=== PATIENT | male | born 1965 | race American Indian/Alaskan Native ===

== ENCOUNTER 2019-03-02 23:28 | Emergency (ER) | payer OTHER, SELFPAY ==
[2019-03-02 23:37] VITALS: BP 136/84; PULSE 80; RESP 18; TEMP 36.8; O2SAT 99
[2019-03-02 23:46] LABS: Appearance Urine UA CLEAR; Bilirubin Urine UA NEGATIVE (NEGATIVE); Color Urine UA YELLOW; Glucose Urine UA NEGATIVE (Negative); Ketones Urine UA NEGATIVE (NEGATIVE); Leukocyte Esterase Urine UA TRACE (NEGATIVE); Nitrite Urine UA NEGATIVE (Negative); Occult Blood Urine UA 3+ (Negative); Protein Urine UA NEGATIVE (Negative); Urobilinogen Urine UA 0.2 E.U./dL (0.2)
[2019-03-02 23:53] LABS: RBC Urine 1-5/HPF (0-5/HPF)
[2019-03-02 23:54] LABS: Bacteria Urine Occasional (0-1)
--- NOTE | 2019-03-02 23:54 | DI.CT.S_ITS ---
PROCEDURE: CT ABDOMEN PELVIS W CON INDICATIONS: generalized abd pain TECHNIQUE: After the administration of intravenous contrast, 5 mm thick sections acquired from the diaphragm to the symphysis. 5 mm coronal and sagittal reformats were acquired. For radiation dose reduction, the following was used: automated exposure control, adjustment of mA and/or kV according to patient size. COMPARISON: [facility], CT, ABD/PELVIS W/CON (PNL), 06/22/2014, 7:54. FINDINGS: Image quality: Excellent. ABDOMEN: Lung bases: Bibasilar dependent atelectasis. Heart size is normal. Solid organs: There is hepatic steatosis. Liver is normal in size and enhancement. Gallbladder is surgically absent. Biliary system is non dilated. Pancreas enhances normally. Spleen is normal in size and enhancement. No adrenal nodules. Kidneys demonstrate normal size and enhancement, without hydronephrosis. A 5 mm nonobstructing right renal stone is present. Peritoneum and bowel: There is diffuse thickening of sigmoid colon. A 2.9 x 4.2 cm thickwalled fluid-filled structure seen right of the sigmoid colon suspicious for a abscess. A few colonic diverticula are noted proximal to the area of thickening. Bowel loops demonstrate normal caliber. No free fluid or air. Nodes and vessels: No retroperitoneal or mesenteric adenopathy by size criteria. Aorta and inferior vena cava are normal in size. Miscellaneous: No ventral hernias. PELVIS: Genitourinary: Bladder wall thickness is normal. Enlarged prostate. Miscellaneous: No inguinal hernias or adenopathy. Bones: No suspicious bony lesions. No vertebral body compression fractures. IMPRESSION: 1. Diffuse thickening of sigmoid colon suggesting segmental colitis or diverticulitis. There are a few colonic diverticula proximal to the area of colonic thickening. A 2.9 x 4.2 cm thick-walled fluid collection is present in the pelvis right of the sigmoid colon, suspicious for an abscess. 2. Hepatic steatosis. 3. A 5 mm nonobstructing right renal stone. 4. Enlarged prostate. No significant discrepancy with the hourly shift manager radiology preliminary report. Dictated by: Lilliam Fisher M.D. on 03/03/2019 at 7:24 Transcribed by: KIMBERLI on 03/03/2019 at 7:28 Approved by: Lilliam Fisher M.D. on 03/03/2019 at 10:41
--- NOTE | 2019-03-02 23:54 | ED.MALEGU ---
HPI - Male Genitourinary General Chief complaint: Urogenital-Male Stated complaint: bladder infection, unable to lay down on rx Time Seen by Provider: 03/02/19 23:42 Source: patient Mode of arrival: Ambulatory Limitations: no limitations History of Present Illness HPI Narrative: Patient is a 54-year-old male arrives the emergency department for right-sided lower back pain radiating down the back of his leg that is worse with palpation and also pain on his right flank radiating around to the front. He states that a couple days ago he had pain with defecating. He went to go see the clinic near his house. He stated that he was started on Augmentin. He stated that he was told that he potentially has a urinary tract infection but he was unsure. He states they did do a urine sample. He also states that the provider that time did a rectal exam potentially told him that he had an infection of his prostate. He has been taking these medications. He states that the pain with defecation is now going on however has the new symptoms that brought him in today. He states he has had a kidney stone in the past. He states that his right-sided flank pain feels somewhat like prior history of kidney stone. States that it was difficult for him to lay down secondary to the pain. Related Data Home Medications Medication Instructions Recorded Confirmed Cephalexin (Keflex) 500 mg PO QID #0 07/11/09 HYDROCODONE/ACET 5/500 - 1 - 2 tab PO Q4-6H PRN #0 07/11/09 (Hydrocodon-Acetaminophen 5-500) Previous Rx's Medication Instructions Recorded ciprofloxacin HCl 500 mg PO BID 14 Days #28 tab 03/03/19 cyclobenzaprine 10 mg PO TID PRN #10 tab 03/03/19 tramadol [Ultram] 50 mg PO Q6H PRN #10 tab 03/03/19 Allergies Allergy/AdvReac Type Severity Reaction Status Date / Time INGREDIENT: NO KNOWN - NO Allergy Unknown Uncoded 06/30/17 12:32 KNOWN DRUG ALLERGY Review of Systems Constitutional Constitutional: Denies fever(s) Cardiovascular Cardiovascular: Denies chest pain and Denies dyspnea Respiratory Respiratory: Denies dyspnea Gastrointestinal Comments: Right-sided flank pain Genitourinary Genitourinary: Denies dysuria Comments: No pain with bowel movements Musculoskeletal Musculoskeletal: Reports back pain and Reports radiating pain into limb (Right leg) Integumentary/Breasts Skin/Breast: Denies rash Neurologic Neurologic: Denies burning sensations Hematologic/Lymphatic Hematologic/Lymphatic: Denies easy bleeding and Denies easy bruising Allergic/Immunologic Allergic/Immunologic: Denies urticaria Patient History Medical History Kidney stones (Acute) Social History Smoking Status: Current every day smoker Smoking Status: Current every day smoker alcohol intake frequency: 0-2 drinks per day Substance Use Type: marijuana Exam Initial Vital Signs Initial Vital Signs: Vital Signs Temperature 98.2 F 03/02/19 23:37 Pulse Rate 80 03/02/19 23:37 Respiratory Rate 18 03/02/19 23:37 Blood Pressure 136/84 03/02/19 23:37 Pulse Oximetry 99 03/02/19 23:37 Const General: cooperative and well developed Orientation: alert, awake and oriented x3 HENMT Head: normal to inspection and normocephalic Resp Effort & Inspection: normal respiratory effort Auscultation: clear to auscultation bilaterally Cardio Rate: regular rate Rhythm: regular rhythm GI Inspection: non-distended Palpation: soft, No firm and No tender Back/Spine/Pelvis Back: CVA tenderness right Other: Right-sided paraspinal lumbar tenderness to palpation Skin Lesions: no lesions Rashes: no rashes Neuro General: alert and awake Cognition: normal cognition Speech: speech normal Extrem General: normal to inspection and capillary refill normal Psych Appearance: grossly normal Course Orders Ordered: ED Orders 03/02/19 23:42 Urinalysis and Microscopic Stat Urine Culture Stat 03/02/19 23:48 Complete Blood Count AUTO DIFF Stat Comprehensive Metabolic Panel Stat Lipase Stat 03/02/19 23:54 CT abdomen pelvis w con Stat Discontinued Medications Cyclobenzaprine HCl (Flexeril 10 Mg Prepack) 1 bottle MISC SEEINSTR ONE Stop: 03/03/19 01:25 Last Admin: 03/03/19 01:38 Dose: 1 bottle Documented by: LEVI Sodium Chloride (Normal Saline 0.9%) 1,000 mls @ 1,000 mls/hr IV BOLUS ONE Stop: 03/03/19 00:52 Last Infusion: 03/03/19 01:38 Dose: 0 mls/hr Documented by: Admin: 03/02/19 23:58 Dose: 1,000 mls/hr Documented by: LYNNE Ketorolac Tromethamine (Toradol) 30 mg IV NOW ONE Stop: 03/02/19 23:54 Last Admin: 03/02/19 23:58 Dose: 30 mg Documented by: LYNNE Tramadol HCl (Ultram 50mg Prepack) 1 bottle MISC SEEINSTR ONE Stop: 03/03/19 01:25 Last Admin: 03/03/19 01:38 Dose: 1 bottle Documented by: LEVI Vital Signs Vital signs: Vital Signs - 8 hr 03/02/19 23:37 03/03/19 01:39 Temperature 98.2 F Pulse Rate 80 78 Respiratory Rate 18 20 Blood Pressure 136/84 129/79 Pulse Oximetry 99 99 MDM - Male Genitourinary Lab Data Result diagrams: 03/02/19 23:48 03/02/19 23:48 Labs: Lab Results 03/02/19 03/02/19 03/02/19 Range/Units 23:42 23:48 23:48 WBC 15.4 H (4.5-11.0) X10^3/uL RBC 5.49 (4.5-5.9) X10^6/uL Hgb 15.2 (13.5-17.5) g/dL Hct 44.3 (41-53) % MCV 80.8 (80-100) fL MCH 27.7 (26-34) PG MCHC 34.3 (30-36) % RDW 14.1 (11.6-14.8) % Plt Count 376 (150-400) X10^3/uL Neut % (Auto) 78.7 H (50-75) % Lymph % (Auto) 13.0 L (25-40) % [place]bour % (Auto) 6.3 (3-14) % Eos % (Auto) 1.6 L (2-4) % Baso % (Auto) 0.4 (0-2) % Neut # (Auto) 34925 H (3743-3158) /uL Lymph # (Auto) 2000 (0884-2684) /uL Barbour # (Auto) 1000 H (0-900) /uL Eos # (Auto) 200 (0-450) /uL Baso # (Auto) 100 (0-100) /uL Sodium 136 L (137-145) mmol/L Potassium 4.4 (3.4-5.1) mmol/L Chloride 103 (98-107) mmol/L Carbon Dioxide 23 (22-32) mmol/L BUN 17 (9-20) mg/dL Creatinine 0.90 (0.66-1.25) mg/dL Estimated GFR > 60.0 (>60) mL/min BUN/Creatinine Ratio 18.9 (6-22) Glucose 137 H (70-100) mg/dL Calcium 10.2 (8.4-10.2) mg/dL Total Bilirubin 0.8 (0.2-1.3) mg/dL AST 17 (17-59) IU/L ALT 13 (<50) IU/L Alkaline Phosphatase 99 (38-126) U/L Total Protein 8.8 H (6.3-8.2) g/dL Albumin 4.8 (3.5-5.0) g/dL Globulin 4.0 (1.7-4.1) g/dL Albumin/Globulin Ratio 1.2 (1.0-2.8) Lipase 104 (23-300) U/L Urine Color Yellow Urine Appearance Clear Urine pH 6.0 (4.5-8.0) Ur Specific Sutton 1.020 (1.000-1.035) Urine Protein Negative (Negative) Urine Glucose (UA) Negative (Negative) g/dL Urine Ketones Negative (NEGATIVE) Urine Occult Blood 3+ H (Negative) Urine Nitrate Negative (Negative) Urine Bilirubin Negative (NEGATIVE) Urine Urobilinogen 0.2 (0.2) E.U./dL Ur Leukocyte Esterase Trace H (NEGATIVE) Urine RBC 1-5/hpf (0-5/HPF) Urine WBC 1-5/hpf (0-5/HPF) Urine Bacteria Occasional (0-1) (None) Hyaline Casts 0-1/lpf (None) Urine Mucus 1+ H (Negative) Ur Culture Indicated? Specimen cultured Imaging Data CT scan - abdomen: Radiologist's impression: Suspected chronic walled-off abscess adjacent to an abnormally thickened sigmoid colon. Recommend further clinical investigation. Nonobstructing right renal stone MDM Narrative Medical decision making narrative: Patient is nontoxic appearing. He is afebrile. Does have a leukocytosis. Is currently on Augmentin. Patient does have hematuria but no other signs of urinary tract infection. His CT scan shows renal stone but no ureteral stone. His right sided lower back pain is most consistent with musculoskeletal etiology. He stated that the radiation down to his right leg he resolved with Toradol. No CT scan findings that definitively explain the right-sided flank pain. Potentially the right-sided renal stone or potentially he has passed a stone prior to the CT scan. I do have low suspicion for pyelonephritis. He states that the rectal pain that he had a couple days ago is not there. He did have a rectal exam at his last visit according to his report and was told that he potentially has prostatitis. The very small 2.5 x 1 x 1 suspicion of a abscess in the left side of the abdomen exit the sigmoid colon does not correspond to any of his presenting symptoms today. I did discuss this with Dr. Joy with general surgery who stated that that size of an abscess would not be amenable to IR drainage and he stated that it would not be a surgical issue. Plan will be is to change the patient's antibiotics to ciprofloxacin. This would treat prostatitis, urinary tract infection and would potentially cover if this finding on the CT scan his not necessarily chronic but more acute. Given the fact that he is nontoxic appearing and afebrile on could tolerate oral intakes feel that we could treat this as an outpatient. Patient is going to contact his primary provider for follow-up. He was given return precautions and follow-up instructions. He expressed understanding and agreement with plan. Discharge Plan Departure Patient Disposition: Home Clinical Impression: Acute flank pain Acute lumbar back pain Qualifiers: Back pain laterality: right Sciatica presence: with sciatica Discharge Date/Time: 03/03/19 01:40 Instructions: DI for Low Back Pain Activity Restrictions/Additional Instructions: Recommend that you stop taking the antibiotic that you were prescribed the other day. Start taking the prescriptions to were given this evening. Recommend that tomorrow or the beginning of next week you contact your primary provider for a follow-up. Return to the emergency department for any new or worsening symptoms Prescriptions: New tramadol [Ultram] 50 mg tablet 50 mg PO Q6H PRN (Reason: pain) Qty: 10 RF: 0 cyclobenzaprine 10 mg tablet 10 mg PO TID PRN (Reason: muscle spasm) Qty: 10 RF: 0 ciprofloxacin HCl 500 mg tablet 500 mg PO BID 14 Days Qty: 28 RF: 0 No Action Cephalexin (Keflex) 500 mg PO QID Qty: 0 RF: 0 HYDROCODONE/ACET 5/500 - (Hydrocodon-Acetaminophen 5-500) 1 - 2 tab PO Q4-6H PRN Qty: 0 RF: 0
[2019-03-02 23:55] LABS: WBC Urine 1-5/HPF (0-5/HPF)
[2019-03-02 23:56] LABS: Hyaline Casts Urine 0-1/LPF; Mucus Urine 1+ (Negative)
[2019-03-02 23:57] LABS: Culture Indicated Urine Specimen Cultured
[2019-03-02] MEDS: SODIUM CHLORIDE 0.9% 1,000 ML 1000 ML IV (23:58)
[2019-03-02] MEDS: KETOROLAC 60 MG/2 ML VIAL 30 MG IV (23:58)
[2019-03-03 00:03] LABS: Add Manual Diff / Slide Review NO; Basophils Absolute Auto 100 /uL (0-100); Basophils Percent Auto 0.4 % (0-2); Eosinophils Absolute Auto 200 /uL (0-450); Eosinophils Percent Auto 1.6 % (2-4); Hematocrit 44.3 % (41-53); Hemoglobin 15.2 g/dL (13.5-17.5); Lymphocytes Absolute Auto 2000 /uL (1100-4500); Mean Corpuscular HGB Conc 34.3 % (30-36); Mean Corpuscular Hemoglobin 27.7 PG (26-34); Mean Corpuscular Volume 80.8 fL (80-100); Monocytes Absolute Auto 1000 /uL (0-900); Monocytes Percent Auto 6.3 % (3-14); Neutrophils Absolute Auto 12100 /uL (1500-7000); Neutrophils Percent Auto 78.7 % (50-75); Platelet Count 376 X10^3/uL (150-400); Red Blood Cell Count 5.49 X10^6/uL (4.5-5.9); Red Cell Distribution Width 14.1 % (11.6-14.8); White Blood Cell Count 15.4 X10^3/uL (4.5-11.0)
[2019-03-03 00:05] LABS: Alanine Aminotransferase 13 IU/L (<50); Albumin 4.8 g/dL (3.5-5.0); Albumin Globulin Ratio 1.2 (1.0-2.8); Alkaline Phosphatase 99 U/L (38-126); Aspartate Aminotransferase 17 IU/L (17-59); BUN Creatinine Ratio 18.9 (6-22); Bilirubin Total 0.8 mg/dL (0.2-1.3); Blood Urea Nitrogen 17 mg/dL (9-20); Calcium 10.2 mg/dL (8.4-10.2); Carbon Dioxide 23 mmol/L (22-32); Chloride 103 mmol/L (98-107); Estimated Glomerular Filt Rate > 60.0 mL/min (>60); Glucose 137 mg/dL (70-100); HEMOLYSIS < 15 (0-50); Lipase 104 U/L (23-300); Potassium 4.4 mmol/L (3.4-5.1); Sodium 136 mmol/L (137-145); Total Protein 8.8 g/dL (6.3-8.2)
[2019-03-03] MEDS: TRAMADOL 50 MG PREPACK 1 BOTTLE MISC (01:38)
[2019-03-03] MEDS: CYCLOBENZAPRINE 10 MG PREPACK 1 BOTTLE MISC (01:38)
[2019-03-03 01:39] VITALS: BP 129/79; PULSE 78; RESP 20; O2SAT 99
== END 2019-03-03 01:40 | disposition home or self-care (01) ==
PROVIDERS: Emergency Provider Emergency Medicine
DX: R10.9 Unspecified abdominal pain (principal); M54.41 Lumbago with sciatica, right side
CPT/HCPCS: 74177; 80053; 81001; 83690; 85025; 87086; 96374; 99283; 99284; J1885; Q9967

== ENCOUNTER 2022-06-03 02:02 | Inpatient (IN) | payer OTHER, SELFPAY ==
[2022-06-03] VITALS (20 sets, daily range): BP systolic 100–121; BP diastolic 58–79; PULSE 62–87; RESP 16–20; TEMP 36.2–36.7; O2SAT 96–99; BMI 28.8; BMI 28.1
[2022-06-03] MEDS: ONDANSETRON 4 MG/2 ML INJ IV (02:49)
[2022-06-03] MEDS: SODIUM CHLORIDE 0.9% 1,000 ML 1000 ML IV ×2 (02:50→04:52)
[2022-06-03 04:04] LABS: Alanine Aminotransferase 27 IU/L (<50); Albumin Globulin Ratio 1.1 (1.0-2.8); Alkaline Phosphatase 106 U/L (38-126); Aspartate Aminotransferase 29 IU/L (17-59); BUN Creatinine Ratio 9.9 (6-22); Blood Urea Nitrogen 62 mg/dL (9-20); Calcium 9.8 mg/dL (8.4-10.2); Carbon Dioxide 14 mmol/L (22-32); Chloride 99 mmol/L (98-107); Estimated Glomerular Filt Rate 10 mL/min (>60); Globulin 4.6 g/dL (1.7-4.1); Glucose 163 mg/dL (70-100); HEMOLYSIS 43 (0-50); Lipase 307 U/L (23-300); Potassium 5.2 mmol/L (3.4-5.1); Sodium 133 mmol/L (137-145); Total Protein 9.6 g/dL (6.3-8.2)
[2022-06-03 04:07] LABS: Add Manual Diff / Slide Review NO; Basophils Absolute Auto 0 /uL (0-100); Basophils Percent Auto 0.2 % (0-2); Eosinophils Absolute Auto 100 /uL (0-450); Eosinophils Percent Auto 0.4 % (2-4); Hematocrit 52.9 % (41-53); Hemoglobin 17.7 g/dL (13.5-17.5); Lymphocytes Absolute Auto 1700 /uL (1100-4500); Lymphocytes Percent Auto 11.3 % (25-40); Mean Corpuscular HGB Conc 33.4 % (30-36); Mean Corpuscular Hemoglobin 27.2 PG (26-34); Mean Corpuscular Volume 81.4 fL (80-100); Monocytes Absolute Auto 1000 /uL (0-900); Monocytes Percent Auto 6.9 % (3-14); Neutrophils Absolute Auto 12200 /uL (1500-7000); Neutrophils Percent Auto 81.2 % (50-75); Platelet Count 288 X10^3/uL (150-400); Red Blood Cell Count 6.49 X10^6/uL (4.5-5.9); Red Cell Distribution Width 14.7 % (11.6-14.8)
--- NOTE | 2022-06-03 05:42 | ED_ITS ---
HPI - Nausea/Vomiting/Diarrhea <Isela Schneider DO - Last Filed: 06/04/22 00:53> General Chief complaint: Nausea/Vomiting/Diarrhea Stated complaint: throwing up and pooping green Time Seen by Provider: 06/03/22 03:36 Source: patient and family Mode of arrival: Ambulatory History of Present Illness HPI Narrative: Patient is a 57-year-old history of hypertension hyperlipidemia presenting today with few days of vomiting and diarrhea. reports that he has not Peed in a day half. He is an unable to keep anything down. He denies any recent travel he thinks that he ate something bad but no one else is sick at home. He is not had any bloody stool or or hematemesis. Is having some mild abdominal cramping. Reports feeling dizzy and lightheaded but has not passed out Related Data Home Medications Medication Instructions Recorded Confirmed gemfibrozil 600 mg tablet 600 mg PO DAILY 06/03/22 06/03/22 lisinopril 10 mg tablet 10 mg PO DAILY 06/03/22 06/03/22 Allergies Allergy/AdvReac Type Severity Reaction Status Date / Time INGREDIENT: NO KNOWN - NO Allergy Unknown Uncoded 06/30/17 12:32 KNOWN DRUG ALLERGY Review of Systems <Isela Schneider DO - Last Filed: 06/04/22 00:53> Review of Systems ROS Unobtainable: All systems reviewed & are unremarkable except as noted in HPI and below Patient History <Isela Schneider DO - Last Filed: 06/04/22 00:53> Medical History (Updated 06/03/22 @ 09:31 by Wendy Batres DO) Kidney stones Social History household members: family Smoking Status: Current every day smoker alcohol intake: current Smoking Status: Current every day smoker alcohol intake frequency: 0-2 drinks per day Substance Use Type: marijuana Exam <Isela Schneider DO - Last Filed: 06/04/22 00:53> Initial Vital Signs Initial Vital Signs: Vital Signs Temperature 98.1 F 06/03/22 02:09 Pulse Rate 87 06/03/22 02:09 Respiratory Rate 20 06/03/22 02:09 Blood Pressure 112/79 06/03/22 02:09 Pulse Oximetry 99 06/03/22 02:09 Oxygen Delivery Method Room Air 06/03/22 02:09 GENERAL: Alert male appears to not feel well HEENT: Head atraumatic,EOMI, pupils reactive, face symmetric, dry mucous membranes CARDIOVASCULAR: Regular rate and rhythm without murmurs, rubs or gallops. RESPIRATORY: Breath sounds equal bilaterally, no wheezes rales or rhonchi. ABDOMEN: Soft, nontender. Normoactive bowel sounds all 4 quadrants. No guarding or rebound. EXTREMITIES: Normal range of motion, no clubbing or edema. Neurovascularly intact NEUROLOGICAL: Alert and oriented x4. SKIN: Warm, dry, no laceration, no petechiae, no rashes or lesions. <Wendy Batres, DO - Last Filed: 06/03/22 10:07> Initial Vital Signs Initial Vital Signs: Vital Signs Temperature 98.1 F 06/03/22 02:09 Pulse Rate 87 06/03/22 02:09 Respiratory Rate 20 06/03/22 02:09 Blood Pressure 112/79 06/03/22 02:09 Pulse Oximetry 99 06/03/22 02:09 Oxygen Delivery Method Room Air 06/03/22 02:09 Course <Isela Schneider, DO - Last Filed: 06/04/22 00:53> Orders Ordered: Lactated Ringer's (Lactated Ringers) 1,000 mls @ 150 mls/hr IV CONT TRENT Last Admin: 06/03/22 19:22 Dose: 150 mls/hr Documented By: Infusion: 06/03/22 19:22 Dose: 150 mls/hr Documented By: Admin: 06/03/22 13:05 Dose: 150 mls/hr Documented By: Infusion: 06/03/22 13:05 Dose: 0 mls/hr Documented By: Infusion: 06/03/22 12:23 Dose: 0 mls/hr Documented By: Admin: 06/03/22 05:43 Dose: 150 mls/hr Documented By: SAHRA Ondansetron HCl (Ondansetron 4 Mg/2 Ml Inj) 4 mg IV Q4HR PRN PRN Reason: Nausea And Vomiting Ondansetron HCl (Ondansetron 4 Mg Odt) 4 mg SL Q4HR PRN PRN Reason: Nausea Discontinued Medications Sodium Chloride (Normal Saline 0.9%) 1,000 mls @ 1,000 mls/hr IV BOLUS ONE Stop: 06/03/22 03:48 Last Infusion: 06/03/22 04:43 Dose: 0 mls/hr Documented By: Admin: 06/03/22 02:50 Dose: 1,000 mls/hr Documented By: JACQUELYN Sodium Chloride (Normal Saline 0.9%) 1,000 mls @ 1,000 mls/hr IV BOLUS ONE Stop: 06/03/22 04:35 Last Admin: 06/03/22 04:44 Dose: Not Given Documented By: JACQUELYN Sodium Chloride (Normal Saline 0.9%) 1,000 mls @ 1,000 mls/hr IV BOLUS ONE Stop: 06/03/22 05:46 Last Infusion: 06/03/22 05:45 Dose: 0 mls/hr Documented By: Admin: 06/03/22 04:52 Dose: 1,000 mls/hr Documented By: JACQUELYN Piperacillin Sod/Tazobactam (Sod 4.5 gm/ Sodium Chloride) 100 mls @ 200 mls/hr IV NOW ONE Stop: 06/03/22 08:44 Last Infusion: 06/03/22 09:45 Dose: 0 mls/hr Documented By: Admin: 06/03/22 09:13 Dose: 200 mls/hr Documented By: LONA Lidocaine HCl (Lidocaine 2% (Glydo) 6 Ml Gel) 6 ml TOP NOW ONE Stop: 06/03/22 06:35 Last Admin: 06/03/22 06:48 Dose: 6 ml Documented By: JACQUELYN Ondansetron HCl (Ondansetron 4 Mg Odt) 4 mg SL NOW PRN PRN Reason: Nausea And Vomiting Ondansetron HCl (Ondansetron 4 Mg/2 Ml Inj) 4 mg IV NOW PRN PRN Reason: Nausea And Vomiting Last Admin: 06/03/22 02:49 Dose: 4 mg Documented By: JACQUELYN Pantoprazole Sodium (Pantoprazole 40 Mg Vial) 40 mg IV NOW ONE Stop: 06/03/22 06:27 Last Admin: 06/03/22 06:47 Dose: 40 mg Documented By: JACQUELYN Vital Signs Vital signs: Vital Signs - 8 hr 06/03/22 02:09 06/03/22 05:26 06/03/22 05:26 Temperature 98.1 F Pulse Rate 87 81 Respiratory Rate 20 16 Blood Pressure 112/79 112/68 112/68 Pulse Oximetry 99 97 Oxygen Delivery Method Room Air 06/03/22 05:30 06/03/22 05:30 06/03/22 06:00 Temperature Pulse Rate 74 Respiratory Rate Blood Pressure 103/61 119/72 Pulse Oximetry 96 Oxygen Delivery Method 06/03/22 06:00 06/03/22 06:30 06/03/22 06:30 Temperature Pulse Rate 82 79 Respiratory Rate Blood Pressure 112/76 Pulse Oximetry 96 96 Oxygen Delivery Method 06/03/22 06:54 06/03/22 06:54 06/03/22 07:00 Temperature Pulse Rate 81 Respiratory Rate Blood Pressure 118/77 116/76 Pulse Oximetry 98 Oxygen Delivery Method 06/03/22 07:00 06/03/22 07:30 06/03/22 07:30 Temperature Pulse Rate 79 86 Respiratory Rate Blood Pressure 113/72 Pulse Oximetry 97 98 Oxygen Delivery Method 06/03/22 08:00 06/03/22 08:00 Temperature Pulse Rate 81 Respiratory Rate Blood Pressure 100/64 Pulse Oximetry 98 Oxygen Delivery Method <Wendy Batres, DO - Last Filed: 06/03/22 10:07> Orders Ordered: Lactated Ringer's (Lactated Ringers) 1,000 mls @ 150 mls/hr IV CONT TRENT Last Admin: 06/03/22 19:22 Dose: 150 mls/hr Documented By: Infusion: 06/03/22 19:22 Dose: 150 mls/hr Documented By: Admin: 06/03/22 13:05 Dose: 150 mls/hr Documented By: Infusion: 06/03/22 13:05 Dose: 0 mls/hr Documented By: Infusion: 06/03/22 12:23 Dose: 0 mls/hr Documented By: Admin: 06/03/22 05:43 Dose: 150 mls/hr Documented By: SAHRA Ondansetron HCl (Ondansetron 4 Mg/2 Ml Inj) 4 mg IV Q4HR PRN PRN Reason: Nausea And Vomiting Ondansetron HCl (Ondansetron 4 Mg Odt) 4 mg SL Q4HR PRN PRN Reason: Nausea Discontinued Medications Sodium Chloride (Normal Saline 0.9%) 1,000 mls @ 1,000 mls/hr IV BOLUS ONE Stop: 06/03/22 03:48 Last Infusion: 06/03/22 04:43 Dose: 0 mls/hr Documented By: Admin: 06/03/22 02:50 Dose: 1,000 mls/hr Documented By: JACQUELYN Sodium Chloride (Normal Saline 0.9%) 1,000 mls @ 1,000 mls/hr IV BOLUS ONE Stop: 06/03/22 04:35 Last Admin: 06/03/22 04:44 Dose: Not Given Documented By: JACQUELYN Sodium Chloride (Normal Saline 0.9%) 1,000 mls @ 1,000 mls/hr IV BOLUS ONE Stop: 06/03/22 05:46 Last Infusion: 06/03/22 05:45 Dose: 0 mls/hr Documented By: Admin: 06/03/22 04:52 Dose: 1,000 mls/hr Documented By: JACQUELYN Piperacillin Sod/Tazobactam (Sod 4.5 gm/ Sodium Chloride) 100 mls @ 200 mls/hr IV NOW ONE Stop: 06/03/22 08:44 Last Infusion: 06/03/22 09:45 Dose: 0 mls/hr Documented By: Admin: 06/03/22 09:13 Dose: 200 mls/hr Documented By: LONA Lidocaine HCl (Lidocaine 2% (Glydo) 6 Ml Gel) 6 ml TOP NOW ONE Stop: 06/03/22 06:35 Last Admin: 06/03/22 06:48 Dose: 6 ml Documented By: JACQUELYN Ondansetron HCl (Ondansetron 4 Mg Odt) 4 mg SL NOW PRN PRN Reason: Nausea And Vomiting Ondansetron HCl (Ondansetron 4 Mg/2 Ml Inj) 4 mg IV NOW PRN PRN Reason: Nausea And Vomiting Last Admin: 06/03/22 02:49 Dose: 4 mg Documented By: JACQUELYN Pantoprazole Sodium (Pantoprazole 40 Mg Vial) 40 mg IV NOW ONE Stop: 06/03/22 06:27 Last Admin: 06/03/22 06:47 Dose: 40 mg Documented By: JACQUELYN Vital Signs Vital signs: Vital Signs - 8 hr 06/03/22 02:09 06/03/22 05:26 06/03/22 05:26 Temperature 98.1 F Pulse Rate 87 81 Respiratory Rate 20 16 Blood Pressure 112/79 112/68 112/68 Pulse Oximetry 99 97 Oxygen Delivery Method Room Air 06/03/22 05:30 06/03/22 05:30 06/03/22 06:00 Temperature Pulse Rate 74 Respiratory Rate Blood Pressure 103/61 119/72 Pulse Oximetry 96 Oxygen Delivery Method 06/03/22 06:00 06/03/22 06:30 06/03/22 06:30 Temperature Pulse Rate 82 79 Respiratory Rate Blood Pressure 112/76 Pulse Oximetry 96 96 Oxygen Delivery Method 06/03/22 06:54 06/03/22 06:54 06/03/22 07:00 Temperature Pulse Rate 81 Respiratory Rate Blood Pressure 118/77 116/76 Pulse Oximetry 98 Oxygen Delivery Method 06/03/22 07:00 06/03/22 07:30 06/03/22 07:30 Temperature Pulse Rate 79 86 Respiratory Rate Blood Pressure 113/72 Pulse Oximetry 97 98 Oxygen Delivery Method 06/03/22 08:00 06/03/22 08:00 Temperature Pulse Rate 81 Respiratory Rate Blood Pressure 100/64 Pulse Oximetry 98 Oxygen Delivery Method MDM - Nausea/Vomiting/Diarrhea <Isela Schneider, DO - Last Filed: 06/04/22 00:53> Lab Data 06/03/22 02:40 06/03/22 05:56 Labs: Lab Results 06/03/22 06/03/22 06/03/22 Range/Units 02:40 02:40 02:40 WBC 15.0 H (4.5-11.0) X10^3/uL RBC 6.49 H (4.5-5.9) X10^6/uL Hgb 17.7 H (13.5-17.5) g/dL Hct 52.9 (41-53) % MCV 81.4 (80-100) fL MCH 27.2 (26-34) PG MCHC 33.4 (30-36) % RDW 14.7 (11.6-14.8) % Plt Count 288 (150-400) X10^3/uL Neut % (Auto) 81.2 H (50-75) % Lymph % (Auto) 11.3 L (25-40) % [place] % (Auto) 6.9 (3-14) % Eos % (Auto) 0.4 L (2-4) % Baso % (Auto) 0.2 (0-2) % Neut # (Auto) 73039 H (0752-0641) /uL Lymph # (Auto) 1700 (6136-6803) /uL [place] # (Auto) 1000 H (0-900) /uL Eos # (Auto) 100 (0-450) /uL Baso # (Auto) 0 (0-100) /uL Sodium 133 L (137-145) mmol/L Potassium 5.2 H (3.4-5.1) mmol/L Chloride 99 (98-107) mmol/L Carbon Dioxide 14 L (22-32) mmol/L BUN 62 H (9-20) mg/dL Creatinine 6.28 H (0.66-1.25) mg/dL Estimated GFR 10 L (>60) mL/min BUN/Creatinine Ratio 9.9 (6-22) Glucose 163 H (70-100) mg/dL Lactate 1.0 (0.7-2.1) mmol/L Calcium 9.8 (8.4-10.2) mg/dL Total Bilirubin 1.0 (0.2-1.3) mg/dL AST 29 (17-59) IU/L ALT 27 (<50) IU/L Alkaline Phosphatase 106 (38-126) U/L Total Protein 9.6 H (6.3-8.2) g/dL Albumin 5.0 (3.5-5.0) g/dL Globulin 4.6 H (1.7-4.1) g/dL Albumin/Globulin Ratio 1.1 (1.0-2.8) Lipase 307 H (23-300) U/L Urine Color Urine Appearance Urine pH (4.5-8.0) Ur Specific [place] (1.000-1.035) Urine Protein (Negative) Urine Glucose (UA) (Negative) g/dL Urine Ketones (NEGATIVE) Urine Occult Blood (Negative) Urine Nitrate (Negative) Urine Bilirubin (NEGATIVE) Urine Urobilinogen (0.2) E.U./dL Ur Leukocyte Esterase (NEGATIVE) Urine RBC (0-5/HPF) Urine WBC (0-5/HPF) Ur Squamous Epith Cells (0-5/HPF) Urine Bacteria (None) Hyaline Casts (None) Ur Culture Indicated? Ur Random Sodium (30-90) mmol/L Urine Creatinine mg/dL Stl C. cayetanensis PCR (Not Detect) Stool Rotavirus (PCR) (Not Detect) Stool Adenovirus (PCR) (Not Detect) Stool Astrovirus (PCR) (Not Detect) Stool Cryptosporidium PCR (Not Detect) Stl E.coli Shiga Tox PCR (Not Detect) St Sh/Enteroin Ecoli PCR (Not Detect) Stool E coli O157 PCR Stl Enterotoxigenic E PCR (Not Detect) Stool EPEC (PCR) (Not Detect) Stl E. histolytica PCR (Not Detect) Stool Giardia Lamblia PCR (Not Detect) Stool Sapovirus (PCR) (Not Detect) Stl P. shigelloides PCR (Not Detect) St Y.enterocolitica PCR (Not Detect) Stool Vibrio (PCR) (Not Detect) Stl Vibrio cholerae PCR (Not Detect) Stl Enteroaggr Ecoli PCR (Not Detect) Stl Norovirus GI/GII PCR (Not Detect) Campylobacter (PCR) (Not Detect) C. difficile Tox (PCR) (Not Detect) Salmonella (PCR) (Not Detect) 06/03/22 06/03/22 06/03/22 Range/Units 05:56 06:05 06:05 WBC (4.5-11.0) X10^3/uL RBC (4.5-5.9) X10^6/uL Hgb (13.5-17.5) g/dL Hct (41-53) % MCV (80-100) fL MCH (26-34) PG MCHC (30-36) % RDW (11.6-14.8) % Plt Count (150-400) X10^3/uL Neut % (Auto) (50-75) % Lymph % (Auto) (25-40) % [place] % (Auto) (3-14) % Eos % (Auto) (2-4) % Baso % (Auto) (0-2) % Neut # (Auto) (7820-4141) /uL Lymph # (Auto) (2372-5681) /uL [place] # (Auto) (0-900) /uL Eos # (Auto) (0-450) /uL Baso # (Auto) (0-100) /uL Sodium 136 L (137-145) mmol/L Potassium 5.0 (3.4-5.1) mmol/L Chloride 105 (98-107) mmol/L Carbon Dioxide 16 L (22-32) mmol/L BUN 60 H (9-20) mg/dL Creatinine 5.02 H (0.66-1.25) mg/dL Estimated GFR 13 L (>60) mL/min BUN/Creatinine Ratio 12.0 (6-22) Glucose 132 H (70-100) mg/dL Lactate (0.7-2.1) mmol/L Calcium 8.0 L (8.4-10.2) mg/dL Total Bilirubin (0.2-1.3) mg/dL AST (17-59) IU/L ALT (<50) IU/L Alkaline Phosphatase (38-126) U/L Total Protein (6.3-8.2) g/dL Albumin (3.5-5.0) g/dL Globulin (1.7-4.1) g/dL Albumin/Globulin Ratio (1.0-2.8) Lipase (23-300) U/L Urine Color Yellow Urine Appearance Clear Urine pH 5.0 (4.5-8.0) Ur Specific [place] 1.020 (1.000-1.035) Urine Protein 2+ H (Negative) Urine Glucose (UA) Negative (Negative) g/dL Urine Ketones Negative (NEGATIVE) Urine Occult Blood 2+ H (Negative) Urine Nitrate Negative (Negative) Urine Bilirubin Negative (NEGATIVE) Urine Urobilinogen 0.2 (0.2) E.U./dL Ur Leukocyte Esterase Negative (NEGATIVE) Urine RBC 5-10/hpf H (0-5/HPF) Urine WBC None seen (0-5/HPF) Ur Squamous Epith Cells 1-5 /hpf (0-5/HPF) Urine Bacteria None seen (None) Hyaline Casts 5-10/lpf (None) Ur Culture Indicated? Cult not indicated Ur Random Sodium 63 (30-90) mmol/L Urine Creatinine 150.4 mg/dL Stl C. cayetanensis PCR (Not Detect) Stool Rotavirus (PCR) (Not Detect) Stool Adenovirus (PCR) (Not Detect) Stool Astrovirus (PCR) (Not Detect) Stool Cryptosporidium PCR (Not Detect) Stl E.coli Shiga Tox PCR (Not Detect) St Sh/Enteroin Ecoli PCR (Not Detect) Stool E coli O157 PCR Stl Enterotoxigenic E PCR (Not Detect) Stool EPEC (PCR) (Not Detect) Stl E. histolytica PCR (Not Detect) Stool Giardia Lamblia PCR (Not Detect) Stool Sapovirus (PCR) (Not Detect) Stl P. shigelloides PCR (Not Detect) St Y.enterocolitica PCR (Not Detect) Stool Vibrio (PCR) (Not Detect) Stl Vibrio cholerae PCR (Not Detect) Stl Enteroaggr Ecoli PCR (Not Detect) Stl Norovirus GI/GII PCR (Not Detect) Campylobacter (PCR) (Not Detect) C. difficile Tox (PCR) (Not Detect) Salmonella (PCR) (Not Detect) 06/03/22 Range/Units 06:22 WBC (4.5-11.0) X10^3/uL RBC (4.5-5.9) X10^6/uL Hgb (13.5-17.5) g/dL Hct (41-53) % MCV (80-100) fL MCH (26-34) PG MCHC (30-36) % RDW (11.6-14.8) % Plt Count (150-400) X10^3/uL Neut % (Auto) (50-75) % Lymph % (Auto) (25-40) % [place] % (Auto) (3-14) % Eos % (Auto) (2-4) % Baso % (Auto) (0-2) % Neut # (Auto) (6116-8083) /uL Lymph # (Auto) (6227-8149) /uL [place] # (Auto) (0-900) /uL Eos # (Auto) (0-450) /uL Baso # (Auto) (0-100) /uL Sodium (137-145) mmol/L Potassium (3.4-5.1) mmol/L Chloride (98-107) mmol/L Carbon Dioxide (22-32) mmol/L BUN (9-20) mg/dL Creatinine (0.66-1.25) mg/dL Estimated GFR (>60) mL/min BUN/Creatinine Ratio (6-22) Glucose (70-100) mg/dL Lactate (0.7-2.1) mmol/L Calcium (8.4-10.2) mg/dL Total Bilirubin (0.2-1.3) mg/dL AST (17-59) IU/L ALT (<50) IU/L Alkaline Phosphatase (38-126) U/L Total Protein (6.3-8.2) g/dL Albumin (3.5-5.0) g/dL Globulin (1.7-4.1) g/dL Albumin/Globulin Ratio (1.0-2.8) Lipase (23-300) U/L Urine Color Urine Appearance Urine pH (4.5-8.0) Ur Specific [place] (1.000-1.035) Urine Protein (Negative) Urine Glucose (UA) (Negative) g/dL Urine Ketones (NEGATIVE) Urine Occult Blood (Negative) Urine Nitrate (Negative) Urine Bilirubin (NEGATIVE) Urine Urobilinogen (0.2) E.U./dL Ur Leukocyte Esterase (NEGATIVE) Urine RBC (0-5/HPF) Urine WBC (0-5/HPF) Ur Squamous Epith Cells (0-5/HPF) Urine Bacteria (None) Hyaline Casts (None) Ur Culture Indicated? Ur Random Sodium (30-90) mmol/L Urine Creatinine mg/dL Stl C. cayetanensis PCR Not detected (Not Detect) Stool Rotavirus (PCR) Not detected (Not Detect) Stool Adenovirus (PCR) Not detected (Not Detect) Stool Astrovirus (PCR) Not detected (Not Detect) Stool Cryptosporidium PCR Not detected (Not Detect) Stl E.coli Shiga Tox PCR Not detected (Not Detect) St Sh/Enteroin Ecoli PCR Not detected (Not Detect) Stool E coli O157 PCR Not Reportable Stl Enterotoxigenic E PCR Not detected (Not Detect) Stool EPEC (PCR) Not detected (Not Detect) Stl E. histolytica PCR Not detected (Not Detect) Stool Giardia Lamblia PCR Not detected (Not Detect) Stool Sapovirus (PCR) Not detected (Not Detect) Stl P. shigelloides PCR Not detected (Not Detect) St Y.enterocolitica PCR Not detected (Not Detect) Stool Vibrio (PCR) Not detected (Not Detect) Stl Vibrio cholerae PCR Not detected (Not Detect) Stl Enteroaggr Ecoli PCR Not detected (Not Detect) Stl Norovirus GI/GII PCR Detected H (Not Detect) Campylobacter (PCR) Not detected (Not Detect) C. difficile Tox (PCR) Not detected (Not Detect) Salmonella (PCR) Not detected (Not Detect) Urine Dip Bedside Urine Glucose Negative Bedside Urine Bilirubin - Negative Bedside Urine Ketone - Negative Urine Specific [place] 1.025 Bedside Urine Occult Blood ++ Bedside Urine pH 6.0 Bedside Urine Protein + 30 Bedside Urine Urobilinogen - Negative Bedside Urine Nitrite - Negative Bedside Urine Leukocytes - Negative Esterase Imaging Data Renal US: Radiologist's Impression: PROCEDURE:? US RENAL COMPLETE ? INDICATIONS:? renal failure ? TECHNIQUE:? Real-time scanning was performed of the kidneys and bladder, with image documentation.? ? COMPARISON:? None. ? FINDINGS:? ? Kidneys:? Kidneys are normal in size.? Right kidney measures 10.7 cm long; left kidney measures 11.4 cm long.? Right renal cortical thickness is 2.0 cm; left renal cortical thickness is 2.0 cm.? Renal cortical echotexture is normal.? No hydronephrosis or nephrolithiasis.? No suspicious solid mass lesions.? ? Bladder:? Decompressed around a Cerrato catheter. ? Miscellaneous:? No free pelvic fluid.? Increased liver echogenicity, likely steatosis. ? IMPRESSION:? Urinary bladder is decompressed around a Cerrato catheter.? No hydronephrosis. ? ? Dictated by: Jayesh Riley M.D. on 06/03/2022 at 8:10 ?? CT scan - abdomen/pelvis: Radiologist's Impression: PROCEDURE:? CT KIDNEY URETER BLADDER (KUB) ? INDICATIONS:? vomiting/diarrhea, [place] ? TECHNIQUE:? Axial sections were acquired from the lung bases to the pubic symphysis.? Coronal and sagittal reformats were performed.? For radiation dose reduction, the following was used: ?automated exposure control, adjustment of mA and/or kV according to patient size.? ? COMPARISON:? [facility], CT, CT ABDOMEN PELVIS W CON, 03/03/2019, 0:01. ? FINDINGS:? Image quality:? Excellent.? ? Lung bases:? Unremarkable.? ? Heart:? No significant findings. ? URINARY: Right Kidney:? 4 mm nonobstructing lower pole stone.? No hydronephrosis.? Right Ureter:? No hydroureter.? ? Left Kidney: ? No stones or hydronephrosis. Left Ureter:? No hydroureter.? ? Bladder:? Normal wall thickness. No stones. ? ? ? ABDOMEN: Liver:? Mild diffuse hepatic steatosis.? No obvious masses.? ? Gallbladder:? Surgically absent. Biliary ducts:? Unremarkable.? ? Pancreas:? Unremarkable.? ? Spleen:? Unremarkable.? ? Adrenal Glands:? Unremarkable.? ? ? Stomach and Bowel:? The sigmoid colon is diffusely thickened.? It it is not well evaluated without oral and intravenous contrast.? There is a low-density structure subjacent to the sigmoid in the same location of what was previously likely an abscess in 2019. It is smaller, and measures approximately 3.6 x 1.9 cm.? It may potentially represent a chronic sterile abscess.? Peritoneum:? No abnormal intraperitoneal fluid.? No free air.? ? Ventral Wall: ? No hernia.? Abdominal Nodes:? No enlarged retroperitoneal or mesenteric lymph nodes.? Vessels:? Aorta and inferior vena cava are normal in size.? ? PELVIS: Pelvic Organs:? Unremarkable.? ? Pelvic Nodes: Unremarkable. Miscellaneous: No inguinal hernias are seen. ? ? ? Bones:? Decompressed by a Cerrato catheter. ? IMPRESSION:? ? 1. 4 mm nonobstructing renal stone on the right.? No hydronephrosis or hydroureter. ? 2. Chronic abnormal sigmoid colonic thickening.? ? 3. Question chronic abscess subjacent to the sigmoid. ? 4. Mild diffuse hepatic steatosis. ? Comment:? Consider repeat study with oral and IV contrast.? Additionally, recommend direct visualization of the sigmoid utilizing colonoscopy after acute symptomatology resolves, if this has not been performed in the recent past.? Dictated by: Esequiel Odom M.D. on 06/03/2022 at 9:05 ? ? MDM Narrative Medical decision making narrative: Patient is a 57-year-old male who presents with vomiting diarrhea ongoing for last 2 days. Unable to keep anything. He is found to be in acute kidney injury with a creatinine of 6.2 potassium 5.2 bicarb 14 BUN 60 which did improve with IV fluids his creatinine went 25.0 and bicarb 16. This is likely secondary to severe dehydration. CT does not show abnormality. [id number]-Dr. Stokes on-call nephrology updated on patient's symptoms and test results. He reports that there is no need to transfer patient just continue hydrating monitoring labs. If things change he is happy to have the patient be transferred. Patient signed out to Dr. Gisel Batres: 06/03/22: This is a 57-year-old male with history of hypertension and dyslipidemia who is had vomiting and diarrhea since Wednesday, patient states last episode of vomiting was here in the emergency department. He has tested positive for norovirus, he has not acute kidney injury with elevated BUN, patient's does have mild leukocytosis. He does not have significant electrolyte abnormalities. Urine does not show infection. Renal ultrasound was negative. Case was discussed with Nephrology patient had received 2 L of fluids creatinine had improved from 6-5. They recommend continuing fluids, no bicarb drip patient has had Zofran and Protonix as well. Dr. Schneider spoke with Dr. Peguero who asked for CT KUB and blood cultures to be sent as well as a dose of Zosyn call back w ith results and will likely admit here for fluids and monitoring of renal function. Patient was seen independently evaluated by myself. He is feeling somewhat improved currently. CT KUB shows a nonobstructing right renal stone, there is some thickening at the sigmoid that is smaller than it was in 2019 so could be a sterile abscess, I did discuss with patient should probably follow up and have this biopsied or evaluated by GI or General surgery with colonoscopy in the future to rule out malignancy. Patient accepted by Dr. Peguero for acute kidney injury with norovirus thickening of the sigmoid is less likely to be active abscess causing his symptoms today patient does not have abdominal pain and was seen on CT in 2019 and this smaller than prior. Dr. Peguero accepts for inpatient admission. <Wendy Batres, DO - Last Filed: 06/03/22 10:07> Lab Data Labs: Lab Results 06/03/22 06/03/22 06/03/22 Range/Units 02:40 02:40 02:40 WBC 15.0 H (4.5-11.0) X10^3/uL RBC 6.49 H (4.5-5.9) X10^6/uL Hgb 17.7 H (13.5-17.5) g/dL Hct 52.9 (41-53) % MCV 81.4 (80-100) fL MCH 27.2 (26-34) PG MCHC 33.4 (30-36) % RDW 14.7 (11.6-14.8) % Plt Count 288 (150-400) X10^3/uL Neut % (Auto) 81.2 H (50-75) % Lymph % (Auto) 11.3 L (25-40) % [place] % (Auto) 6.9 (3-14) % Eos % (Auto) 0.4 L (2-4) % Baso % (Auto) 0.2 (0-2) % Neut # (Auto) 39024 H (8441-7852) /uL Lymph # (Auto) 1700 (5399-3381) /uL [place] # (Auto) 1000 H (0-900) /uL Eos # (Auto) 100 (0-450) /uL Baso # (Auto) 0 (0-100) /uL Sodium 133 L (137-145) mmol/L Potassium 5.2 H (3.4-5.1) mmol/L Chloride 99 (98-107) mmol/L Carbon Dioxide 14 L (22-32) mmol/L BUN 62 H (9-20) mg/dL Creatinine 6.28 H (0.66-1.25) mg/dL Estimated GFR 10 L (>60) mL/min BUN/Creatinine Ratio 9.9 (6-22) Glucose 163 H (70-100) mg/dL Lactate 1.0 (0.7-2.1) mmol/L Calcium 9.8 (8.4-10.2) mg/dL Total Bilirubin 1.0 (0.2-1.3) mg/dL AST 29 (17-59) IU/L ALT 27 (<50) IU/L Alkaline Phosphatase 106 (38-126) U/L Total Protein 9.6 H (6.3-8.2) g/dL Albumin 5.0 (3.5-5.0) g/dL Globulin 4.6 H (1.7-4.1) g/dL Albumin/Globulin Ratio 1.1 (1.0-2.8) Lipase 307 H (23-300) U/L Urine Color Urine Appearance Urine pH (4.5-8.0) Ur Specific [place] (1.000-1.035) Urine Protein (Negative) Urine Glucose (UA) (Negative) g/dL Urine Ketones (NEGATIVE) Urine Occult Blood (Negative) Urine Nitrate (Negative) Urine Bilirubin (NEGATIVE) Urine Urobilinogen (0.2) E.U./dL Ur Leukocyte Esterase (NEGATIVE) Urine RBC (0-5/HPF) Urine WBC (0-5/HPF) Ur Squamous Epith Cells (0-5/HPF) Urine Bacteria (None) Hyaline Casts (None) Ur Culture Indicated? Ur Random Sodium (30-90) mmol/L Urine Creatinine mg/dL Stl C. cayetanensis PCR (Not Detect) Stool Rotavirus (PCR) (Not Detect) Stool Adenovirus (PCR) (Not Detect) Stool Astrovirus (PCR) (Not Detect) Stool Cryptosporidium PCR (Not Detect) Stl E.coli Shiga Tox PCR (Not Detect) St Sh/Enteroin Ecoli PCR (Not Detect) Stool E coli O157 PCR Stl Enterotoxigenic E PCR (Not Detect) Stool EPEC (PCR) (Not Detect) Stl E. histolytica PCR (Not Detect) Stool Giardia Lamblia PCR (Not Detect) Stool Sapovirus (PCR) (Not Detect) Stl P. shigelloides PCR (Not Detect) St Y.enterocolitica PCR (Not Detect) Stool Vibrio (PCR) (Not Detect) Stl Vibrio cholerae PCR (Not Detect) Stl Enteroaggr Ecoli PCR (Not Detect) Stl Norovirus GI/GII PCR (Not Detect) Campylobacter (PCR) (Not Detect) C. difficile Tox (PCR) (Not Detect) Salmonella (PCR) (Not Detect) 06/03/22 06/03/22 06/03/22 Range/Units 05:56 06:05 06:05 WBC (4.5-11.0) X10^3/uL RBC (4.5-5.9) X10^6/uL Hgb (13.5-17.5) g/dL Hct (41-53) % MCV (80-100) fL MCH (26-34) PG MCHC (30-36) % RDW (11.6-14.8) % Plt Count (150-400) X10^3/uL Neut % (Auto) (50-75) % Lymph % (Auto) (25-40) % [place] % (Auto) (3-14) % Eos % (Auto) (2-4) % Baso % (Auto) (0-2) % Neut # (Auto) (6597-1847) /uL Lymph # (Auto) (0587-5478) /uL [place] # (Auto) (0-900) /uL Eos # (Auto) (0-450) /uL Baso # (Auto) (0-100) /uL Sodium 136 L (137-145) mmol/L Potassium 5.0 (3.4-5.1) mmol/L Chloride 105 (98-107) mmol/L Carbon Dioxide 16 L (22-32) mmol/L BUN 60 H (9-20) mg/dL Creatinine 5.02 H (0.66-1.25) mg/dL Estimated GFR 13 L (>60) mL/min BUN/Creatinine Ratio 12.0 (6-22) Glucose 132 H (70-100) mg/dL Lactate (0.7-2.1) mmol/L Calcium 8.0 L (8.4-10.2) mg/dL Total Bilirubin (0.2-1.3) mg/dL AST (17-59) IU/L ALT (<50) IU/L Alkaline Phosphatase (38-126) U/L Total Protein (6.3-8.2) g/dL Albumin (3.5-5.0) g/dL Globulin (1.7-4.1) g/dL Albumin/Globulin Ratio (1.0-2.8) Lipase (23-300) U/L Urine Color Yellow Urine Appearance Clear Urine pH 5.0 (4.5-8.0) Ur Specific [place] 1.020 (1.000-1.035) Urine Protein 2+ H (Negative) Urine Glucose (UA) Negative (Negative) g/dL Urine Ketones Negative (NEGATIVE) Urine Occult Blood 2+ H (Negative) Urine Nitrate Negative (Negative) Urine Bilirubin Negative (NEGATIVE) Urine Urobilinogen 0.2 (0.2) E.U./dL Ur Leukocyte Esterase Negative (NEGATIVE) Urine RBC 5-10/hpf H (0-5/HPF) Urine WBC None seen (0-5/HPF) Ur Squamous Epith Cells 1-5 /hpf (0-5/HPF) Urine Bacteria None seen (None) Hyaline Casts 5-10/lpf (None) Ur Culture Indicated? Cult not indicated Ur Random Sodium 63 (30-90) mmol/L Urine Creatinine 150.4 mg/dL Stl C. cayetanensis PCR (Not Detect) Stool Rotavirus (PCR) (Not Detect) Stool Adenovirus (PCR) (Not Detect) Stool Astrovirus (PCR) (Not Detect) Stool Cryptosporidium PCR (Not Detect) Stl E.coli Shiga Tox PCR (Not Detect) St Sh/Enteroin Ecoli PCR (Not Detect) Stool E coli O157 PCR Stl Enterotoxigenic E PCR (Not Detect) Stool EPEC (PCR) (Not Detect) Stl E. histolytica PCR (Not Detect) Stool Giardia Lamblia PCR (Not Detect) Stool Sapovirus (PCR) (Not Detect) Stl P. shigelloides PCR (Not Detect) St Y.enterocolitica PCR (Not Detect) Stool Vibrio (PCR) (Not Detect) Stl Vibrio cholerae PCR (Not Detect) Stl Enteroaggr Ecoli PCR (Not Detect) Stl Norovirus GI/GII PCR (Not Detect) Campylobacter (PCR) (Not Detect) C. difficile Tox (PCR) (Not Detect) Salmonella (PCR) (Not Detect) 06/03/22 Range/Units 06:22 WBC (4.5-11.0) X10^3/uL RBC (4.5-5.9) X10^6/uL Hgb (13.5-17.5) g/dL Hct (41-53) % MCV (80-100) fL MCH (26-34) PG MCHC (30-36) % RDW (11.6-14.8) % Plt Count (150-400) X10^3/uL Neut % (Auto) (50-75) % Lymph % (Auto) (25-40) % [place] % (Auto) (3-14) % Eos % (Auto) (2-4) % Baso % (Auto) (0-2) % Neut # (Auto) (1443-5576) /uL Lymph # (Auto) (7941-4367) /uL [place] # (Auto) (0-900) /uL Eos # (Auto) (0-450) /uL Baso # (Auto) (0-100) /uL Sodium (137-145) mmol/L Potassium (3.4-5.1) mmol/L Chloride (98-107) mmol/L Carbon Dioxide (22-32) mmol/L BUN (9-20) mg/dL Creatinine (0.66-1.25) mg/dL Estimated GFR (>60) mL/min BUN/Creatinine Ratio (6-22) Glucose (70-100) mg/dL Lactate (0.7-2.1) mmol/L Calcium (8.4-10.2) mg/dL Total Bilirubin (0.2-1.3) mg/dL AST (17-59) IU/L ALT (<50) IU/L Alkaline Phosphatase (38-126) U/L Total Protein (6.3-8.2) g/dL Albumin (3.5-5.0) g/dL Globulin (1.7-4.1) g/dL Albumin/Globulin Ratio (1.0-2.8) Lipase (23-300) U/L Urine Color Urine Appearance Urine pH (4.5-8.0) Ur Specific [place] (1.000-1.035) Urine Protein (Negative) Urine Glucose (UA) (Negative) g/dL Urine Ketones (NEGATIVE) Urine Occult Blood (Negative) Urine Nitrate (Negative) Urine Bilirubin (NEGATIVE) Urine Urobilinogen (0.2) E.U./dL Ur Leukocyte Esterase (NEGATIVE) Urine RBC (0-5/HPF) Urine WBC (0-5/HPF) Ur Squamous Epith Cells (0-5/HPF) Urine Bacteria (None) Hyaline Casts (None) Ur Culture Indicated? Ur Random Sodium (30-90) mmol/L Urine Creatinine mg/dL Stl C. cayetanensis PCR Not detected (Not Detect) Stool Rotavirus (PCR) Not detected (Not Detect) Stool Adenovirus (PCR) Not detected (Not Detect) Stool Astrovirus (PCR) Not detected (Not Detect) Stool Cryptosporidium PCR Not detected (Not Detect) Stl E.coli Shiga Tox PCR Not detected (Not Detect) St Sh/Enteroin Ecoli PCR Not detected (Not Detect) Stool E coli O157 PCR Not Reportable Stl Enterotoxigenic E PCR Not detected (Not Detect) Stool EPEC (PCR) Not detected (Not Detect) Stl E. histolytica PCR Not detected (Not Detect) Stool Giardia Lamblia PCR Not detected (Not Detect) Stool Sapovirus (PCR) Not detected (Not Detect) Stl P. shigelloides PCR Not detected (Not Detect) St Y.enterocolitica PCR Not detected (Not Detect) Stool Vibrio (PCR) Not detected (Not Detect) Stl Vibrio cholerae PCR Not detected (Not Detect) Stl Enteroaggr Ecoli PCR Not detected (Not Detect) Stl Norovirus GI/GII PCR Detected H (Not Detect) Campylobacter (PCR) Not detected (Not Detect) C. difficile Tox (PCR) Not detected (Not Detect) Salmonella (PCR) Not detected (Not Detect) Urine Dip Bedside Urine Glucose Negative Bedside Urine Bilirubin - Negative Bedside Urine Ketone - Negative Urine Specific [place] 1.025 Bedside Urine Occult Blood ++ Bedside Urine pH 6.0 Bedside Urine Protein + 30 Bedside Urine Urobilinogen - Negative Bedside Urine Nitrite - Negative Bedside Urine Leukocytes - Negative Esterase MDM Narrative Medical decision making narrative: Mank: 06/03/22: This is a 57-year-old male with history of hypertension and dyslipidemia who is had vomiting and diarrhea since Wednesday, patient states last episode of vomiting was here in the emergency department. He has tested positive for norovirus, he has not acute kidney injury with elevated BUN, patient's does have mild leukocytosis. He does not have significant electrolyte abnormalities. Urine does not show infection. Renal ultrasound was negative. Case was discussed with Nephrology patient had received 2 L of fluids creatinine had improved from 6-5. They recommend continuing fluids, no bicarb drip patient has had Zofran and Protonix as well. Dr. Schneider spoke with Dr. Peguero who asked for CT KUB and blood cultures to be sent as well as a dose of Zosyn call back with results and will likely admit here for fluids and monitoring of renal function. Patient was seen independently evaluated by myself. He is feeling somewhat improved currently. CT KUB shows a nonobstructing right renal stone, there is some thickening at the sigmoid that is smaller than it was in 2019 so could be a sterile abscess, I did discuss with patient should probably follow up and have this biopsied or evaluated by GI or General surgery with colonoscopy in the future to rule out malignancy. Patient accepted by Dr. Pegueor for acute kidney injury with norovirus thickening of the sigmoid is less likely to be active abscess causing his symptoms today patient does not have abdominal pain and was seen on CT in 2019 and this smaller than prior. Dr. Peguero accepts for inpatient admission. Discharge Plan Departure Patient Disposition: Admitted As Inpatient Clinical Impression: Acute renal failure, Dehydration, Infection due to Norovirus species, Sigmoid thickening Admit Date/Time: 06/03/22 09:34 Admit Provider: Jorge Luis Peguero
[2022-06-03] MEDS: LACTATED RINGERS 1,000 ML 150 ML IV ×3 (05:43→19:22)
--- NOTE | 2022-06-03 05:47 | DI.US.S_ITS ---
PROCEDURE: US RENAL COMPLETE INDICATIONS: renal failure TECHNIQUE: Real-time scanning was performed of the kidneys and bladder, with image documentation. COMPARISON: None. FINDINGS: Kidneys: Kidneys are normal in size. Right kidney measures 10.7 cm long; left kidney measures 11.4 cm long. Right renal cortical thickness is 2.0 cm; left renal cortical thickness is 2.0 cm. Renal cortical echotexture is normal. No hydronephrosis or nephrolithiasis. No suspicious solid mass lesions. Bladder: Decompressed around a Cerrato catheter. Miscellaneous: No free pelvic fluid. Increased liver echogenicity, likely steatosis. IMPRESSION: Urinary bladder is decompressed around a Cerrato catheter. No hydronephrosis. Dictated by: Jayesh Riley M.D. on 06/03/2022 at 8:10 Approved by: Jayesh Riley M.D. on 06/03/2022 at 8:15
[2022-06-03] MEDS: PANTOPRAZOLE 40 MG VIAL IV (06:47)
[2022-06-03] MEDS: LIDOCAINE 2% (GLYDO) 6 ML GEL TOP (06:48)
[2022-06-03 06:53] LABS: Blood Urea Nitrogen 60 mg/dL (9-20); Carbon Dioxide 16 mmol/L (22-32); Chloride 105 mmol/L (98-107); Estimated Glomerular Filt Rate 13 mL/min (>60); Glucose 132 mg/dL (70-100); HEMOLYSIS < 15 (0-50); Sodium 136 mmol/L (137-145)
[2022-06-03 06:55] LABS: Creatinine Urine Random 150.4 mg/dL; Sodium Urine Random 63 mmol/L (30-90)
[2022-06-03 08:46] LABS: Adenovirus F 40/41 Not Detected (Not Detect); Astrovirus Not Detected (Not Detect); Campylobacter Not Detected (Not Detect); Clostridium difficile toxin AB Not Detected (Not Detect); Cryptosporidium Not Detected (Not Detect); Cyclospora cayetanensis Not Detected (Not Detect); Entamoeba histolytica Not Detected (Not Detect); Enteroaggregative E.coli Not Detected (Not Detect); Enteropathogenic E.coli Not Detected (Not Detect); Enterotoxigenic E.coli It/st Not Detected (Not Detect); Giardia lamblia Not Detected (Not Detect); Norovirus GI/GII Detected (Not Detect); Plesiomonsa shigelloides Not Detected (Not Detect); Rotavirus A Not Detected (Not Detect); Salmonella Not Detected (Not Detect); Sapovirus Not Detected (Not Detect); Shiga-like toxin-prod E.coli Not Detected (Not Detect); Shigella/Enteroinvasive E.coli Not Detected (Not Detect); Vibrio Not Detected (Not Detect); Vibrio cholerae Not Detected (Not Detect); Yersinia enterocolitica Not Detected (Not Detect)
--- NOTE | 2022-06-03 08:46 | DI.CT.S_ITS ---
PROCEDURE: CT KIDNEY URETER BLADDER (KUB) INDICATIONS: vomiting/diarrhea, [place] TECHNIQUE: Axial sections were acquired from the lung bases to the pubic symphysis. Coronal and sagittal reformats were performed. For radiation dose reduction, the following was used: automated exposure control, adjustment of mA and/or kV according to patient size. COMPARISON: [facility], CT, CT ABDOMEN PELVIS W CON, 03/03/2019, 0:01. FINDINGS: Image quality: Excellent. Lung bases: Unremarkable. Heart: No significant findings. URINARY: Right Kidney: 4 mm nonobstructing lower pole stone. No hydronephrosis. Right Ureter: No hydroureter. Left Kidney: No stones or hydronephrosis. Left Ureter: No hydroureter. Bladder: Normal wall thickness. No stones. ABDOMEN: Liver: Mild diffuse hepatic steatosis. No obvious masses. Gallbladder: Surgically absent. Biliary ducts: Unremarkable. Pancreas: Unremarkable. Spleen: Unremarkable. Adrenal Glands: Unremarkable. Stomach and Bowel: The sigmoid colon is diffusely thickened. It it is not well evaluated without oral and intravenous contrast. There is a low-density structure subjacent to the sigmoid in the same location of what was previously likely an abscess in 2019. It is smaller, and measures approximately 3.6 x 1.9 cm. It may potentially represent a chronic sterile abscess. Peritoneum: No abnormal intraperitoneal fluid. No free air. Ventral Wall: No hernia. Abdominal Nodes: No enlarged retroperitoneal or mesenteric lymph nodes. Vessels: Aorta and inferior vena cava are normal in size. PELVIS: Pelvic Organs: Unremarkable. Pelvic Nodes: Unremarkable. Miscellaneous: No inguinal hernias are seen. Bones: Decompressed by a Cerrato catheter. IMPRESSION: 1. 4 mm nonobstructing renal stone on the right. No hydronephrosis or hydroureter. 2. Chronic abnormal sigmoid colonic thickening. 3. Question chronic abscess subjacent to the sigmoid. 4. Mild diffuse hepatic steatosis. Comment: Consider repeat study with oral and IV contrast. Additionally, recommend direct visualization of the sigmoid utilizing colonoscopy after acute symptomatology resolves, if this has not been performed in the recent past. Dictated by: Esequiel Odom M.D. on 06/03/2022 at 9:05 Approved by: Esequiel Odom M.D. on 06/03/2022 at 9:12
[2022-06-03] MEDS: PIPERACILLIN/TAZO 4.5 GM in SODIUM CHLORIDE 0.9% 100 ML IV (09:13)
[2022-06-03 09:59] LABS: Appearance Urine UA CLEAR; Bilirubin Urine UA NEGATIVE (NEGATIVE); Color Urine UA YELLOW; Glucose Urine UA NEGATIVE (Negative); Ketones Urine UA NEGATIVE (NEGATIVE); Leukocyte Esterase Urine UA NEGATIVE (NEGATIVE); Nitrite Urine UA NEGATIVE (Negative); Occult Blood Urine UA 2+ (Negative); Protein Urine UA 2+ (Negative); Urobilinogen Urine UA 0.2 E.U./dL (0.2)
[2022-06-03 10:06] LABS: Bacteria Urine None Seen; Culture Indicated Urine Cult Not Indicated; Hyaline Casts Urine 5-10/LPF; RBC Urine 5-10/HPF (0-5/HPF); Squamous Epithelial Cell Urine 1-5 /HPF (0-5/HPF); WBC Urine None Seen (0-5/HPF)
--- NOTE | 2022-06-03 13:43 | PM.HP.1 ---
History of Present Illness History of Present Illness Date Patient Seen: 06/03/22 Time Patient Seen: 13:15 Chief complaint: throwing up and pooping green Narrative: 57-year-old male with hypertension, hyperlipidemia, history of kidney stones presented to ED with complaints of frequent vomiting and diarrhea. Symptoms started 2 days ago. He has not had recent travel. He denies hematemesis, melena or red blood per rectum. He was having significant lower abdominal cramping as well. He was noted to be in acute renal failure with a creatinine of 6.28. His stool PCR came back positive for norovirus. Renal ultrasound was unremarkable. Abdominal CT showed an old likely sterile sigmoid abscess likely related to diverticular disease. There was no evidence of acute diverticulitis. Also showed a nonobstructing 4 mm right kidney stone. He denies fevers or chills. Patient History Medical History (Updated 06/03/22 @ 09:31 by Wendy Batres DO) Kidney stones Family & Social History Social History: household members family Prior Living Arrangements House Safety & Behavioral: Feels Safe in Current Yes Environment Been Physically Hurt or No Threatened By a Person Tobacco & Substance use: Tobacco type cigarettes Smoking Status Current every day smoker alcohol intake current alcohol intake frequency 0-2 drinks per day Substance Use Type marijuana Meds Home Medications and Allergies Home Medications Medication Instructions Recorded Confirmed Type gemfibrozil 600 mg tablet 600 mg PO DAILY 06/03/22 06/03/22 History lisinopril 10 mg tablet 10 mg PO DAILY 06/03/22 06/03/22 History Allergies Allergy/AdvReac Type Severity Reaction Status Date / Time INGREDIENT: NO KNOWN - NO Allergy Unknown Uncoded 06/30/17 12:32 KNOWN DRUG ALLERGY Review of Systems Review of Systems Narrative: Complete 10 point ROS otherwise negative. Exam Vital Signs (past 8 hours): - 06/03/22 06:00 06/03/22 06:00 06/03/22 06:30 Pulse Rate 82 Blood Pressure 119/72 112/76 Pulse Oximetry 96 06/03/22 06:30 06/03/22 06:54 06/03/22 06:54 Pulse Rate 79 81 Blood Pressure 118/77 Pulse Oximetry 96 98 06/03/22 07:00 06/03/22 07:00 06/03/22 07:30 Pulse Rate 79 Blood Pressure 116/76 113/72 Pulse Oximetry 97 03/15/23 07:30 06/03/22 08:00 06/03/22 08:00 Pulse Rate 86 81 Blood Pressure 100/64 Pulse Oximetry 98 98 06/03/22 08:30 06/03/22 08:30 06/03/22 08:55 Pulse Rate 74 74 Blood Pressure 104/60 Pulse Oximetry 99 97 06/03/22 08:55 06/03/22 09:00 06/03/22 09:00 Pulse Rate 73 Blood Pressure 111/74 112/77 Pulse Oximetry 97 06/03/22 09:30 06/03/22 09:30 06/03/22 10:00 Pulse Rate 69 Blood Pressure 104/65 119/69 Pulse Oximetry 98 06/03/22 10:00 06/03/22 10:30 06/03/22 10:30 Pulse Rate 69 76 Blood Pressure 120/69 Pulse Oximetry 98 99 06/03/22 11:00 06/03/22 11:00 06/03/22 11:30 Pulse Rate 67 Blood Pressure 114/69 119/58 L Pulse Oximetry 98 06/03/22 11:30 06/03/22 12:00 06/03/22 12:00 Pulse Rate 79 70 Blood Pressure 113/73 Pulse Oximetry 99 98 Oxygen Delivery Method Room Air Narrative Exam Narrative: General: Alert, well-developed and well-nourished male in no acute distress HEENT: Anicteric, PERRLA, oropharynx dry Neck: No lymphadenopathy Lungs: Clear to auscultation Heart: Normal S1 and S2, regular rate and rhythm, no murmur Abdomen: Flat, nontender, no HSM Extremities: No edema Neurological: Affect normal, speech normal, nonfocal Objective Labs 06/03/22 02:40 06/03/22 05:56 Labs: Laboratory Results - last 24 hr 06/03/22 06/03/22 06/03/22 02:40 02:40 02:40 WBC 15.0 H RBC 6.49 H Hgb 17.7 H Hct 52.9 MCV 81.4 MCH 27.2 MCHC 33.4 RDW 14.7 Plt Count 288 Neut % (Auto) 81.2 H Lymph % (Auto) 11.3 L [place] % (Auto) 6.9 Eos % (Auto) 0.4 L Baso % (Auto) 0.2 Neut # (Auto) 96150 H Lymph # (Auto) 1700 [place] # (Auto) 1000 H Eos # (Auto) 100 Baso # (Auto) 0 Sodium 133 L Potassium 5.2 H Chloride 99 Carbon Dioxide 14 L BUN 62 H Creatinine 6.28 H Estimated GFR 10 L BUN/Creatinine Ratio 9.9 Glucose 163 H Lactate 1.0 Calcium 9.8 Total Bilirubin 1.0 AST 29 ALT 27 Alkaline Phosphatase 106 Total Protein 9.6 H Albumin 5.0 Globulin 4.6 H Albumin/Globulin Ratio 1.1 Lipase 307 H Urine Color Urine Appearance Urine pH Ur Specific [place] Urine Protein Urine Glucose (UA) Urine Ketones Urine Occult Blood Urine Nitrate Urine Bilirubin Urine Urobilinogen Ur Leukocyte Esterase Urine RBC Urine WBC Ur Squamous Epith Cells Urine Bacteria Hyaline Casts Ur Culture Indicated? Ur Random Sodium Urine Creatinine Stl C. cayetanensis PCR Stool Rotavirus (PCR) Stool Adenovirus (PCR) Stool Astrovirus (PCR) Stool Cryptosporidium PCR Stl E.coli Shiga Tox PCR St Sh/Enteroin Ecoli PCR Stool E coli O157 PCR Stl Enterotoxigenic E PCR Stool EPEC (PCR) Stl E. histolytica PCR Stool Giardia Lamblia PCR Stool Sapovirus (PCR) Stl P. shigelloides PCR St Y.enterocolitica PCR Stool Vibrio (PCR) Stl Vibrio cholerae PCR Stl Enteroaggr Ecoli PCR Stl Norovirus GI/GII PCR Campylobacter (PCR) C. difficile Tox (PCR) Salmonella (PCR) 06/03/22 06/03/22 06/03/22 05:56 06:05 06:05 WBC RBC Hgb Hct MCV MCH MCHC RDW Plt Count Neut % (Auto) Lymph % (Auto) [place] % (Auto) Eos % (Auto) Baso % (Auto) Neut # (Auto) Lymph # (Auto) [place] # (Auto) Eos # (Auto) Baso # (Auto) Sodium 136 L Potassium 5.0 Chloride 105 Carbon Dioxide 16 L BUN 60 H Creatinine 5.02 H Estimated GFR 13 L BUN/Creatinine Ratio 12.0 Glucose 132 H Lactate Calcium 8.0 L Total Bilirubin AST ALT Alkaline Phosphatase Total Protein Albumin Globulin Albumin/Globulin Ratio Lipase Urine Color Yellow Urine Appearance Clear Urine pH 5.0 Ur Specific [place] 1.020 Urine Protein 2+ H Urine Glucose (UA) Negative Urine Ketones Negative Urine Occult Blood 2+ H Urine Nitrate Negative Urine Bilirubin Negative Urine Urobilinogen 0.2 Ur Leukocyte Esterase Negative Urine RBC 5-10/hpf H Urine WBC None seen Ur Squamous Epith Cells 1-5 /hpf Urine Bacteria None seen Hyaline Casts 5-10/lpf Ur Culture Indicated? Cult not indicated Ur Random Sodium 63 Urine Creatinine 150.4 Stl C. cayetanensis PCR Stool Rotavirus (PCR) Stool Adenovirus (PCR) Stool Astrovirus (PCR) Stool Cryptosporidium PCR Stl E.coli Shiga Tox PCR St Sh/Enteroin Ecoli PCR Stool E coli O157 PCR Stl Enterotoxigenic E PCR Stool EPEC (PCR) Stl E. histolytica PCR Stool Giardia Lamblia PCR Stool Sapovirus (PCR) Stl P. shigelloides PCR St Y.enterocolitica PCR Stool Vibrio (PCR) Stl Vibrio cholerae PCR Stl Enteroaggr Ecoli PCR Stl Norovirus GI/GII PCR Campylobacter (PCR) C. difficile Tox (PCR) Salmonella (PCR) 06/03/22 06:22 WBC RBC Hgb Hct MCV MCH MCHC RDW Plt Count Neut % (Auto) Lymph % (Auto) [place] % (Auto) Eos % (Auto) Baso % (Auto) Neut # (Auto) Lymph # (Auto) [place] # (Auto) Eos # (Auto) Baso # (Auto) Sodium Potassium Chloride Carbon Dioxide BUN Creatinine Estimated GFR BUN/Creatinine Ratio Glucose Lactate Calcium Total Bilirubin AST ALT Alkaline Phosphatase Total Protein Albumin Globulin Albumin/Globulin Ratio Lipase Urine Color Urine Appearance Urine pH Ur Specific [place] Urine Protein Urine Glucose (UA) Urine Ketones Urine Occult Blood Urine Nitrate Urine Bilirubin Urine Urobilinogen Ur Leukocyte Esterase Urine RBC Urine WBC Ur Squamous Epith Cells Urine Bacteria Hyaline Casts Ur Culture Indicated? Ur Random Sodium Urine Creatinine Stl C. cayetanensis PCR Not detected Stool Rotavirus (PCR) Not detected Stool Adenovirus (PCR) Not detected Stool Astrovirus (PCR) Not detected Stool Cryptosporidium PCR Not detected Stl E.coli Shiga Tox PCR Not detected St Sh/Enteroin Ecoli PCR Not detected Stool E coli O157 PCR Not Reportable Stl Enterotoxigenic E PCR Not detected Stool EPEC (PCR) Not detected Stl E. histolytica PCR Not detected Stool Giardia [place]lia PCR Not detected Stool Sapovirus (PCR) Not detected Stl P. shigelloides PCR Not detected St Y.enterocolitica PCR Not detected Stool Vibrio (PCR) Not detected Stl Vibrio cholerae PCR Not detected Stl Enteroaggr Ecoli PCR Not detected Stl Norovirus GI/GII PCR Detected H Campylobacter (PCR) Not detected C. difficile Tox (PCR) Not detected Salmonella (PCR) Not detected Assessment & Plan Assessment & Plan narrative: 1. Acute kidney injury secondary to norovirus gastroenteritis -likely prerenal inpatient without prior renal disease, patient is making urine with IV fluids -received 3 L LR in ED -maintain LR 150 cc/hour -repeat renal function labs in a.m. -likely home tomorrow if renal function improving and able to maintain adequate oral fluid intake 2. Acute norovirus gastroenteritis -patient with improving vomiting and diarrhea overnight -continue IV hydration -IV/sublingual ondansetron as needed 3. Hypertension, hyperlipidemia -hold lisinopril and gemfibrozil 4. Sterile sigmoid abscess secondary to diverticular disease -this was incidentally noted on CT and smaller in size relative to CT in 2019 Code status: Full code DVT prophylaxis: SCDs Time Spent With Patient Critical Care time: I spent a total of [] minutes of critical care time on this patient's care today; this time is exclusive of procedural time. Quality VTE Deep Vein Thrombosis/Pulmonary Embolism Present on Admission: No
[2022-06-03 14:01] LABS: COVID19 -Nasal RAPID Negative (Negative)
[2022-06-04] MEDS: LACTATED RINGERS 1,000 ML 150 ML IV (01:58)
[2022-06-04 05:57] VITALS: BP 106/56; PULSE 57; RESP 18; TEMP 36.9; O2SAT 96
[2022-06-04 06:00] LABS: Add Manual Diff / Slide Review NO; Basophils Absolute Auto 0 /uL (0-100); Basophils Percent Auto 0.4 % (0-2); Eosinophils Absolute Auto 200 /uL (0-450); Hematocrit 41.4 % (41-53); Hemoglobin 13.9 g/dL (13.5-17.5); Lymphocytes Absolute Auto 2400 /uL (1100-4500); Lymphocytes Percent Auto 30.3 % (25-40); Mean Corpuscular HGB Conc 33.5 % (30-36); Mean Corpuscular Hemoglobin 27.4 PG (26-34); Mean Corpuscular Volume 81.8 fL (80-100); Monocytes Absolute Auto 900 /uL (0-900); Monocytes Percent Auto 10.7 % (3-14); Neutrophils Absolute Auto 4400 /uL (1500-7000); Neutrophils Percent Auto 55.6 % (50-75); Platelet Count 197 X10^3/uL (150-400); Red Blood Cell Count 5.05 X10^6/uL (4.5-5.9); Red Cell Distribution Width 14.5 % (11.6-14.8)
[2022-06-04 06:09] LABS: BUN Creatinine Ratio 26.3 (6-22); Blood Urea Nitrogen 46 mg/dL (9-20); Calcium 8.4 mg/dL (8.4-10.2); Carbon Dioxide 20 mmol/L (22-32); Chloride 108 mmol/L (98-107); Estimated Glomerular Filt Rate 44 mL/min (>60); Glucose 101 mg/dL (70-100); HEMOLYSIS < 15 (0-50); Potassium 4.6 mmol/L (3.4-5.1); Sodium 136 mmol/L (137-145)
--- NOTE | 2022-06-04 07:15 | PM.PN.1 ---
Subjective Subjective Interval history: Feeling better, improved diarrhea Exam Vital Signs (past 8 hours): - 06/04/22 05:57 Temperature 98.5 F Pulse Rate 57 L Respiratory Rate 18 Blood Pressure 106/56 L Pulse Oximetry 96 Oxygen Flow Rate 0 Oxygen Delivery Method Room Air Oxygen Flow Rate 0 Narrative Exam Narrative: General: Alert, well-developed and well-nourished male in no acute distress HEENT: Anicteric, PERRLA, oropharynx dry Neck: No lymphadenopathy Lungs: Clear to auscultation Heart: Normal S1 and S2, regular rate and rhythm, no murmur Abdomen: Flat, nontender, no HSM Extremities: No edema Neurological: Affect normal, speech normal, nonfocal Objective Labs 06/04/22 05:46 06/04/22 05:46 Labs: Laboratory Results - last 24 hr 06/03/22 06/03/22 06/03/22 06:05 06:22 13:26 WBC RBC Hgb Hct MCV MCH MCHC RDW Plt Count Neut % (Auto) Lymph % (Auto) [place] % (Auto) Eos % (Auto) Baso % (Auto) Neut # (Auto) Lymph # (Auto) [place] # (Auto) Eos # (Auto) Baso # (Auto) Sodium Potassium Chloride Carbon Dioxide BUN Creatinine Estimated GFR BUN/Creatinine Ratio Glucose Calcium Urine Color Yellow Urine Appearance Clear Urine pH 5.0 Ur Specific [place] 1.020 Urine Protein 2+ H Urine Glucose (UA) Negative Urine Ketones Negative Urine Occult Blood 2+ H Urine Nitrate Negative Urine Bilirubin Negative Urine Urobilinogen 0.2 Ur Leukocyte Esterase Negative Urine RBC 5-10/hpf H Urine WBC None seen Ur Squamous Epith Cells 1-5 /hpf Urine Bacteria None seen Hyaline Casts 5-10/lpf Ur Culture Indicated? Cult not indicated Stl C. cayetanensis PCR Not detected Stool Rotavirus (PCR) Not detected Stool Adenovirus (PCR) Not detected Stool Astrovirus (PCR) Not detected Stool Cryptosporidium PCR Not detected Stl E.coli Shiga Tox PCR Not detected St Sh/Enteroin Ecoli PCR Not detected Stool E coli O157 PCR Not Reportable Stl Enterotoxigenic E PCR Not detected Stool EPEC (PCR) Not detected Stl E. histolytica PCR Not detected Stool Giardia Lamblia PCR Not detected Stool Sapovirus (PCR) Not detected Stl P. shigelloides PCR Not detected St Y.enterocolitica PCR Not detected Stool Vibrio (PCR) Not detected Stl Vibrio cholerae PCR Not detected Stl Enteroaggr Ecoli PCR Not detected Stl Norovirus GI/GII PCR Detected H Campylobacter (PCR) Not detected C. difficile Tox (PCR) Not detected SARS-CoV-2 (PCR) Negative Salmonella (PCR) Not detected 06/04/22 06/04/22 05:46 05:46 WBC 8.0 RBC 5.05 Hgb 13.9 Hct 41.4 MCV 81.8 MCH 27.4 MCHC 33.5 RDW 14.5 Plt Count 197 Neut % (Auto) 55.6 D Lymph % (Auto) 30.3 [place] % (Auto) 10.7 Eos % (Auto) 3.0 Baso % (Auto) 0.4 Neut # (Auto) 4400 Lymph # (Auto) 2400 [place] # (Auto) 900 Eos # (Auto) 200 Baso # (Auto) 0 Sodium 136 L Potassium 4.6 Chloride 108 H Carbon Dioxide 20 L BUN 46 H Creatinine 1.75 H Estimated GFR 44 L BUN/Creatinine Ratio 26.3 H Glucose 101 H Calcium 8.4 Urine Color Urine Appearance Urine pH Ur Specific [place] Urine Protein Urine Glucose (UA) Urine Ketones Urine Occult Blood Urine Nitrate Urine Bilirubin Urine Urobilinogen Ur Leukocyte Esterase Urine RBC Urine WBC Ur Squamous Epith Cells Urine Bacteria Hyaline Casts Ur Culture Indicated? Stl C. cayetanensis PCR Stool Rotavirus (PCR) Stool Adenovirus (PCR) Stool Astrovirus (PCR) Stool Cryptosporidium PCR Stl E.coli Shiga Tox PCR St Sh/Enteroin Ecoli PCR Stool E coli O157 PCR Stl Enterotoxigenic E PCR Stool EPEC (PCR) Stl E. histolytica PCR Stool Giardia Lamblia PCR Stool Sapovirus (PCR) Stl P. shigelloides PCR St Y.enterocolitica PCR Stool Vibrio (PCR) Stl Vibrio cholerae PCR Stl Enteroaggr Ecoli PCR Stl Norovirus GI/GII PCR Campylobacter (PCR) C. difficile Tox (PCR) SARS-CoV-2 (PCR) Salmonella (PCR) [facility] Medical History Kidney stones Social History household members: family Smoking Status: Current every day smoker alcohol intake: current Assessment & Plan Assessment & Plan narrative: 1. Acute kidney injury secondary to norovirus gastroenteritis -likely prerenal inpatient without prior renal disease, patient is making urine with IV fluids -received 3 L LR in ED -maintain LR 150 cc/hour -repeat renal function labs in a.m. -likely home tomorrow if renal function improving and able to maintain adequate oral fluid intake 2. Acute norovirus gastroenteritis -patient with improving vomiting and diarrhea overnight -continue IV hydration -IV/sublingual ondansetron as needed 3. Hypertension, hyperlipidemia -hold lisinopril and gemfibrozil 4. Sterile sigmoid abscess secondary to diverticular disease -this was incidentally noted on CT and smaller in size relative to CT in 2019 Code status: Full code DVT prophylaxis: SCDs Quality VTE Deep Vein Thrombosis/Pulmonary Embolism Present on Admission: No
[2022-06-04 08:15] VITALS: BP 127/79; PULSE 59; RESP 18; TEMP 36.4; O2SAT 98
--- NOTE | 2022-06-04 08:42 | P.DS_ITS ---
History of Present Illness History of Present Illness Date Patient Seen: 06/03/22 Time Patient Seen: 13:15 Chief complaint: throwing up and pooping green Narrative: 57-year-old male with hypertension, hyperlipidemia, history of kidney stones presented to ED with complaints of frequent vomiting and diarrhea. Symptoms started 2 days ago. He has not had recent travel. He denies hematemesis, melena or red blood per rectum. He was having significant lower abdominal cramping as well. He was noted to be in acute renal failure with a creatinine of 6.28. His stool PCR came back positive for norovirus. Renal ultrasound was unremarkable. Abdominal CT showed an old likely sterile sigmoid abscess likely related to diverticular disease. There was no evidence of acute diverticulitis. Also showed a nonobstructing 4 mm right kidney stone. He denies fevers or chills. Discharge Providers Provider Date of admission: 06/03/22 09:34 Discharge Date: 06/04/22 Primary care physician: PCP within 1 week Discharge provider: Demar Amaral MD Summary Hospital Course Discharge Diagnosis: Norovirus diarrhea Volume depletion Hospital Course: Patient was admitted with diarrhea and volume depletion. He was treated symptomatically with antiemetics, and IV fluids. He symptomatically improved and was able to tolerate a diet on the day of discharge. He was in agreement with discharge home. Status at Discharge Cognitive/behavioral status at discharge: oriented Functional status at discharge: independent ambulation Overall status at discharge: patient is back to baseline Time Spent with Patient Time spent: Greater than 30 minutes Exam Vital Signs (past 8 hours): - 06/04/22 05:57 06/04/22 08:15 Temperature 98.5 F 97.5 F L Pulse Rate 57 L 59 L Respiratory Rate 18 18 Blood Pressure 106/56 L 127/79 Pulse Oximetry 96 98 Oxygen Flow Rate 0 0 Oxygen Delivery Method Room Air Oxygen Flow Rate 0 Narrative Exam Narrative: General: Alert, well-developed and well-nourished male in no acute distress HEENT: Anicteric, PERRLA, oropharynx dry Neck: No lymphadenopathy Lungs: Clear to auscultation Heart: Normal S1 and S2, regular rate and rhythm, no murmur Abdomen: Flat, nontender, no HSM Extremities: No edema Neurological: Affect normal, speech normal, nonfocal Objective Labs 06/04/22 05:46 06/04/22 05:46 Labs: Laboratory Results - last 24 hr 06/03/22 06/03/22 06/03/22 06:05 06:22 13:26 WBC RBC Hgb Hct MCV MCH MCHC RDW Plt Count Neut % (Auto) Lymph % (Auto) [place] % (Auto) Eos % (Auto) Baso % (Auto) Neut # (Auto) Lymph # (Auto) [place] # (Auto) Eos # (Auto) Baso # (Auto) Sodium Potassium Chloride Carbon Dioxide BUN Creatinine Estimated GFR BUN/Creatinine Ratio Glucose Calcium Urine Color Yellow Urine Appearance Clear Urine pH 5.0 Ur Specific [place] 1.020 Urine Protein 2+ H Urine Glucose (UA) Negative Urine Ketones Negative Urine Occult Blood 2+ H Urine Nitrate Negative Urine Bilirubin Negative Urine Urobilinogen 0.2 Ur Leukocyte Esterase Negative Urine RBC 5-10/hpf H Urine WBC None seen Ur Squamous Epith Cells 1-5 /hpf Urine Bacteria None seen Hyaline Casts 5-10/lpf Ur Culture Indicated? Cult not indicated Stl C. cayetanensis PCR Not detected Stool Rotavirus (PCR) Not detected Stool Adenovirus (PCR) Not detected Stool Astrovirus (PCR) Not detected Stool Cryptosporidium PCR Not detected Stl E.coli Shiga Tox PCR Not detected St Sh/Enteroin Ecoli PCR Not detected Stool E coli O157 PCR Not Reportable Stl Enterotoxigenic E PCR Not detected Stool EPEC (PCR) Not detected Stl E. histolytica PCR Not detected Stool Giardia Lamblia PCR Not detected Stool Sapovirus (PCR) Not detected Stl P. shigelloides PCR Not detected St Y.enterocolitica PCR Not detected Stool Vibrio (PCR) Not detected Stl Vibrio cholerae PCR Not detected Stl Enteroaggr Ecoli PCR Not detected Stl Norovirus GI/GII PCR Detected H Campylobacter (PCR) Not detected C. difficile Tox (PCR) Not detected SARS-CoV-2 (PCR) Negative Salmonella (PCR) Not detected 06/04/22 06/04/22 05:46 05:46 WBC 8.0 RBC 5.05 Hgb 13.9 Hct 41.4 MCV 81.8 MCH 27.4 MCHC 33.5 RDW 14.5 Plt Count 197 Neut % (Auto) 55.6 D Lymph % (Auto) 30.3 [place] % (Auto) 10.7 Eos % (Auto) 3.0 Baso % (Auto) 0.4 Neut # (Auto) 4400 Lymph # (Auto) 2400 [place] # (Auto) 900 Eos # (Auto) 200 Baso # (Auto) 0 Sodium 136 L Potassium 4.6 Chloride 108 H Carbon Dioxide 20 L BUN 46 H Creatinine 1.75 H Estimated GFR 44 L BUN/Creatinine Ratio 26.3 H Glucose 101 H Calcium 8.4 Urine Color Urine Appearance Urine pH Ur Specific [place] Urine Protein Urine Glucose (UA) Urine Ketones Urine Occult Blood Urine Nitrate Urine Bilirubin Urine Urobilinogen Ur Leukocyte Esterase Urine RBC Urine WBC Ur Squamous Epith Cells Urine Bacteria Hyaline Casts Ur Culture Indicated? Stl C. cayetanensis PCR Stool Rotavirus (PCR) Stool Adenovirus (PCR) Stool Astrovirus (PCR) Stool Cryptosporidium PCR Stl E.coli Shiga Tox PCR St Sh/Enteroin Ecoli PCR Stool E coli O157 PCR Stl Enterotoxigenic E PCR Stool EPEC (PCR) Stl E. histolytica PCR Stool Giardia Lamblia PCR Stool Sapovirus (PCR) Stl P. shigelloides PCR St Y.enterocolitica PCR Stool Vibrio (PCR) Stl Vibrio cholerae PCR Stl Enteroaggr Ecoli PCR Stl Norovirus GI/GII PCR Campylobacter (PCR) C. difficile Tox (PCR) SARS-CoV-2 (PCR) Salmonella (PCR) [facility] Medical History Kidney stones Social History household members: family Smoking Status: Current every day smoker alcohol intake: current Discharge Assessment & Plan Assessment and Plan Assessment: 1. Acute kidney injury secondary to norovirus gastroenteritis, improved. -likely prerenal inpatient without prior renal disease, patient is making urine with IV fluids -received 3 L LR in ED -maintain LR 150 cc/hour -repeat renal function labs in a.m. 2. Acute norovirus gastroenteritis, improved. -patient with improving vomiting and diarrhea overnight -continue IV hydration -IV/sublingual ondansetron as needed 3.? Hypertension, hyperlipidemia. Stable. -hold lisinopril and gemfibrozil 4. Sterile sigmoid abscess secondary to diverticular disease, stable. -this was incidentally noted on CT and smaller in size relative to CT in 2019 Plan of Treatment: Discharge home. Discharge Plan Discharge Plan Patient Disposition: Home Provider Discharge Comment: Take plenty of fluids. Discharge orders & Medications Prescriptions: Continued gemfibrozil 600 mg tablet 600 mg PO DAILY lisinopril 10 mg tablet 10 mg PO DAILY Medication counseling provided by Pharmacist: No Follow up/Referrals: Doctor Mata MD [Primary Care Provider] - 1 Week (scchedule a follow up with your physician surgeon for in 1 week from discharge ) Discharge Health Status Multidrug resistant organism: No MDRO Diet/Activity/Treatments Diet: Diet as Tolerated Activity: As tolerated. Skin/Wound/Dressing Care Report to your healthcare provider any signs of infection, such as:: chills, fever, night sweats and increased pain Visit Report/Discharge Packet Stand Alone Forms: Patient Portal/API Discharge Data Primary Care Provider: Doctor Adolfo Quality VTE Deep Vein Thrombosis/Pulmonary Embolism Present on Admission: No
--- NOTE | 2022-06-04 09:18 | PM.DS.1 ---
History of Present Illness History of Present Illness Date Patient Seen: 06/03/22 Time Patient Seen: 13:15 Chief complaint: throwing up and pooping green Narrative: 57-year-old male with hypertension, hyperlipidemia, history of kidney stones presented to ED with complaints of frequent vomiting and diarrhea. Symptoms started 2 days ago. He has not had recent travel. He denies hematemesis, melena or red blood per rectum. He was having significant lower abdominal cramping as well. He was noted to be in acute renal failure with a creatinine of 6.28. His stool PCR came back positive for norovirus. Renal ultrasound was unremarkable. Abdominal CT showed an old likely sterile sigmoid abscess likely related to diverticular disease. There was no evidence of acute diverticulitis. Also showed a nonobstructing 4 mm right kidney stone. He denies fevers or chills. Discharge Providers Provider Date of admission: 06/03/22 09:34 Discharge Date: 06/05/22 Primary care physician: Doctor Adolfo MD Consults: None Discharge provider: Demar Amaral MD Summary Hospital Course Discharge Diagnosis: 1. Infectious diarrhea, present on admission and resolved. 2. Hypovolemia, present on admission and improved. 3. Acute kidney injury, present on admission and improved. Hospital Course: Patient was admitted with diarrhea and volume depletion. He was treated symptomatically with antiemetics, and IV fluids. He symptomatically improved and was able to tolerate a diet on the day of discharge. He was in agreement with discharge home. Status at Discharge Cognitive/behavioral status at discharge: oriented Functional status at discharge: independent ambulation Overall status at discharge: patient is back to baseline Time Spent with Patient Time spent: Greater than 30 minutes Exam Vital Signs (past 8 hours): - 06/04/22 05:57 06/04/22 08:15 Temperature 98.5 F 97.5 F L Pulse Rate 57 L 59 L Respiratory Rate 18 18 Blood Pressure 106/56 L 127/79 Pulse Oximetry 96 98 Oxygen Flow Rate 0 0 Oxygen Delivery Method Room Air Oxygen Flow Rate 0 Narrative Exam Narrative: General: Alert, well-developed and well-nourished male in no acute distress HEENT: Anicteric, PERRLA, oropharynx dry Neck: No lymphadenopathy Lungs: Clear to auscultation Heart: Normal S1 and S2, regular rate and rhythm, no murmur Abdomen: Flat, nontender, no HSM Extremities: No edema Neurological: Affect normal, speech normal, nonfocal Objective Labs 06/04/22 05:46 06/04/22 05:46 Labs: Laboratory Results - last 24 hr 06/03/22 06/03/22 06/04/22 06:05 13:26 05:46 WBC 8.0 RBC 5.05 Hgb 13.9 Hct 41.4 MCV 81.8 MCH 27.4 MCHC 33.5 RDW 14.5 Plt Count 197 Neut % (Auto) 55.6 D Lymph % (Auto) 30.3 [place] % (Auto) 10.7 Eos % (Auto) 3.0 Baso % (Auto) 0.4 Neut # (Auto) 4400 Lymph # (Auto) 2400 [place] # (Auto) 900 Eos # (Auto) 200 Baso # (Auto) 0 Sodium Potassium Chloride Carbon Dioxide BUN Creatinine Estimated GFR BUN/Creatinine Ratio Glucose Calcium Urine Color Yellow Urine Appearance Clear Urine pH 5.0 Ur Specific [place] 1.020 Urine Protein 2+ H Urine Glucose (UA) Negative Urine Ketones Negative Urine Occult Blood 2+ H Urine Nitrate Negative Urine Bilirubin Negative Urine Urobilinogen 0.2 Ur Leukocyte Esterase Negative Urine RBC 5-10/hpf H Urine WBC None seen Ur Squamous Epith Cells 1-5 /hpf Urine Bacteria None seen Hyaline Casts 5-10/lpf Ur Culture Indicated? Cult not indicated SARS-CoV-2 (PCR) Negative 06/04/22 05:46 WBC RBC Hgb Hct MCV MCH MCHC RDW Plt Count Neut % (Auto) Lymph % (Auto) [place] % (Auto) Eos % (Auto) Baso % (Auto) Neut # (Auto) Lymph # (Auto) [place] # (Auto) Eos # (Auto) Baso # (Auto) Sodium 136 L Potassium 4.6 Chloride 108 H Carbon Dioxide 20 L BUN 46 H Creatinine 1.75 H Estimated GFR 44 L BUN/Creatinine Ratio 26.3 H Glucose 101 H Calcium 8.4 Urine Color Urine Appearance Urine pH Ur Specific [place] Urine Protein Urine Glucose (UA) Urine Ketones Urine Occult Blood Urine Nitrate Urine Bilirubin Urine Urobilinogen Ur Leukocyte Esterase Urine RBC Urine WBC Ur Squamous Epith Cells Urine Bacteria Hyaline Casts Ur Culture Indicated? SARS-CoV-2 (PCR) PFSH Medical History Kidney stones Social History household members: family Smoking Status: Current every day smoker alcohol intake: current Discharge Assessment & Plan Assessment and Plan Assessment: 1. Acute kidney injury secondary to norovirus gastroenteritis, improved. -likely prerenal inpatient without prior renal disease, patient is making urine with IV fluids -received 3 L LR in ED -improved after fluids. 2. Acute norovirus gastroenteritis, improved. -patient with improving vomiting and diarrhea overnight -continue IV hydration -improved after fluids. 3.? Hypertension, hyperlipidemia. Stable. -hold lisinopril and gemfibrozil until discharge. 4. Sterile sigmoid abscess secondary to diverticular disease, stable. -this was incidentally noted on CT and smaller in size relative to CT in 2019 Plan of Treatment: Discharge home. Discharge Plan Discharge Plan Patient Disposition: Home Provider Discharge Comment: Take plenty of fluids. Discharge orders & Medications Prescriptions: Continued gemfibrozil 600 mg tablet 600 mg PO DAILY lisinopril 10 mg tablet 10 mg PO DAILY Medication counseling provided by Pharmacist: No Follow up/Referrals: Doctor Mata MD [Primary Care Provider] - 1 Week (scchedule a follow up with your rate and cost analyst for in 1 week from discharge ) Discharge Health Status Multidrug resistant organism: No MDRO Diet/Activity/Treatments Diet: Diet as Tolerated Activity: As tolerated. Skin/Wound/Dressing Care Report to your healthcare provider any signs of infection, such as:: chills, fever, night sweats and increased pain Visit Report/Discharge Packet Stand Alone Forms: Patient Portal/API Discharge Data Primary Care Provider: Doctor Adolfo Quality VTE Deep Vein Thrombosis/Pulmonary Embolism Present on Admission: No
--- NOTE | 2022-06-04 10:48 | PC.NURSE ---
Pt is A&OX3, VSS, afebrile on RA. He denies SOB, dizziness, pain or weakness. He is able to ambulate around the room independently and reports diarrhea has stopped. MD at bedside this a.m. clearing patient for discharge home without any new prescriptions. Patient verbalizes understanding of following up with his PCP in 1 week and drinking plenty of water. He is escorted to hospital entrance for ride with spouse with all of his belongings at approximately 1000a.m. this morning.
== END 2022-06-04 10:00 | disposition home or self-care (01) | DRG 392 ==
LOC: ED 08:21 → AC 09:35
PROVIDERS: Internal Medicine; Admitting Provider Student in an Organized Health Care Education/Training Program; Emergency Provider Emergency Medicine; Referring Provider Emergency Medicine; Visit Provider Student in an Organized Health Care Education/Training Program
DX: A08.11 Acute gastroenteropathy due to Norwalk agent (principal); N17.9 Acute kidney failure, unspecified; K57.20 Diverticulitis of large intestine with perforation and abscess without bleeding; I10 Essential (primary) hypertension; E78.5 Hyperlipidemia, unspecified; E86.9 Volume depletion, unspecified; F17.210 Nicotine dependence, cigarettes, uncomplicated; Z20.822 Contact with and (suspected) exposure to COVID-19
CPT/HCPCS: 36415; 74176; 76770; 80048; 80053; 81001; 81003; 82570; 83605; 83690; 84300; 85025; 87040; 87507; 87635; 93005; 93010; 96365; 96375; 99284; C9803; C9113; J2405; J2543

== ENCOUNTER → 2022-12-23 10:01 | Outpatient (CLI) | payer OTHER, SELFPAY ==
[2022-06-03 12:30] VITALS: BMI 28.1
--- NOTE | 2022-12-23 | DI.RAD.S_ITS ---
PROCEDURE: XR CLAVICLE RT INDICATIONS: SHOULDER SEPARATION TECHNIQUE: 2 views of the clavicle were acquired. COMPARISON: [facility], CR, XR HUMERUS RT 2V, 12/23/2022, 10:09. [facility], CR, XR SHOULDER RT MIN 2V, 12/23/2022, 10:09. FINDINGS: Bones: No fractures or dislocations. Moderate acromioclavicular joint degeneration. No suspicious bony lesions. Soft tissues: No suspicious soft tissue calcifications. IMPRESSION: No acute osseous abnormality. No AC separation. If clinically indicated, weight bearing views of the clavicles can be helpful Dictated by: Lilliam Fisher M.D. on 12/23/2022 at 11:53 Approved by: Lilliam Fisher M.D. on 12/23/2022 at 11:57
--- NOTE | 2022-12-23 | DI.RAD.S_ITS ---
PROCEDURE: XR SHOULDER RT MIN 2V INDICATIONS: SHOULDER SEPARATION TECHNIQUE: 3 views of the shoulder were acquired. COMPARISON: [facility], CR, XR CLAVICLE RT, 12/23/2022, 10:09. [facility], CR, XR HUMERUS RT 2V, 12/23/2022, 10:09. FINDINGS: Bones: No fractures or dislocations. No suspicious bony lesions. Moderate acromioclavicular and glenohumeral joint degeneration. There is a prominent undersurface osteophyte in the distal clavicle. There is a small ossicle in the superior aspect of the AC joint. Visualized ribs appear intact. Soft tissues: No suspicious soft tissue calcifications. IMPRESSION: 1. Moderate osteoarthritis. 2. Prominent undersurface osteophyte in the distal clavicle. Dictated by: Lilliam Fisher M.D. on 12/23/2022 at 11:48 Approved by: Lilliam Fisher M.D. on 12/23/2022 at 11:52
--- NOTE | 2022-12-23 | DI.RAD.S_ITS ---
PROCEDURE: XR HUMERUS RT 2V INDICATIONS: SHOULDER SEPARATION TECHNIQUE: 2 views of the humerus were acquired. COMPARISON: [facility], CR, XR CLAVICLE RT, 12/23/2022, 10:09. [facility], CR, XR SHOULDER RT MIN 2V, 12/23/2022, 10:09. FINDINGS: Bones: No fractures or dislocations. No suspicious bony lesions. Soft tissues: No suspicious soft tissue calcifications. IMPRESSION: No acute osseous abnormality. Dictated by: Lilliam Fisher M.D. on 12/23/2022 at 11:52 Approved by: Lilliam Fihser M.D. on 12/23/2022 at 11:53
== END ==
PROVIDERS: Referring Provider Family Medicine; Visit Provider Family Medicine
DX: S43.004A Unspecified dislocation of right shoulder joint, initial encounter (principal); M19.011 Primary osteoarthritis, right shoulder; M25.711 Osteophyte, right shoulder
CPT/HCPCS: 73000; 73030; 73060

== ENCOUNTER → 2023-05-17 08:54 | Outpatient (CLI) | payer OTHER, SELFPAY ==
[2022-06-03 12:30] VITALS: BMI 28.1
--- NOTE | 2023-05-17 09:02 | DI.CT.S_ITS ---
PROCEDURE: CT LUNG LOW DOSE SCREENING INDICATIONS: Nicotine dependence, unspecified, uncomplicated TECHNIQUE: Noncontrast 2.0-2.5 mm thick sections acquired from the pulmonary apices to the posterior costophrenic angles. 7 mm thick axial MIP, and 5 mm coronal and sagittal reformats were then acquired. For radiation dose reduction, the following was used: automated exposure control, adjustment of mA and/or kV according to patient size. COMPARISON: [facility], CT, CT ABDOMEN PELVIS W CON, 03/03/2019, 0:01. FINDINGS: Image quality: Diagnostic. Lower Neck: No enlarged lymph nodes. Thyroid: No thyroid nodules which require sonographic follow up, per consensus guidelines. Axillae: No enlarged lymph nodes. Chest Wall: Unremarkable. Bones: Unremarkable. Lungs and Pleura: Emphysematous lung changes. No pneumothorax or pleural effusions. No consolidation or suspicious nodules. Heart: Heart size is normal. No pericardial effusion. Scattered coronary calcifications Thoracic Vessels: The aorta and pulmonary arteries demonstrate normal size. Mediastinum and Radha: No enlarged lymph nodes. Esophagus: No wall thickening. No hiatal hernia. Upper Abdomen: 3 cm soft tissue density nodule , incompletely visualized, of left kidney, dromedary hump as seen on prior CT dated 03/03/2012. 5 mm nonobstructive stone of the collecting system of the right kidney. IMPRESSION: LUNG-RADS 1; continued annual screening, if eligible. Clinically Significant Non-pulmonary Findings: None. Dictated by: Lei Arita M.D. on 05/17/2023 at 11:08 Approved by: Lei Arita M.D. on 05/17/2023 at 11:16
== END ==
PROVIDERS: Referring Provider Family Medicine; Visit Provider Family Medicine
DX: F17.200 Nicotine dependence, unspecified, uncomplicated (principal); Z12.2 Encounter for screening for malignant neoplasm of respiratory organs; I25.10 Atherosclerotic heart disease of native coronary artery without angina pectoris
CPT/HCPCS: 71271

== ENCOUNTER → 2023-05-20 09:46 | Outpatient (CLI) | payer OTHER, SELFPAY ==
[2022-06-03 12:30] VITALS: BMI 28.1
[2023-05-20 10:46] LABS: BUN Creatinine Ratio 20.5 (6-22); Blood Urea Nitrogen 17 mg/dL (9-20); Calcium 9.6 mg/dL (8.4-10.2); Carbon Dioxide 25 mmol/L (22-32); Chloride 107 mmol/L (98-107); Estimated Glomerular Filt Rate > 60 mL/min (>60); Glucose 100 mg/dL (80-110); Potassium 4.5 mmol/L (3.4-5.1); Sodium 137 mmol/L (137-145)
[2023-05-20 10:48] LABS: HEMOLYSIS 65 (0-50)
[2023-05-20 15:03] LABS: Prostate Specific Antigen Scrn 0.642 ng/mL (0.1-4.0)
== END ==
PROVIDERS: Referring Provider Urology; Visit Provider Urology
DX: R31.21 Asymptomatic microscopic hematuria (principal); Z12.5 Encounter for screening for malignant neoplasm of prostate
CPT/HCPCS: 36415; 80048; G0103

== ENCOUNTER → 2023-05-28 14:04 | Outpatient (CLI) | payer OTHER, SELFPAY ==
[2022-06-03 12:30] VITALS: BMI 28.1
--- NOTE | 2023-05-28 14:06 | DI.CT.S_ITS ---
PROCEDURE: CT ABDOMEN PELVIS WO/W CON INDICATIONS: Asymptomatic microscopic hematuria rule out malignancy TECHNIQUE: Optional 5 mm thick noncontrast images acquired from the diaphragm to the symphysis pubis. After the administration of intravenous contrast, 5 mm thick images acquired from the diaphragm to the symphysis pubis after a 10-minute delay. 2 mm thick coronal and sagittal reformats were then performed of the kidneys and ureters. For radiation dose reduction, the following was used: automated exposure control, adjustment of mA and/or kV according to patient size. COMPARISON: None. FINDINGS: Image quality: Diagnostic. Kidneys and Ureters: Both kidneys are normal in size, without hydronephrosis. 4 mm nonobstructing stone in the superior calyx of the right kidney. No perinephric fat stranding. There is normal bilateral renal enhancement. Renal calyces appear normal in morphology when filled with contrast. Opacified portions of both ureters demonstrate normal caliber Bladder: Bladder wall thickness is normal. No calcified bladder stones. OTHER: Lower chest: Unremarkable. Liver: No solid mass. Hepatic steatosis. Gallbladder: Absent. Biliary ducts: No biliary dilation. Pancreas: No ductal dilation. Spleen: Size is within normal limits. Adrenal Glands: No adrenal nodules. Stomach and Bowel: Wall thickening of the rectosigmoid junction. There is a fistula between the upper rectum and the sigmoid colon, with tethering of the adjacent small bowel (series 7, image 42). Colonic diverticulosis without evidence of diverticulitis. Peritoneum: No abnormal intraperitoneal fluid. No free air. Ventral Wall: No hernia. Abdominal Nodes: No retroperitoneal or mesenteric adenopathy by size criteria. Vessels: Aorta and inferior vena cava are normal in size. PELVIS: Pelvic Organs: Unremarkable. Pelvic Nodes: No enlarged lymph nodes. Miscellaneous: No inguinal hernias are seen. Bones: No aggressive osseous abnormality. Ankylosis of the sacroiliac joints. IMPRESSION: 4 mm nonobstructing right-sided nephrolithiasis. No filling defects within the opacified renal collecting system or ureters otherwise. Colorectal fistula , with associated sigmoid colonic wall thickening. This could be due to a sequela of inflammatory bowel disease, sequela of diverticulitis or due to underlying malignancy. Recommend GI referral for endoscopic evaluation. Dictated by: Jayesh Riley M.D. on 05/28/2023 at 15:16 Approved by: Jayesh Riley M.D. on 05/28/2023 at 15:27
== END ==
PROVIDERS: Referring Provider Urology; Visit Provider Urology
DX: K63.2 Fistula of intestine (principal); K60.4 Rectal fistula; R31.21 Asymptomatic microscopic hematuria; K76.0 Fatty (change of) liver, not elsewhere classified; K57.90 Diverticulosis of intestine, part unspecified, without perforation or abscess without bleeding; N20.0 Calculus of kidney
CPT/HCPCS: 74178; Q9967

== ENCOUNTER 2023-07-07 11:38 | Inpatient (IN) | payer OTHER, SELFPAY ==
[2022-06-03 12:30] VITALS: BMI 28.1
[2023-06-29 12:29] VITALS: BMI 29.0
--- NOTE | 2023-07-06 08:08 | PM.PREOP ---
Pre-operative Note Interval Note History & Physical reviewed/Exam performed by Physician: Yes Changes to H&P: No
[2023-07-07] VITALS (14 sets, daily range): BP systolic 119–144; BP diastolic 79–95; PULSE 76–98; RESP 12–20; TEMP 36.1–36.9; O2SAT 95–100; BMI 26.6
--- NOTE | 2023-07-07 | PATH_ITS ---
[facility] Accession Number: [id number] No. of containers..01 Tissue . 01 Material submitted: . colon - SIGMOID COLON . 01 Diagnosis: SIGMOID COLON, SIGMOID COLECTOMY: Segment of colon with diverticulosis and serosal adhesions, consistent with operative impression of vesicointestinal fistula. Four benign pericolonic lymph nodes. Negative for dysplasia or malignancy. [facility] 07/14/2023 1747 Local . 01 Electronically signed: . Jorge Luis Woods MD, PhD, Pathologist NPI- [id number] . 01 Gross description: . Received in formalin with two patient identifiers and sigmoid colon, is a 7.5 cm in length by 3.4 cm in diameter segment of large bowel, which is not oriented. The stapled resection margins are differentially inked blue and black. There is a 3.5 x 2.5 x 0.2 cm discrete area of marked fibrous adhesions on the external surface of the bowel, this area is inked orange. The area of adhesions is further located 0.5 cm from the blue-inked staple line resection margin. The remaining serosal surface is maravilla-pink, smooth, glistening, and otherwise unremarkable. The bowel wall is diffusely thickened and fibrotic, ranging from 0.2 cm up to 0.8 cm in thickness. The mucosa has multiple diverticula located throughout the specimen, these range from 0.3 x 0.2 x 0.2 cm to up 1.1 x 1.0 x 0.6 cm, some of which are filled with fecal material. In addition, there is a 1.1 x 0.3 x 0.3 cm distinct diverticulum that is located directly subjacent to the aforementioned orange-inked fibrous adhesed area. The remaining pericolonic adipose tissue has multiple red-maravilla, well-encapsulated lymph nodes ranging from 0.2 cm up to 0.4 cm in greatest dimension. Set Up Inspector sections are submitted in cassettes: . A1: Blue-inked margin closest to orange-inked area fibrous adhesions. A2: Opposing green-inked margin. A3: Diverticulum directly subjacent to orange-inked fibrous area. A4: Set Up Inspector diverticulum. A5: Four possible lymph nodes. A6: Two possible lymph nodes. ([id number]) /MRV 07/09/2023 [facility]4 Local . 01 Pathologist provided ICD-10: N32.1, K57.20 . 01 CPT . 076661 Specimen Comment: A courtesy copy of this report has been sent to [phone] Performed at: 01 [facility] [address] [place] [address], [place], [place] [id number] MD Matthew Spence MD Phone: [phone]
--- NOTE | 2023-07-07 11:57 | PC.NURSE ---
Day shift: Pt is not in room 202 at this time (1200).
[2023-07-07] MEDS: LACTATED RINGERS 1,000 ML 21 ML IV ×2 (12:31→15:45)
[2023-07-07] MEDS: PIPERACILLIN/TAZO 3.375 GM in SODIUM CHLORIDE 0.9% 100 ML IV ×2 (14:27→15:44)
--- NOTE | 2023-07-07 14:46 | SUR.OPER ---
Lithotomy on padded OR bed. [place] Pad Positioner under torso. Head on pillow, arms padded and tucked at sides. Legs secured in padded yellow fins stirrups.
[2023-07-07] MEDS: BUPIVACAINE 0.25% (PF) VIAL 30 ML INJ (15:09)
[2023-07-07] MEDS: ACETAMINOPHEN IV 1,000 MG/100 ML VIAL 400 MG IV (15:44)
--- NOTE | 2023-07-07 19:45 | P.OP_ITS ---
Operative Date/Time/Diagnoses Date of procedure: 07/07/23 Time of procedure: 19:45 Pre-op diagnosis: Colovesicular fistula Post-op diagnosis: same Procedure & Clinicians Procedure: Laparoscopic converted to open sigmoid colectomy Same procedure as scheduled: Yes Indications: Jacob is a 58-year-old man with a history of complicated diverticulitis with perforation and abscess who developed a colovesicular fistula. Following discussion of the risks benefits and alternatives he agreed to proceed with a sigmoid colectomy Surgeon: Renzo Coon Electrical Logging Engineer: Cliff Goldman Anesthesia Type: General Operative Notes Findings: Sigmoid colon densely adherent to the sacrum and lateral pelvic wall consistent with prior complicated diverticulitis Specimen(s): other (Sigmoid colon) Estimated Blood Loss (mL): 200 Procedure in detail: Patient was brought to the operating room placed supine on the table. Bilateral lower extremity compression devices were applied. General anesthesia was induced he was intubated with an endotracheal tube. Cerrato catheter was sterilely placed and he was placed into lithotomy position. He was appropriately padded. He was then prepped and draped in sterile fashion and a time-out was performed. A infraumbilical incision was made and the abdomen was entered atraumatically. Pneumoperitoneum was established. Additional ports in the suprapubic left upper quadrant and right lower quadrant were made. General examination of the abdomen was made and there was a large amount of intra- abdominal adipose tissue. We began with mobilization of the sigmoid colon along the white line of Toldt. We could proceed only a short distance largely a result of the intra-abdominal adipose tissue. Despite maximum tilt of the table and the placement of additional ports for retraction it was very difficult to visualize the left pericolic gutter. We then turned our attention to the pelvis were we encountered very dense adhesions between the sigmoid colon and the left pelvic wall. At this point we converted to an open operation unable to make safe forward progress. A midline laparotomy was made. Self-retaining retractor placed. We completed the mobilization of the left colon to the splenic flexure. Attention was then turned to the pelvis. We identified the left and right ureters by there for manipulation and these were kept posterior out of harm's way. Using blunt dissection with finger fracture the sigmoid colon was mobilized off the lateral pelvic wall and the sacral promontory. Where the sigmoid colon was in connection with the bladder there was a loop of small bowel present at this juncture and all of the structures were from 1 another. No rut hole within the bladder was identified. We divided the descending colon at its juncture with the sigmoid colon. A window within the mesentery was made and the colon was divided using the contour stapler. The mesentery to the sigmoid colon was then divided using the LigaSure staying close to the wall of the colon with the ureter kept posterior out of harm's way. The dissection was continued down to the rectosigmoid junction. Ultimately the rectosigmoid junction was divided using the contour stapler again. The rectum was sized and appropriately fit a 33 mm Sizer and so at 31 mm EEA stapler was selected. The staple line was resected from the proximal colon and a pursestring was created with PDS suture and the anvil placed within it. The stapler was advanced forward within the rectum and its point deployed through the end of the rectal stump. The anvil and stapler were mated and the anastomosis formed. Inspection of the anastomotic donuts demonstrated a disrupted proximal donut the distal donut was complete. The anastomosis was tested and there was evidence of a leak and in fact we could see a rather generous hole within the side wall of rectum which I did not think would be amenable to suture repair. We therefore resected another couple of cm at the rectosigmoid junction and then another anvil was placed into the proximal end in the same fashion. The stapler was placed into the rectum and its point was deployed through the anterior wall of the rectum. This time when the anastomosis was formed the proximal and distal donuts were both intact and a leak test performed by inflating the colon with the colonoscope while holding the anastomosis under saline demonstrated no evidence of leak. The anastomosis was inspected it was without tension and well perfused. The abdomen was copiously lavaged with saline which returned clear and hemostasis was checked. The abdomen was then closed with PDS suture in a running fashion. The subcutaneous tissue was reapproximated with Vicryl and the skin closed with geoff. The sponge and instrument count was correct x2. Tap blocks were performed by the anesthesia team prior to extubation. He was then extubated and transferred to recovery in stable condition. Complications: none Post-operative Condition: stable Disposition: Acute Care
[2023-07-07] MEDS: OXYCODONE IR 10 MG TABLET PO (20:12)
[2023-07-07] MEDS: DEXTROSE 5%-0.45% NS 1,000 ML 100 ML IV (20:54)
[2023-07-07] MEDS: HYDROMORPHONE 0.5 MG INJ IV (22:33)
--- NOTE | 2023-07-07 23:40 | PC.NURSE ---
Patient admitted to AC from PACU at 19:45. Alert and oriented x 4, drowsy. Has abdominal binder on and midline dressing is CDI. Oriented to room and call light. Bed alarm on and call light within reach. Spouse present at bedside upon admit.
[2023-07-08] VITALS (11 sets, daily range): BP systolic 90–128; BP diastolic 48–86; PULSE 74–104; RESP 16–19; TEMP 36.2–37; O2SAT 93–100
[2023-07-08] MEDS: OXYCODONE IR 10 MG TABLET PO ×5 (01:28→16:32)
[2023-07-08] MEDS: ACETAMINOPHEN 325 MG TABLET 650 MG PO (01:29)
[2023-07-08 06:43] LABS: Add Manual Diff / Slide Review NO; Basophils Absolute Auto 0 /uL (0-100); Basophils Percent Auto 0.2 % (0-2); Eosinophils Absolute Auto 0 /uL (0-450); Eosinophils Percent Auto 0.1 % (2-4); Hematocrit 45.9 % (41-53); Hemoglobin 15.6 g/dL (13.5-17.5); Lymphocytes Absolute Auto 2000 /uL (1100-4500); Lymphocytes Percent Auto 17.8 % (25-40); Mean Corpuscular HGB Conc 34.1 % (30-36); Mean Corpuscular Hemoglobin 27.6 PG (26-34); Monocytes Absolute Auto 1200 /uL (0-900); Monocytes Percent Auto 10.4 % (3-14); Neutrophils Absolute Auto 8000 /uL (1500-7000); Neutrophils Percent Auto 71.5 % (50-75); Platelet Count 209 X10^3/uL (150-400); Red Blood Cell Count 5.67 X10^6/uL (4.5-5.9); Red Cell Distribution Width 15.6 % (11.6-14.8); White Blood Cell Count 11.2 X10^3/uL (4.5-11.0)
[2023-07-08] MEDS: OXYCODONE IR 5 MG TABLET PO ×2 (06:52→20:24)
[2023-07-08] MEDS: DEXTROSE 5%-0.45% NS 1,000 ML 100 ML IV (06:53)
[2023-07-08 07:26] LABS: Potassium 4.3 mmol/L (3.4-5.1)
[2023-07-08 07:27] LABS: Blood Urea Nitrogen 23 mg/dL (9-20); Calcium 7.9 mg/dL (8.4-10.2); Carbon Dioxide 19 mmol/L (22-32); Chloride 110 mmol/L (98-107); Estimated Glomerular Filt Rate > 60 mL/min (>60); Glucose 150 mg/dL (80-110); HEMOLYSIS 17 (0-50); Sodium 137 mmol/L (137-145)
[2023-07-08] MEDS: ENOXAPARIN 40 MG/0.4 ML SYRINGE SUBCUT (08:43)
[2023-07-08] MEDS: lisinopriL 20 MG TABLET PO (08:43)
[2023-07-08] MEDS: hydroCHLOROthiazide 25 MG TABLET 12.5 MG PO (08:43)
--- NOTE | 2023-07-08 11:30 | OT.IP.EVAL ---
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) Surgery Performed Operation Date: 07/07/23 12:15 Actual Procedures p Laparoscopically Assisted Sigmoid Colectomy(Not Applicable) - Renzo Coon MD Past Medical History Asymptomatic microscopic hematuria Bladder outlet obstruction History of calculus of gallbladder History of renal failure HLD (hyperlipidemia) HTN (hypertension) Hx of gout Hx of herpes genitalis Hx of nephrolithotomy with removal of calculi Hx of primary hypertension Kidney stones Lower urinary tract symptoms Norovirus (06/11/22) Right kidney stone Tobacco use Surgical History (Last Updated 06/29/23 @ 13:10 by Jessica Tanner RN) H/O wrist surgery History of ankle surgery History of cholecystectomy Occupational Therapy Inpatient Evaluation/Re-Eval M1 PT/OT-IP Prior Functional Status Start: 07/08/23 11:33 Freq: NEEDED Status: Active Protocol: Document 07/08/23 11:00 [facility] (Rec: 07/08/23 11:52 [facility] [id number]) Medical Review Prior Functional Status Medical History Reviewed Yes Communication Independent Mobility and Gait Independent and works at a [employer]. Activities of Daily Living and IADL's Completely independent with ADl and IADL needs. Social History Household Members significant other Living Arrangements RV Number of Stairs To Enter/Railing? 3 steps with left rail Home Environment Standard Height Toilet,Tub/ Shower Home Equipment Hand Held Shower Additional Social History Comment Pt has a significant other to be able to assist. M2 OT-IP Current Condition Start: 07/08/23 11:33 Freq: Status: Active Protocol: Document 07/08/23 11:00 [facility] (Rec: 07/08/23 11:52 [facility] [id number]) Occupational Therapy Current Condition Current Condition Evaluation Date 07/08/23 Treatment Diagnosis S/P colon resection Diagnosis Onset Date 07/07/23 Post Operative Precautions Abdominal Surgery Precautions Log Roll,Lifting Restrictions, Gait Belt above Incisional Area M3 OT- IP Subjective and Pain Start: 07/08/23 11:33 Freq: Status: Active Protocol: Document 07/08/23 11:00 [facility] (Rec: 07/08/23 11:52 [facility] [id number]) OT- Subjective Occupational Therapy Visit Type Type Initial Evaluation Visit Start Time 11:00 Visit Stop Time 11:30 Occupational Therapy Visit Comments Patient Comments Pt agreed to get up and brush his teeth. Patient/Caregiver Goals To go home. OT Pain Assessment Pain When Pain Assessed At Rest Pain Present Pain Present Pain Reported Location abd Intensity 5 Scale Used Numeric (0 - 10) M4 OT- IP ADL's Start: 07/08/23 11:33 Freq: Status: Active Protocol: Document 07/08/23 11:00 [facility] (Rec: 07/08/23 11:52 [facility] [id number]) OT [id number] Comments OT Self-Feeding Comments Pt on clear liquids at this time. OT ADL-Grooming General Evaluation Grooming Ability Independent Areas Needing Assistance Retrieving/Set-up of Grooming Items Comments OT Grooming Comments Able to do while standing with FWW. OT ADL-Oral Care General Eval Oral Care Ability Independent OT ADL-Dressing General Eval Lower Body Dressing Ability Maximum Assistance Comments OT Dressing Comments Able to show pt LB dressing equipment but too tired to try at this time. OT ADL-Toileting General Evaluation Toileting Ability Total Assistance Comments OT Toileting Comments Cerrato in place. Educated pt best to stand to wipe and use of wet ones to best follow his abdominal precautions. OT ADL-Bathing Comments OT Bathing Comments Pt may benefit from a shower chair , long handled brush and assist for showering pending progress. Otherwise to sponge off until clear to shower. M5 OT- IP IADL's Start: 07/08/23 11:33 Freq: Status: Active Protocol: Document 07/08/23 11:00 [facility] (Rec: 07/08/23 11:52 [facility] [id number]) OT-Instrumental Activities of Daily Living Deficits IADL Deficits Identified Deficits Home Safety Awareness Awareness of Need for Assistance at Home Good Awareness Ability to Problem Solve Emergency Able to Problem Solve Situations Medication Management Medication Management Comments Pt a bit groggy at this time and will benefit from assist. Meal Preparation Meal Preparation Caregiver Provides Assist Siebel Solution Architect Siebel Solution Architect Caregiver Provides Assist M6 OT- IP Functional Cognition Start: 07/08/23 11:33 Freq: Status: Active Protocol: Document 07/08/23 11:00 [facility] (Rec: 07/08/23 11:52 [facility] [id number]) Cognitive Factors Limiting Selfcare Function Cognitive Ability Level of Alertness Alert,Drowsy Patient Orientation Name,Age,Birthday,Month,Date, Year,Day of Week,Place, Situation Attention Span Ability Capable of Focused Attention, Capable of Sustained Attention Ability to Follow Commands Able to Follow Multi-Step Commands Cognitive Comments Cognitive Assessment Comments Intact and able to follow abdominal precautions after initial education. OT- Vision and Hearing OT- Hearing Assessment OT- Hearing Assessment WFL M7 OT- IP Mobility and Balance Start: 07/08/23 11:33 Freq: Status: Active Protocol: Document 07/08/23 11:00 [facility] (Rec: 07/08/23 11:52 [facility] [id number]) OT- Bed Mobility Assessment Supine to Sit Supine to Sit Assist Minimal Assistance Scooting Scooting to Edge of Bed Standby Assistance OT-Transfer Assessment Sit to and From Stand Sit to and from Stand Contact Guard Assistance Transfers Transfer Ability Standby Assistance,Contact Guard Assistance Technique Transfer Destination Bed,Chair Transfer Technique Stand Step Pivot Devices Transfer Assistive Devices Gait Belt,Front Wheeled Walker Comments Mobility Comments JAE for bed mobility to help get his trunk upright. CGA to stand with initially cues to push up from the bed and armrests of the recliner to stand to FWW. CGA to close SBA with FWW. OT- Balance Assessment Sitting Balance and Reactions Static Sitting Balance Ability Good Dynamic Sitting Balance Ability Good Standing Balance and Reactions Static Standing Balance Ability Good Dynamic Standing Balance Ability Good M8 OT- IP Objective Assessments Start: 07/08/23 11:33 Freq: Status: Active Protocol: Document 07/08/23 11:00 [facility] (Rec: 07/08/23 11:52 [facility] [id number]) OT Gross Range of Motion Upper Extremity Range of Motion Assessment Within Functional Limits OT Strength Upper Extremity Strength Assessment Within Functional Limits M9 OT- IP Assessment and Plan Start: 07/08/23 11:33 Freq: Status: Active Protocol: Document 07/08/23 11:00 [facility] (Rec: 07/08/23 11:52 [facility] [id number]) OT Summary Assessment and Plan Potential Rehabilitation Potential Excellent Analytic Complexity at Evaluation Low Summary OT Impairments Pain,Balance,Functional Mobility,Dressing,Toileting, Bathing,Toilet Transfers, Shower Transfers,Activity Tolerance Progress Towards Goals Progressing Toward Goals,Slow Progress due to Pain,Slow Progress due to Activity Tolerance Assessment Summary Pt low complexity and main barriers are pain and decreased activity tolerance. Pt will benefit from LB dressing and showering equipment and OT to continue to follow pt for most appropriate equipment needed pending progress. Pt to go home with assist when medically stable. Goals Dressing Goal Independent,Long Handled Shoe Horn,Manager Intensive Care,Sock Aid Toileting Goal Independent Bathing Goal Standby Assistance Toilet Transfer Goal Independent Shower Transfer Goal Standby Assistance Patient/Caregiver Education Goal Demonstrate Post-Op Precautions Days to Meet Goals 5 Frequency of Treatment Frequency Of Treatment Once a Day Treatment Plan OT Treatment Plan ADL Training,Functional Mobility,Patient/Family Education,Discharge Planning Other Treatment Recommendations and Next practice LB dressing equipment Treatment Focus Discharge Recommendations OT Discharge Recommendations Home with Assistance Home Equipment Needs LB dressing, shower chair, long handled brush Transportation Needs at Discharge Private Vehicle
--- NOTE | 2023-07-08 11:41 | PT.IIE ---
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) Surgery Performed Operation Date: 07/07/23 12:15 Actual Procedures p Laparoscopically Assisted Sigmoid Colectomy(Not Applicable) - Renzo Coon MD Surgical History (Last Updated 06/29/23 @ 13:10 by Jessica Tanner RN) H/O wrist surgery History of ankle surgery History of cholecystectomy Medical History Asymptomatic microscopic hematuria Bladder outlet obstruction History of calculus of gallbladder History of renal failure HLD (hyperlipidemia) HTN (hypertension) Hx of gout Hx of herpes genitalis Hx of nephrolithotomy with removal of calculi Hx of primary hypertension Kidney stones Lower urinary tract symptoms Norovirus (06/11/22) Right kidney stone Tobacco use Physical Therapy Inpatient Evaluation/Re-Eval M1 PT/OT-IP Prior Functional Status Start: 07/08/23 08:23 Freq: NEEDED Status: Active Protocol: Document 07/08/23 10:57 MB (Rec: 07/08/23 11:40 MB [id number]) Medical Review Prior Functional Status Medical History Reviewed Yes Diet/Fluid Consistency Regular Communication WNLs Mobility and Gait I, worked fixing yachts Activities of Daily Living and IADL's I, worked Social History Household Members significant other Living Arrangements RV Number of Floors (Floors) One Floor Number of Stairs To Enter/Railing? 3 steps left rail to enter Home Environment Standard Height Toilet,Tub/ Shower Home Equipment Hand Held Shower Additional Social History Comment Unsure how many hours pt worked M2 PT-IP Current Condition Start: 07/08/23 08:23 Freq: NEEDED Status: Active Protocol: Document 07/08/23 10:57 MB (Rec: 07/08/23 11:40 MB [id number]) Physical Therapy Current Condition Current Condition Evaluation Date 07/08/23 Treatment Diagnosis Open sigmoid colectomy M3 PT-IP Subjective Start: 07/08/23 08:23 Freq: NEEDED Status: Active Protocol: Document 07/08/23 10:57 MB (Rec: 07/08/23 11:40 MB [id number]) Subjective Physical Therapy Visit Type Type Initial Evaluation Visit Start Time 10:57 Visit Stop Time 11:15 Number of REALTIME REPORTER Visits 0 Physical Therapy Visit Comments Patient Comments Pt is agreeable to PT and he has had some adominal pain Therapy Pain Assessment Pain When Pain Assessed At Rest Pain Present Pain Present Pain Reported Location abd Intensity 4 Scale Used Numeric (0 - 10) Pain Management Techniques Distraction,Modification of Treatment,Re-positioning, Timing of Activity with Medications M4 PT-IP Mobility and Gait Start: 07/08/23 08:23 Freq: NEEDED Status: Active Protocol: Document 07/08/23 10:57 MB (Rec: 07/08/23 11:40 MB [id number]) PT-Bed Mobility Assessment Rolling Type of Rolling Log Rolling,Roll to Left Level of Assist Contact Guard Assistance,1 Person Assistance Supine to Sit Supine to Sit Contact Guard Assistance,1 Person Assistance,Bedrails Scooting Scooting to Edge of Bed Contact Guard Assistance PT-Transfer Assessment Sit to and From Stand Sit to and from Stand Minimal Assistance Equipment Transfer Assistive Device Gait Belt,Front Wheeled Walker Orthotic/Prosthetic Devices or Brace: No Transfers Transfer Destination Chair Transfer Technique Stepping Transfer Ability Level of Assist Minimal Assistance Comments Mobility Comments Pt reports increased pain from 4/10 to 5/10 with mobility. BP and HR in LUE are: supine 119/78, 92; standing 105/79 ( no HR reading on machine) and standing 1' 108/87, 116. Pt moves slowly and makes good effort with PT. Initiated log roll and abdominal precautions training. Gait Assessment Gait Gait Assistance Required: Minimum Assistance,1 Person Assist Distance (Feet) 5 Able to Maintain Weight Bearing Status Yes During Gait Assistive Devices Assistive Device Gait Belt,Front Wheeled Walker Orthotic/Prosthetic Devices or Brace: No Gait Deviations General Gait Pattern Antalgic,Decreased Stride Length,Decreased Feet Clearance,Flexed Trunk Factors Limiting Gait Function Factors Limiting Gait Function Decreased Activity Tolerance, Pain,Poor Safety Awareness Comments Gait Comments Pt gait trains a few feet from the bed to the chair PT-Balance Assessment Sitting Balance and Reactions Static Sitting Balance Ability Good Dynamic Sitting Balance Ability Good Standing Balance and Reactions Static Standing Balance Ability Good Dynamic Standing Balance Ability Good Device Used RW M5 PT-IP Objective Assessments Start: 07/08/23 08:23 Freq: NEEDED Status: Active Protocol: Document 07/08/23 10:57 MB (Rec: 07/08/23 11:40 MB [id number]) Orientation Orientation/Cognition Level of Alertness Alert Orientation Name,Age,Birthday,Month,Date, Year,Day of Week,Place, Situation Language Function Ability No Deficits Noted Safety Awareness Decreased Safety Awareness Memory Description No Deficits Noted Gross Range of Motion Upper Extremity ROM Impairments Defer to OT Lower Extremity ROM Assessment Within Functional Limits Strength Lower Extremity Strength Assessment Bilaterally Impaired M6 PT-IP Treatment Start: 07/08/23 08:23 Freq: NEEDED Status: Active Protocol: Document 07/08/23 10:57 MB (Rec: 07/08/23 11:40 MB [id number]) Physical Therapy Treatment Education Education Provided Precautions,Safety M7 PT-IP Assessment and Plan Start: 07/08/23 08:23 Freq: NEEDED Status: Active Protocol: Document 07/08/23 10:57 MB (Rec: 07/08/23 11:40 MB [id number]) PT Summary Assessment and Plan Potential Rehabilitation Potential Good Status of Condition at Evaluation Evolving Summary Impairments Pain,ROM,Strength,Balance, Coordination,Bed Mobility, Transfers,Gait,Activity Tolerance Progress Towards Goals Slow Progress due to Pain Assessment Summary Pt is a 58 y/o male presenting with pain and decreased activity tolerance POD1 sigmoid colectomy. His systolic BP drops 14 mmHg supine to standing and he is mildly woozy with standing and stepping. His is tachycardic with HR 116 BPM. He is able to take a few steps with walker today. Recommend up with nsg. Pt reports that his significant other was a GERIATRIC ASSISTANT and will be able to assist him at d/c. Goals Bed Mobility Goal Independent Transfer Goal Independent,Front Wheeled Walker Gait Goal Independent,Front Wheel Walker Gait Distance 100 Other Goals Ascend and descend 3 steps with left rail. Consider gait training 100' with cane or without AD: chart had listed that pt lives in a RV and he might not have room for RW Days to Meet Goals 3 Frequency of Treatment Frequency Of Treatment Once a Day Treatment Plan Physical Therapy Treatment Plan Bed Mobility Training,Transfer Training,Gait Training, Therapeutic Exercise,Balance Retraining,Post Op Education, Discharge Planning,Hot or Cold Pack,Neuromuscular Re-ed, Coordination Retraining,Manual Therapy Precautions Abdominal Surgery Precautions Log Roll,Lifting Restrictions, Gait Belt above Incisional Area Weight Bearing Status Weight Bearing Status Weight Bear as Tolerated Recommendations To Nursing Amount of Assist Needed 1 Person Assist Discharge Recommendations PT Discharge Recommendations Home with Assistance Other Discharge Recommendations May or may not need RW for issue at d/c given progress and space available if he is living in RV Transportation Needs at Discharge Private Vehicle
[2023-07-08] MEDS: HYDROMORPHONE 0.5 MG INJ IV ×4 (11:44→22:23)
--- NOTE | 2023-07-08 12:44 | P.PN_ITS ---
Subjective Subjective Date Patient Seen: 07/08/23 Time Patient Seen: 12:44 Interval history: Postoperative day1 status post sigmoid colectomy for colovesicular fistula No acute overnight events. No flatus or bowel movement Tolerating full liquid diet Exam Vital Signs (past 8 hours): - 07/08/23 06:00 07/08/23 06:00 07/08/23 08:00 Temperature 97.6 F 97.5 F L Pulse Rate 94 H 92 H Respiratory Rate 17 18 Blood Pressure 128/74 124/86 Pulse Oximetry 96 96 95 Oxygen Delivery Method Room Air Oxygen Flow Rate 0 0 07/08/23 09:58 07/08/23 12:00 Temperature 98.1 F Pulse Rate 104 H Respiratory Rate 16 Blood Pressure 115/82 Pulse Oximetry 96 94 Oxygen Delivery Method Room Air Oxygen Flow Rate 2 Oxygen Delivery Method Room Air Oxygen Flow Rate 2 Narrative Exam Narrative: General adult man alert oriented no acute distress Chest nonlabored respiration Abdomen soft appropriately tender to palpation. Objective Labs 07/08/23 06:00 07/08/23 06:00 Labs: Laboratory Results - last 24 hr 07/08/23 06:00 WBC 11.2 H RBC 5.67 Hgb 15.6 Hct 45.9 MCV 81.0 MCH 27.6 MCHC 34.1 RDW 15.6 H Plt Count 209 Neut % (Auto) 71.5 Lymph % (Auto) 17.8 L [place] % (Auto) 10.4 Eos % (Auto) 0.1 L Baso % (Auto) 0.2 Neut # (Auto) 8000 H Lymph # (Auto) 2000 [place] # (Auto) 1200 H Eos # (Auto) 0 Baso # (Auto) 0 Sodium 137 Potassium 4.3 Chloride 110 H Carbon Dioxide 19 L BUN 23 H Creatinine 1.00 Estimated GFR > 60 BUN/Creatinine Ratio 23.0 H Glucose 150 H Calcium 7.9 L PFSH Medical History (Updated 06/29/23 @ 13:11 by Jessica Tanner RN) HTN (hypertension) HLD (hyperlipidemia) Norovirus (06/11/22) Right kidney stone History of renal failure Bladder outlet obstruction Tobacco use Lower urinary tract symptoms Asymptomatic microscopic hematuria Hx of herpes genitalis Hx of nephrolithotomy with removal of calculi History of calculus of gallbladder Hx of primary hypertension Hx of gout Kidney stones Surgical History (Updated 06/29/23 @ 13:10 by Jessica Tanner RN) History of cholecystectomy H/O wrist surgery History of ankle surgery Family History Father Cancer Mother Lung cancer Social History marital status: unmarried,single household members: significant other lives independently: Yes occupational status: employed Smoking Status: Current every day smoker alcohol intake: current substance use type: does not use caffeine: Yes Assessment & Plan Post-op Postoperative Procedures: Procedures Operation Date: 07/07/23 12:15 Actual Procedure Side Surgeon p Laparoscopically Assisted Sigmoid Colectomy Not Applicable Renzo Coon MD Postoperative status narrative: 58-year-old man postoperative day 1 status post sigmoid colectomy for colovesicular fistula. Progressing appropriately postoperative -Cerrato catheter to remain in place for at least 10 days following fistula repair -full liquid diet weight to advance to regular until return of bowel function -nicotine patch -SCDs and Lovenox -PTOT
--- NOTE | 2023-07-08 13:35 | CM.DANOTE ---
Initial DCP Assessment Visit Note Reviewed EMR and team rounds for pt's medical status and updates. Pt is a 58 year-old M admitted post-op day 1 from a laparoscopic sigmoid colectomy and cystoscopy for a kidney stone, completed by Dr. Romero and Dr. Coon together. Pt and his life partner reside independently in their own home in [place]. Met with pt/partner at bedside to introduce self and role. Pt was found to be somnolent, expressing feeling that his pain was increasing and was looking forward to his next dose for relief. His partner shared that she was a ACCOUNTS PAYABLE ACCOUNTANT for several years, and if fully able to provide for all his care needs once he discharges home. They both decline the need for any in-home assistance or community resources at this time. DCP will continue to follow and assist should there be any further evolving needs during this admission. His partner will also transport him home once he's medically cleared for d/c. Discharge Planning/Care Management CM Discharge Assessment Start: 07/08/23 13:19 Freq: Status: Active Protocol: Document 07/08/23 13:19 DPL (Rec: 07/08/23 13:35 DPL [id number]) Discharge Planning Assessment Assigned Materials Recycler BRENDA Liriano Advance Directives? No History Provided By Patient,Medical Record Has Patient been admitted in last 30 No days? Prior Living Arrangements RV Comment 3 step into unit, 2 steps Household Members significant other Type of transporation used prior to Drives own vehicle admit Independent with ADL's Yes Is patient alert and oriented? Yes Caregiver for Another No Comment No identified d/c needs at this time. Comment OP f/u with [facility]. Discharge Plan Home Transportation Arrangement Famly Referrals Initiated None needed Whiteboard Updated in Patient Room with Yes name and ext. # of Materials Recycler Review Status In Process Please Provide Date Initial DC 07/08/23 Assessment Was Performed Pre-Anesthesia Assessment Start: 06/29/23 12:29 Freq: Status: Active Protocol: Document 06/29/23 12:29 CAB (Rec: 06/29/23 13:31 CAB [id number]) Pre-Anesthesia Assessment Preferred Name Jacob Patient Information Reviewed Via Phone Assessment Assessment Completed With Other Comment Pt gave verbal ok to complete phone assessment with girlfriend Stephie Primary Care Provider Ning Seen Specialist in Last 12 Months Yes Specialist Seen General surgeon,Urologist Primary Language Italian Preferred Language Italian Home Care Provider Required No Height 167.64 cm Weight 81.647 kg Body Mass Index (BMI) 29.0 Hearing Ability Normal Visual Assist Glasses Dentition Type Partial- Lower Barriers to Learning Memory Hx Anesthesia Reactions No Hx Family Anesthesia Reaction No Hx Malignant Hyperthermia No Hx Blood Transfusions No Anesthesia Review Requested No Alternative Energy Engineer No alcohol intake current alcohol intake frequency 0-2 drinks per day Alcohol Intake Frequency Other: Drinks more on the weekends Smoking Status Current every day smoker Tobacco type cigarettes how long ago did patient quit smoking Pt trying to quit smoking before surgery Substance Use Type marijuana Comment Pt advised not to smoke marijuana 24 hours prior Pain Present Denied Pain Musculoskeletal Symptoms Joint Pain,Limited Range of Motion History of Falling (Recent or History of Yes ) Patient is completely paralyzed or No completely immobile Mental Status Oriented to own ability Is patient on oxygen? No Does patient have ZIEGLER/SOB No Hx Sleep Apnea No Currently Taking a Beta Brett No Can You Climb a Flight of Stairs Without Yes SOB Hx Chest Pain No Hx SOB No Hx Syncope or Dizziness No Anti-Coagulant Therapy No Has a Lifts And Cranes Inspector No Cardiac Testing No Hx Pacemaker/ICD No Pacemaker Rep Required? No Cardiac Clearance Received Not Applicable Diet Type At Home Regular Dysphagia No Gastrointestinal Symptoms Diarrhea,Reflux Genitourinary Symptoms Hematuria Urinary Catheter Present No Hx Urinary Self Catheterization No Diabetes No Presence of External or Internal Medical Yes: right wrist/ankle Devices Received a COVID vaccine? No Marital Status Lives With significant other Current Living Arrangements RV Support System Significant Other Does the Patient Have Assistance After Yes Surgery Patient Discharge Plan Description Return Home Comment Pt advised 4 day length of stay per surgeon Feels Safe in Current Environment Yes Been Physically Hurt or Threatened By a No Person in Current Environment Do you have thoughts of harming yourself None or others? Are you currently considering suicide? No Do you have a plan to hurt yourself or No Plan others? Do You Have Any Spiritual Beliefs That No May Affect Your HC Choices? Do You Have Any Cultural Practices That No May Affect Your HC Choices? Who Can We Speak to About Patient's Care Family, friends Identifying Code for Release of Patient Declines to issue Information Health Care Proxy/Next of Kin Stephie (ex-/girlfriend now) Health Care Proxy Emergency Contact Name Stephie (ex-/girlfriend now) Emergency Contact Advance Directives? No Power of Certified [employer] Administrator No PAC Instructions Durable medical equipment, Medications to take/avoid, Nasal antibiotic,No ETOH/ petroleum product on skin DOS, NPO,Pre-surgical wash,Sensory aids,Sturdy shoes/comfortable clothes,Do not bring valuables and remove jewelry
[2023-07-08] MEDS: CALCIUM CARBONATE 500 MG TAB 1000 MG PO (19:44)
[2023-07-08] MEDS: IBUPROFEN 600 MG TABLET PO (22:23)
[2023-07-09] VITALS (14 sets, daily range): BP systolic 95–131; BP diastolic 61–75; PULSE 95–109; RESP 16–20; TEMP 36–36.8; O2SAT 92–100
[2023-07-09] MEDS: HYDROMORPHONE 0.5 MG INJ IV ×9 (01:41→23:15)
[2023-07-09] MEDS: ONDANSETRON 4 MG/2 ML INJ IV ×2 (01:41→08:26)
[2023-07-09] MEDS: CALCIUM CARBONATE 500 MG TAB 1000 MG PO (02:03)
[2023-07-09] MEDS: OXYCODONE IR 10 MG TABLET PO (03:32)
[2023-07-09 05:39] LABS: Add Manual Diff / Slide Review NO; Basophils Absolute Auto 100 /uL (0-100); Basophils Percent Auto 0.5 % (0-2); Eosinophils Absolute Auto 200 /uL (0-450); Eosinophils Percent Auto 1.3 % (2-4); Hematocrit 43.1 % (41-53); Hemoglobin 14.3 g/dL (13.5-17.5); Lymphocytes Absolute Auto 2500 /uL (1100-4500); Mean Corpuscular HGB Conc 33.2 % (30-36); Mean Corpuscular Hemoglobin 27.2 PG (26-34); Monocytes Absolute Auto 1600 /uL (0-900); Monocytes Percent Auto 11.2 % (3-14); Neutrophils Absolute Auto 9600 /uL (1500-7000); Platelet Count 211 X10^3/uL (150-400); Red Blood Cell Count 5.25 X10^6/uL (4.5-5.9); Red Cell Distribution Width 15.2 % (11.6-14.8)
[2023-07-09 06:14] LABS: BUN Creatinine Ratio 23.7 (6-22); Blood Urea Nitrogen 33 mg/dL (9-20); Calcium 8.6 mg/dL (8.4-10.2); Carbon Dioxide 25 mmol/L (22-32); Chloride 103 mmol/L (98-107); Estimated Glomerular Filt Rate 58 mL/min (>60); Glucose 130 mg/dL (80-110); HEMOLYSIS < 15 (0-50); Potassium 3.8 mmol/L (3.4-5.1); Sodium 134 mmol/L (137-145)
[2023-07-09] MEDS: lisinopriL 20 MG TABLET PO (09:27)
[2023-07-09] MEDS: ENOXAPARIN 40 MG/0.4 ML SYRINGE SUBCUT (09:28)
[2023-07-09] MEDS: PANTOPRAZOLE 40 MG VIAL 20 MG IV ×2 (09:29→20:52)
[2023-07-09] MEDS: SODIUM CHLORIDE 0.9% 1,000 ML 1000 ML IV (09:30)
--- NOTE | 2023-07-09 10:05 | PT-IP ANOTE ---
Per nursing pt is not appropriate for PT at this time due to ongoing medical concerns.
--- NOTE | 2023-07-09 10:20 | CM.DPC ---
DCP Cont. Reviewed EMR and team rounds for status updates. Pt will need continued IV fluids and time to advance diet. Likely will be here over the weekend before he is stable for d/c. Will continue to monitor.
[2023-07-09] MEDS: SODIUM CHLORIDE 0.9% 1,000 ML 125 ML IV ×2 (10:53→17:56)
--- NOTE | 2023-07-09 11:08 | PC.NURSE ---
Addendum entered by Zuleima Stout R.N. 07/09/23 16:33: Pt gradually beginning to feel better. Sat in chair for an hour w/o incidence. Med w/ Dilaudid Q 2 hr as per orders. Call light w/in reach, pt calls appropriately for needs. Continue w/plan of care. Original Note: Pt in 12/29 pain this morning. Med w/ dilaudid at 0830 w/no relief. Abd distended, taunt, No bowel tones noted. Abd dsg w/some dried shadow drainage noted. Pt c/o increased nausea, no relief w/ zofran Output in dasilva cath notified, came to assess. Orders for 1000cc bolus NS then to 125cc/hr 1100: pt state he is feeling much better at this time Call light w/in reach, pt camelia apprpriately for needs.
--- NOTE | 2023-07-09 13:12 | PM.PNPO.1 ---
Subjective Subjective Date Patient Seen: 07/09/23 Time Patient Seen: 13:13 Interval history: Postoperative day 2 status post sigmoid colectomy for colovesicular fistula Bloated minimal appetite no flatus or bowel movement. Exam Vital Signs (past 8 hours): - 07/09/23 06:00 07/09/23 06:12 07/09/23 08:00 Temperature 96.8 F L 97.0 F L Pulse Rate 101 H 104 H Respiratory Rate 16 16 Blood Pressure 95/63 102/61 Pulse Oximetry 94 94 93 Oxygen Delivery Method Room Air Oxygen Flow Rate 0 07/09/23 09:27 07/09/23 10:00 07/09/23 12:00 Temperature 98.2 F Pulse Rate 109 H Respiratory Rate 16 Blood Pressure 102/62 117/75 Pulse Oximetry 96 96 Oxygen Delivery Method Room Air Oxygen Flow Rate 0 Oxygen Delivery Method Room Air Oxygen Flow Rate 0 Narrative Exam Narrative: General adult man alert oriented uncomfortable Abdomen distended dressing clean dry intact. Drain serosanguineous Objective Labs 07/09/23 05:27 07/09/23 05:27 Labs: Laboratory Results - last 24 hr 07/09/23 05:27 WBC 14.0 H RBC 5.25 Hgb 14.3 Hct 43.1 MCV 82.0 MCH 27.2 MCHC 33.2 RDW 15.2 H Plt Count 211 Neut % (Auto) 69.0 Lymph % (Auto) 18.0 L [place] % (Auto) 11.2 Eos % (Auto) 1.3 L Baso % (Auto) 0.5 Neut # (Auto) 9600 H Lymph # (Auto) 2500 [place] # (Auto) 1600 H Eos # (Auto) 200 Baso # (Auto) 100 Sodium 134 L Potassium 3.8 Chloride 103 Carbon Dioxide 25 BUN 33 H Creatinine 1.39 H Estimated GFR 58 L BUN/Creatinine Ratio 23.7 H Glucose 130 H Calcium 8.6 PFSH Medical History (Updated 06/29/23 @ 13:11 by Jessica Tanner RN) HTN (hypertension) HLD (hyperlipidemia) Norovirus (06/11/22) Right kidney stone History of renal failure Bladder outlet obstruction Tobacco use Lower urinary tract symptoms Asymptomatic microscopic hematuria Hx of herpes genitalis Hx of nephrolithotomy with removal of calculi History of calculus of gallbladder Hx of primary hypertension Hx of gout Kidney stones Surgical History (Updated 06/29/23 @ 13:10 by Jessica Tanner RN) History of cholecystectomy H/O wrist surgery History of ankle surgery Family History Father Cancer Mother Lung cancer Social History marital status: unmarried,single household members: significant other lives independently: Yes occupational status: employed Smoking Status: Current every day smoker alcohol intake: current substance use type: does not use caffeine: Yes Assessment & Plan Post-op Postoperative Procedures: Procedures Operation Date: 07/07/23 12:15 Actual Procedure Side Surgeon p Laparoscopically Assisted Sigmoid Colectomy Not Applicable Renzo Coon MD Postoperative status narrative: 58-year-old man postoperative day 2 status post sigmoid colectomy for colovesicular fistula. Has a postoperative ileus. -NPO await return of bowel function -JACOB 1 L fluid bolus now start maintenance fluids -Cerrato catheter to remain for at least 10 days status post repair of colovesicular fistula -SCDs and prophylactic Lovenox
--- NOTE | 2023-07-09 14:12 | DIET.CONS ---
Dietary Consultation Note Admission Date: 07/07/2023 11:38 Assessment: 58 y M admitted for sigmoid colectomy. Nutrition screened for low MNA score. Pt unable to tolerated full liquid and transferred back to NPO. Per surgery, has postop ileus. Met with pt at bedside. He reports normal appetite pre-surgery with adequate intake and no notice of weight loss before this week. NFPE not performed due to pt in pain. Ht: 167.64 cm Wt: 74.843 kg BMI: 26.6 UBW: 80.739 kg on 05/20/23 (-7% weight loss within 2 months, non-severe) Last BM: 07/07/23 (07/07/23 20:19) MNA: 8 Charles Score: 18 Diet: 07/09/23 08:59 NPO Diet Diet Modifications: NPO Type: NPO except for Meds Nutrition Percent Meal Consumed pt npo 07/09/23 12:00 Percent Meal Consumed 25% 07/08/23 18:00 Percent Meal Consumed 25% 07/08/23 13:15 Labs: RBC 5.25 X10^6/uL (4.5-5.9) 07/09/23 05:27 Hgb 14.3 g/dL (13.5-17.5) 07/09/23 05:27 Hct 43.1 % (41-53) 07/09/23 05:27 Creatinine 1.39 mg/dL (0.66-1.25) H 07/09/23 05:27 Nutrition Diagnosis: Inadequate oral intake r/t decreased ability to consume adequate intake as evidenced by NPO/clear liquids diet x2 days in setting of post op recovery of sigmoid colectomy and post op ileus Interventions: 1. Order protein supplement when diet is advanced EER: 5224-6822 kcals/day (25 kcals/kg per BMI) 70-80 g protein/day (1.0 g/kg per JACOB non-catabolic) Monitoring/Evaluations: diet advancement, weight Electronically Signed by: Eulalia Gutierrez 07/09/23 14:12 Clinical Dietitian [address] [id number]
--- NOTE | 2023-07-09 14:16 | OT.IP.TRT ---
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) Surgery Performed Operation Date: 07/07/23 12:15 Actual Procedures p Laparoscopically Assisted Sigmoid Colectomy(Not Applicable) - Renzo Coon MD Occupational Therapy Treatment Note M2 OT-IP Current Condition Start: 07/08/23 11:33 Freq: Status: Active Protocol: Document 07/08/23 11:00 [facility] (Rec: 07/08/23 11:52 [facility] [id number]) Occupational Therapy Current Condition Current Condition Evaluation Date 07/08/23 Treatment Diagnosis S/P colon resection Diagnosis Onset Date 07/07/23 Post Operative Precautions Abdominal Surgery Precautions Log Roll,Lifting Restrictions, Gait Belt above Incisional Area M3 OT- IP Subjective and Pain Start: 07/08/23 11:33 Freq: Status: Active Protocol: Document 07/09/23 13:30 HECTOR (Rec: 07/09/23 14:16 DANIELMIJUAN R [id number]) OT- Subjective Occupational Therapy Visit Type Type Treatment Note Visit Start Time 13:30 Visit Stop Time 14:00 Occupational Therapy Visit Comments Patient Comments Pt agreed to participate in skilled OT services. Patient/Caregiver Goals To go home. OT Pain Assessment Pain When Pain Assessed At Rest Pain Present Pain Present Pain Reported Location abd Intensity 7 Scale Used Numeric (0 - 10) M4 OT- IP ADL's Start: 07/08/23 11:33 Freq: Status: Active Protocol: Document 07/09/23 13:30 HECTOR (Rec: 07/09/23 14:16 DANIELMIJUAN R [id number]) OT [id number] Comments OT Self-Feeding Comments Pt currently NPO OT ADL-Oral Care General Eval Oral Care Ability Independent Comments Oral Care Comments Pt performed oral hygiene sink side. Pt performs task slowly with several standing rbs during task. Pt was able to open and manage all items necessary for brushing teeth and using mouth wash. Pt OT ADL-Dressing General Eval Upper Body Dressing Ability Total Assistance Lower Body Dressing Ability Total Assistance Comments OT Dressing Comments Pt's abdominal binding loosened during sink side ADLs . Pt required total A to reapply. Pt declined being educated on LB AE. Both pt and significant other state that he does not need to use them, she will assist him instead upon d/c. Pt required total A to adjust his socks. M5 OT- IP IADL's Start: 07/08/23 11:33 Freq: Status: Active Protocol: Document 07/08/23 11:00 [facility] (Rec: 07/08/23 11:52 [facility] [id number]) OT-Instrumental Activities of Daily Living Deficits IADL Deficits Identified Deficits Home Safety Awareness Awareness of Need for Assistance at Home Good Awareness Ability to Problem Solve Emergency Able to Problem Solve Situations Medication Management Medication Management Comments Pt a bit groggy at this time and will benefit from assist. Meal Preparation Meal Preparation Caregiver Provides Assist Office Support Clerk Office Support Clerk Caregiver Provides Assist M6 OT- IP Functional Cognition Start: 07/08/23 11:33 Freq: Status: Active Protocol: Document 07/08/23 11:00 [facility] (Rec: 07/08/23 11:52 [facility] [id number]) Cognitive Factors Limiting Selfcare Function Cognitive Ability Level of Alertness Alert,Drowsy Patient Orientation Name,Age,Birthday,Month,Date, Year,Day of Week,Place, Situation Attention Span Ability Capable of Focused Attention, Capable of Sustained Attention Ability to Follow Commands Able to Follow Multi-Step Commands Cognitive Comments Cognitive Assessment Comments Intact and able to follow abdominal precautions after initial education. OT- Vision and Hearing OT- Hearing Assessment OT- Hearing Assessment WFL M7 OT- IP Mobility and Balance Start: 07/08/23 11:33 Freq: Status: Active Protocol: Document 07/09/23 13:30 HECTOR (Rec: 07/09/23 14:16 DANIELMIJUAN R [id number]) OT- Bed Mobility Assessment Supine to Sit Supine to Sit Assist Minimal Assistance,Head of Bed Elevated OT-Transfer Assessment Sit to and From Stand Sit to and from Stand Contact Guard Assistance Transfers Transfer Ability Standby Assistance,Contact Guard Assistance Technique Transfer Destination Chair Transfer Technique Stand Step Pivot Devices Transfer Assistive Devices Gait Belt,Front Wheeled Walker Comments Mobility Comments Pt ambulated from bed to chair approximately 5' and sat in chair. Pt rested briefly before standing and ambulating to sink for sink side ADLs. Pt with vcs prn for hand placement, walker placement, and general safety. OT- Balance Assessment Sitting Balance and Reactions Static Sitting Balance Ability Good Dynamic Sitting Balance Ability Good Standing Balance and Reactions Static Standing Balance Ability Good Dynamic Standing Balance Ability Good M8 OT- IP Objective Assessments Start: 07/08/23 11:33 Freq: Status: Active Protocol: Document 07/08/23 11:00 [facility] (Rec: 07/08/23 11:52 [facility] [id number]) OT Gross Range of Motion Upper Extremity Range of Motion Assessment Within Functional Limits OT Strength Upper Extremity Strength Assessment Within Functional Limits M9 OT- IP Assessment and Plan Start: 07/08/23 11:33 Freq: Status: Active Protocol: Document 07/09/23 13:30 HECTOR (Rec: 07/09/23 14:16 HECTOR [id number]) OT Summary Assessment and Plan Potential Rehabilitation Potential Excellent Analytic Complexity at Evaluation Low Summary OT Impairments Pain,Balance,Functional Mobility,Dressing,Toileting, Bathing,Toilet Transfers, Shower Transfers,Activity Tolerance Progress Towards Goals Progressing Toward Goals,Slow Progress due to Pain,Slow Progress due to Activity Tolerance Assessment Summary OT discussed AE for LB dressing with pt and significant other. We discussed pt's fifth wheel setup. Per pt and significant other, pt does not have room for a shower chair. Pt will be using sponge baths for bathing until he is safe enough to dip stand loader his shower. Significant other says she will get a grab bar for the bathroom to assist with t/fs from commode and shower. Both pt and significant other decline education for LB AE. They are concerned with space in home environment and prefer for her to assist him instead . Pt continues to demonstrate decreased activity tolerance. Skilled OT services continue to be appropriate per POC. Pt left up in chair with all needs met and in reach. Nsg notified of pt's positioning. Goals Dressing Goal Independent,Long Handled Shoe Horn,Telecom Manager,Sock Aid Toileting Goal Independent Bathing Goal Standby Assistance Toilet Transfer Goal Independent Shower Transfer Goal Standby Assistance Patient/Caregiver Education Goal Demonstrate Post-Op Precautions Days to Meet Goals 5 Frequency of Treatment Frequency Of Treatment Once a Day Treatment Plan OT Treatment Plan ADL Training,Functional Mobility,Patient/Family Education,Discharge Planning Discharge Recommendations OT Discharge Recommendations Home with Assistance Home Equipment Needs LB dressing, shower chair, long handled brush Transportation Needs at Discharge Private Vehicle
--- NOTE | 2023-07-09 16:27 | PC.NURSE ---
Pt arrived at 1115 from PACU, Denies discomfort Aquacell dsg to right anterior hip CDI IVF infusing as per orders. Spinal effective to upper thigh. Assisted to BSC by PT & staff Pt oriented to room & sudhir system. Call light w/in reach, bed alarm on for pt safety. Continue w/plan of care,
[2023-07-09] MEDS: MELATONIN 3 MG TABLET 6 MG PO (21:23)
[2023-07-10] VITALS (11 sets, daily range): BP systolic 101–128; BP diastolic 59–87; PULSE 18–91; RESP 16–18; TEMP 36.4–36.9; O2SAT 92–100
[2023-07-10] MEDS: SODIUM CHLORIDE 0.9% 1,000 ML 125 ML IV ×2 (01:39→19:06)
[2023-07-10] MEDS: HYDROMORPHONE 0.5 MG INJ IV ×2 (04:19→07:51)
[2023-07-10 06:00] LABS: Add Manual Diff / Slide Review NO; Basophils Absolute Auto 100 /uL (0-100); Basophils Percent Auto 0.6 % (0-2); Eosinophils Absolute Auto 400 /uL (0-450); Eosinophils Percent Auto 2.9 % (2-4); Hematocrit 36.5 % (41-53); Hemoglobin 12.1 g/dL (13.5-17.5); Lymphocytes Absolute Auto 1800 /uL (1100-4500); Lymphocytes Percent Auto 12.5 % (25-40); Mean Corpuscular HGB Conc 33.2 % (30-36); Mean Corpuscular Hemoglobin 27.1 PG (26-34); Mean Corpuscular Volume 81.6 fL (80-100); Monocytes Absolute Auto 1100 /uL (0-900); Monocytes Percent Auto 8.2 % (3-14); Neutrophils Absolute Auto 10700 /uL (1500-7000); Neutrophils Percent Auto 75.8 % (50-75); Platelet Count 192 X10^3/uL (150-400); Red Blood Cell Count 4.48 X10^6/uL (4.5-5.9); Red Cell Distribution Width 15.5 % (11.6-14.8)
[2023-07-10 06:16] LABS: Blood Urea Nitrogen 25 mg/dL (9-20); Calcium 8.1 mg/dL (8.4-10.2); Carbon Dioxide 20 mmol/L (22-32); Chloride 114 mmol/L (98-107); Estimated Glomerular Filt Rate > 60 mL/min (>60); Glucose 103 mg/dL (80-110); HEMOLYSIS < 15 (0-50); Sodium 138 mmol/L (137-145)
[2023-07-10] MEDS: PANTOPRAZOLE 40 MG VIAL 20 MG IV ×2 (09:03→20:08)
[2023-07-10] MEDS: ENOXAPARIN 40 MG/0.4 ML SYRINGE SUBCUT (09:04)
[2023-07-10] MEDS: levoFLOXacin 250 MG TABLET 750 MG PO (09:04)
[2023-07-10] MEDS: OXYCODONE IR 10 MG TABLET PO ×3 (09:07→16:22)
--- NOTE | 2023-07-10 09:53 | P.PN_ITS ---
Subjective Subjective Date Patient Seen: 07/10/23 Time Patient Seen: 09:54 Interval history: s/p sigmoid resection with colovesical fistula repair. no flatus or BM. Exam Vital Signs (past 8 hours): - 07/10/23 02:00 07/10/23 04:15 07/10/23 06:00 Temperature 97.5 F L Pulse Rate 90 Respiratory Rate 17 Blood Pressure 101/64 Pulse Oximetry 92 94 94 Oxygen Delivery Method Room Air Room Air Oxygen Flow Rate 0 07/10/23 08:00 07/10/23 08:00 Temperature 97.7 F 97.7 F Pulse Rate 88 88 Respiratory Rate 18 16 Blood Pressure 110/59 L 110/59 L Pulse Oximetry 94 94 Oxygen Delivery Method Oxygen Flow Rate Oxygen Delivery Method Room Air Oxygen Flow Rate 0 Narrative Exam Narrative: abdomen soft and distended. wounds dry and intact. Objective Labs 07/10/23 05:51 07/10/23 05:51 Labs: Laboratory Results - last 24 hr 07/10/23 05:51 WBC 14.0 H RBC 4.48 L Hgb 12.1 L Hct 36.5 L MCV 81.6 MCH 27.1 MCHC 33.2 RDW 15.5 H Plt Count 192 Neut % (Auto) 75.8 H Lymph % (Auto) 12.5 L [place] % (Auto) 8.2 Eos % (Auto) 2.9 Baso % (Auto) 0.6 Neut # (Auto) 61156 H Lymph # (Auto) 1800 [place] # (Auto) 1100 H Eos # (Auto) 400 Baso # (Auto) 100 Sodium 138 Potassium 4.0 Chloride 114 H Carbon Dioxide 20 L BUN 25 H Creatinine 0.96 Estimated GFR > 60 BUN/Creatinine Ratio 26.0 H Glucose 103 Calcium 8.1 L PFSH Medical History (Updated 06/29/23 @ 13:11 by Jessica Tanner RN) HTN (hypertension) HLD (hyperlipidemia) Norovirus (06/11/22) Right kidney stone History of renal failure Bladder outlet obstruction Tobacco use Lower urinary tract symptoms Asymptomatic microscopic hematuria Hx of herpes genitalis Hx of nephrolithotomy with removal of calculi History of calculus of gallbladder Hx of primary hypertension Hx of gout Kidney stones Surgical History (Updated 06/29/23 @ 13:10 by Jessica Tanner RN) History of cholecystectomy H/O wrist surgery History of ankle surgery Family History Father Cancer Mother Lung cancer Social History marital status: unmarried,single household members: significant other lives independently: Yes occupational status: employed Smoking Status: Current every day smoker alcohol intake: current substance use type: does not use caffeine: Yes Assessment & Plan Post-op Postoperative Procedures: Procedures Operation Date: 07/07/23 12:15 Actual Procedure Side Surgeon p Laparoscopically Assisted Sigmoid Colectomy Not Applicable Renzo Coon MD Postoperative status: post-op ileus Postoperative status narrative: Ileus appears to be resolving. elevated WBC persistent. Postoperative plan narrative: Plan: Clear liquid diet, increase activity. Levaquin po for elevated WBC
--- NOTE | 2023-07-10 10:09 | PT.IPTN ---
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) Surgery Performed Operation Date: 07/07/23 12:15 Actual Procedures p Laparoscopically Assisted Sigmoid Colectomy(Not Applicable) - Renzo Coon MD Physical Therapy Treatment Note M2 PT-IP Current Condition Start: 07/08/23 08:23 Freq: NEEDED Status: Active Protocol: Document 07/08/23 10:57 MB (Rec: 07/08/23 11:40 MB [id number]) Physical Therapy Current Condition Current Condition Evaluation Date 07/08/23 Treatment Diagnosis Open sigmoid colectomy M3 PT-IP Subjective Start: 07/08/23 08:23 Freq: NEEDED Status: Active Protocol: Document 07/10/23 10:37 TS (Rec: 07/10/23 10:49 TS [id number]) Subjective Physical Therapy Visit Type Type Treatment Note Visit Start Time 10:09 Visit Stop Time 10:35 Number of STRAIGHT SLICING MACHINE OPERATOR Visits 1 Physical Therapy Visit Comments Patient Comments Pt found resting in chair, reports pain is 5/10, is agreeable to PT. Therapy Pain Assessment Pain When Pain Assessed At Rest Pain Present Pain Present Pain Reported Location abd Intensity 5 Description Tightness Pain Management Techniques Distraction,Modification of Treatment,Re-positioning, Timing of Activity with Medications M4 PT-IP Mobility and Gait Start: 07/08/23 08:23 Freq: NEEDED Status: Active Protocol: Document 07/10/23 10:37 TS (Rec: 07/10/23 10:49 TS [id number]) PT-Bed Mobility Assessment Rolling Type of Rolling Log Rolling,Roll to Left Level of Assist Standby Assistance Sit to Supine Sit to Supine Minimal Assistance,1 Person Assistance Scooting Scooting Up and Down in Bed Maximum Assistance PT-Transfer Assessment Sit to and From Stand Sit to and from Stand Contact Guard Assistance Equipment Transfer Assistive Device Gait Belt,Front Wheeled Walker Orthotic/Prosthetic Devices or Brace: No Comments Mobility Comments STS from chair CGA with use of FWW, pt has flexed posture. He ambulated ~80'SBA with continued flexed posture and required cues for being closer to FWW. Pt ambulated back to room, denied any lightheadedness or nausea. Sit to supine into bed Lashaun for Le's and cues for logroll. Pt scooted to HOB with MaxA x2. pt was left in bed, all needs met. Gait Assessment Gait Gait Assistance Required: Standby Assistance,1 Person Assist Distance (Feet) 80 Able to Maintain Weight Bearing Status Yes During Gait Assistive Devices Assistive Device Gait Belt,Front Wheeled Walker Orthotic/Prosthetic Devices or Brace: No Gait Deviations General Gait Pattern Antalgic,Decreased Stride Length,Decreased Feet Clearance,Flexed Trunk Factors Limiting Gait Function Factors Limiting Gait Function Decreased Activity Tolerance, Pain,Poor Safety Awareness Comments Gait Comments See mobility comments PT-Balance Assessment Sitting Balance and Reactions Static Sitting Balance Ability Good Dynamic Sitting Balance Ability Good Standing Balance and Reactions Static Standing Balance Ability Fair Dynamic Standing Balance Ability Fair Device Used RW M5 PT-IP Objective Assessments Start: 07/08/23 08:23 Freq: NEEDED Status: Active Protocol: Document 07/08/23 10:57 MB (Rec: 07/08/23 11:40 MB [id number]) Orientation Orientation/Cognition Level of Alertness Alert Orientation Name,Age,Birthday,Month,Date, Year,Day of Week,Place, Situation Language Function Ability No Deficits Noted Safety Awareness Decreased Safety Awareness Memory Description No Deficits Noted Gross Range of Motion Upper Extremity ROM Impairments Defer to OT Lower Extremity ROM Assessment Within Functional Limits Strength Lower Extremity Strength Assessment Bilaterally Impaired M6 PT-IP Treatment Start: 07/08/23 08:23 Freq: NEEDED Status: Active Protocol: Document 07/10/23 10:37 TS (Rec: 07/10/23 10:49 TS [id number]) Physical Therapy Treatment Education Education Provided Precautions,Safety M7 PT-IP Assessment and Plan Start: 07/08/23 08:23 Freq: NEEDED Status: Active Protocol: Document 07/10/23 10:37 TS (Rec: 07/10/23 10:49 [id number]) PT Summary Assessment and Plan Potential Rehabilitation Potential Good Summary Impairments Pain,ROM,Strength,Balance, Coordination,Bed Mobility, Transfers,Gait,Activity Tolerance Progress Towards Goals Progressing Toward Goals Assessment Summary Jacob is making progress with his mobility. He is SBA for STS with use of FWW. He progressed his gait to ~80' SBA with slow step to gait. He performed bed mobility SBA/ Lashaun for LE's into bed. He did require cues for logroll sequencing. PT is recommending pt return home with assist. Goals Bed Mobility Goal Independent Transfer Goal Independent,Front Wheeled Walker Gait Goal Independent,Front Wheel Walker Gait Distance 100 Other Goals Ascend and descend 3 steps with left rail. Consider gait training 100' with cane or without AD: chart had listed that pt lives in a RV and he might not have room for RW Days to Meet Goals 3 Frequency of Treatment Frequency Of Treatment Once a Day Treatment Plan Physical Therapy Treatment Plan Bed Mobility Training,Transfer Training,Gait Training, Therapeutic Exercise,Balance Retraining,Post Op Education, Discharge Planning,Hot or Cold Pack,Neuromuscular Re-ed, Coordination Retraining,Manual Therapy Precautions Abdominal Surgery Precautions Log Roll,Lifting Restrictions, Gait Belt above Incisional Area Weight Bearing Status Weight Bearing Status Weight Bear as Tolerated Recommendations To Nursing Amount of Assist Needed Standby Assistance Discharge Recommendations PT Discharge Recommendations Home with Assistance Other Discharge Recommendations May or may not need RW for issue at d/c given progress and space available if he is living in RV Transportation Needs at Discharge Private Vehicle
--- NOTE | 2023-07-10 13:17 | CM.DPC ---
DCP Cont. Reviewed EMR and team rounds for status updates. Per surgeon, pt will need to remain inpt for about 2-more days, he is starting on clear fluids today, and if that goes well, they will begin advancing his diet. Will continue to monitor for any evolving home d/c needs.
--- NOTE | 2023-07-10 17:04 | PC.NURSE ---
Pt appears to be progressing Pain meds changed to po Oxy. med x 3 w/ good relief, Tolerating clear liq w/o incidence. ABb. in hallway w/ staff. IV continue as per orders. Sat in chair much of the day Call light w/in reach, pt calls appropriately for needs. COntinue w/plan of care.
[2023-07-10] MEDS: OXYCODONE IR 5 MG TABLET PO (20:07)
[2023-07-10] MEDS: MELATONIN 3 MG TABLET 6 MG PO (20:08)
[2023-07-11] VITALS (13 sets, daily range): BP systolic 113–155; BP diastolic 70–84; PULSE 68–76; RESP 16–21; TEMP 36.1–36.5; O2SAT 95–98
[2023-07-11] MEDS: OXYCODONE IR 5 MG TABLET PO ×6 (00:03→23:55)
[2023-07-11] MEDS: SODIUM CHLORIDE 0.9% 1,000 ML 125 ML IV ×3 (02:08→17:58)
[2023-07-11] MEDS: OXYCODONE IR 10 MG TABLET PO (03:37)
[2023-07-11] MEDS: levoFLOXacin 250 MG TABLET 750 MG PO (06:10)
[2023-07-11] MEDS: hydroCHLOROthiazide 25 MG TABLET 12.5 MG PO (08:54)
[2023-07-11] MEDS: ENOXAPARIN 40 MG/0.4 ML SYRINGE SUBCUT (08:54)
[2023-07-11] MEDS: ASCORBIC ACID 500 MG TABLET PO (08:54)
[2023-07-11] MEDS: lisinopriL 20 MG TABLET PO (08:55)
[2023-07-11] MEDS: PANTOPRAZOLE 40 MG VIAL 20 MG IV ×2 (08:57→21:01)
--- NOTE | 2023-07-11 09:44 | PM.PNPO.1 ---
Subjective Subjective Date Patient Seen: 07/11/23 Time Patient Seen: 09:44 Interval history: No flatus or BM for 24hrs. belching, no nausea Exam Vital Signs (past 8 hours): - 07/11/23 02:00 07/11/23 03:25 07/11/23 06:00 Temperature 97.6 F Pulse Rate 68 Respiratory Rate 16 Blood Pressure 131/75 Pulse Oximetry 96 97 96 Oxygen Delivery Method Room Air Room Air Oxygen Flow Rate 0 07/11/23 08:00 07/11/23 08:55 Temperature 97.0 F L Pulse Rate 76 76 Respiratory Rate 16 Blood Pressure 113/81 113/81 Pulse Oximetry 95 Oxygen Delivery Method Oxygen Flow Rate Oxygen Delivery Method Room Air Oxygen Flow Rate 0 Narrative Exam Narrative: abdomen distended, non tender. Objective Labs 07/10/23 05:51 07/10/23 05:51 PFSH Medical History (Updated 06/29/23 @ 13:11 by Jessica Tanner RN) HTN (hypertension) HLD (hyperlipidemia) Norovirus (06/11/22) Right kidney stone History of renal failure Bladder outlet obstruction Tobacco use Lower urinary tract symptoms Asymptomatic microscopic hematuria Hx of herpes genitalis Hx of nephrolithotomy with removal of calculi History of calculus of gallbladder Hx of primary hypertension Hx of gout Kidney stones Surgical History (Updated 06/29/23 @ 13:10 by Jessica Tanner RN) History of cholecystectomy H/O wrist surgery History of ankle surgery Family History Father Cancer Mother Lung cancer Social History marital status: unmarried,single household members: significant other lives independently: Yes occupational status: employed Smoking Status: Current every day smoker alcohol intake: current substance use type: does not use caffeine: Yes Assessment & Plan Post-op Postoperative Procedures: Procedures Operation Date: 07/07/23 12:15 Actual Procedure Side Surgeon p Laparoscopically Assisted Sigmoid Colectomy Not Applicable Renzo Coon MD Postoperative status: post-op ileus Postoperative status narrative: Still no adequate return of bowel function. Appears more comfortable. Postoperative plan narrative: CBC and CMP to determine if there are electrolyte or infection issues slowing his recovery. Dulcolax suppository Time Spent With Patient Time with patient: 15-24 minutes
[2023-07-11 10:15] LABS: Add Manual Diff / Slide Review NO; Basophils Absolute Auto 100 /uL (0-100); Basophils Percent Auto 0.7 % (0-2); Eosinophils Absolute Auto 400 /uL (0-450); Eosinophils Percent Auto 4.2 % (2-4); Hemoglobin 12.4 g/dL (13.5-17.5); Lymphocytes Absolute Auto 1700 /uL (1100-4500); Lymphocytes Percent Auto 18.5 % (25-40); Mean Corpuscular HGB Conc 33.4 % (30-36); Mean Corpuscular Hemoglobin 27.2 PG (26-34); Mean Corpuscular Volume 81.5 fL (80-100); Monocytes Absolute Auto 800 /uL (0-900); Monocytes Percent Auto 9.4 % (3-14); Neutrophils Absolute Auto 6000 /uL (1500-7000); Neutrophils Percent Auto 67.2 % (50-75); Platelet Count 220 X10^3/uL (150-400); Red Blood Cell Count 4.54 X10^6/uL (4.5-5.9); White Blood Cell Count 8.9 X10^3/uL (4.5-11.0)
[2023-07-11 10:28] LABS: Alanine Aminotransferase 31 IU/L (<50); Albumin 3.4 g/dL (3.5-5.0); Albumin Globulin Ratio 1.1 (1.0-2.8); Alkaline Phosphatase 58 U/L (38-126); Aspartate Aminotransferase 26 IU/L (17-59); BUN Creatinine Ratio 21.3 (6-22); Bilirubin Total 0.4 mg/dL (0.2-1.3); Blood Urea Nitrogen 17 mg/dL (9-20); Calcium 8.3 mg/dL (8.4-10.2); Carbon Dioxide 22 mmol/L (22-32); Chloride 115 mmol/L (98-107); Estimated Glomerular Filt Rate > 60 mL/min (>60); Glucose 125 mg/dL (80-110); HEMOLYSIS < 15 (0-50); Potassium 3.7 mmol/L (3.4-5.1); Sodium 142 mmol/L (137-145); Total Protein 6.4 g/dL (6.3-8.2)
--- NOTE | 2023-07-11 10:40 | PT.IPTN ---
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) Surgery Performed Operation Date: 07/07/23 12:15 Actual Procedures p Laparoscopically Assisted Sigmoid Colectomy(Not Applicable) - Renzo Coon MD Physical Therapy Treatment Note M2 PT-IP Current Condition Start: 07/08/23 08:23 Freq: NEEDED Status: Active Protocol: Document 07/08/23 10:57 MB (Rec: 07/08/23 11:40 MB [id number]) Physical Therapy Current Condition Current Condition Evaluation Date 07/08/23 Treatment Diagnosis Open sigmoid colectomy M3 PT-IP Subjective Start: 07/08/23 08:23 Freq: NEEDED Status: Active Protocol: Document 07/11/23 10:22 MB (Rec: 07/11/23 10:40 MB [id number]) Subjective Physical Therapy Visit Type Type Treatment Note Visit Start Time 10:22 Visit Stop Time 10:35 Number of SENIOR ABAP DEVELOPER Visits 0 Physical Therapy Visit Comments Patient Comments I just wish I could fart. Second attempt checking in on pt today and his pain is better after having received pain medication. Therapy Pain Assessment Pain When Pain Assessed At Rest Pain Present Pain Present Pain Reported Location abd Intensity 5 Pain Management Techniques Distraction,Modification of Treatment,Re-positioning, Timing of Activity with Medications M4 PT-IP Mobility and Gait Start: 07/08/23 08:23 Freq: NEEDED Status: Active Protocol: Document 07/11/23 10:22 MB (Rec: 07/11/23 10:40 MB [id number]) PT-Transfer Assessment Sit to and From Stand Sit to and from Stand Contact Guard Assistance Equipment Transfer Assistive Device Gait Belt,Front Wheeled Walker Orthotic/Prosthetic Devices or Brace: No Comments Mobility Comments PT manages drain, catheter and IV lines and pt requires CGA for STS chair to RW and back Gait Assessment Gait Gait Assistance Required: Standby Assistance,1 Person Assist Distance (Feet) 90 Able to Maintain Weight Bearing Status Yes During Gait Assistive Devices Assistive Device Gait Belt,Front Wheeled Walker Orthotic/Prosthetic Devices or Brace: No Gait Deviations General Gait Pattern Antalgic,Decreased Stride Length,Decreased Feet Clearance,Flexed Trunk Factors Limiting Gait Function Factors Limiting Gait Function Decreased Activity Tolerance, Pain,Poor Balance,Poor Safety Awareness Comments Gait Comments Pt gait trains 90' x2 with RW. He states that family member is putting in a rail today at one step but he doesn't know which side. Stair Climbing Assessment Evaluation Level of Assist On Stairs Contact Guard Assistance,1 Person Assistance Devices Stair Climbing Assistive Devices Left Railing Technique/Endurance Stair Climbing Direction Ascend and Descend Stair Climbing Technique Step to Step Number of Steps Climbed 3 Stair Climbing Set # Repetitions (reps) 1 Comments Stair Climbing Comments Pt facing left rail and both hands on rail, ascend right foot first and descend left foot first, step-to pattern PT-Balance Assessment Sitting Balance and Reactions Static Sitting Balance Ability Good Dynamic Sitting Balance Ability Good Standing Balance and Reactions Static Standing Balance Ability Fair Dynamic Standing Balance Ability Fair Device Used RW M5 PT-IP Objective Assessments Start: 07/08/23 08:23 Freq: NEEDED Status: Active Protocol: Document 07/08/23 10:57 MB (Rec: 07/08/23 11:40 MB [id number]) Orientation Orientation/Cognition Level of Alertness Alert Orientation Name,Age,Birthday,Month,Date, Year,Day of Week,Place, Situation Language Function Ability No Deficits Noted Safety Awareness Decreased Safety Awareness Memory Description No Deficits Noted Gross Range of Motion Upper Extremity ROM Impairments Defer to OT Lower Extremity ROM Assessment Within Functional Limits Strength Lower Extremity Strength Assessment Bilaterally Impaired M6 PT-IP Treatment Start: 07/08/23 08:23 Freq: NEEDED Status: Active Protocol: Document 07/11/23 10:22 MB (Rec: 07/11/23 10:40 MB [id number]) Physical Therapy Treatment Education Education Provided Precautions,Safety M7 PT-IP Assessment and Plan Start: 07/08/23 08:23 Freq: NEEDED Status: Active Protocol: Document 07/11/23 10:22 MB (Rec: 07/11/23 10:40 MB [id number]) PT Summary Assessment and Plan Potential Rehabilitation Potential Good Summary Impairments Pain,ROM,Strength,Balance, Coordination,Bed Mobility, Transfers,Gait,Activity Tolerance Progress Towards Goals Progressing Toward Goals Assessment Summary Jacob gait trained further today and was able to try stair training. His gait is slow and antalgic. Con't trying varying AD as able given home living situation in . Goals Bed Mobility Goal Independent Transfer Goal Independent,Front Wheeled Walker Gait Goal Independent,Front Wheel Walker Gait Distance 100 Other Goals Ascend and descend 3 steps with left rail. Consider gait training 100' with cane or without AD: chart had listed that pt lives in a RV and he might not have room for RW Days to Meet Goals 3 Frequency of Treatment Frequency Of Treatment Once a Day Treatment Plan Physical Therapy Treatment Plan Bed Mobility Training,Transfer Training,Gait Training, Therapeutic Exercise,Balance Retraining,Post Op Education, Discharge Planning,Hot or Cold Pack,Neuromuscular Re-ed, Coordination Retraining,Manual Therapy Precautions Abdominal Surgery Precautions Log Roll,Lifting Restrictions, Gait Belt above Incisional Area Weight Bearing Status Weight Bearing Status Weight Bear as Tolerated Recommendations To Nursing Amount of Assist Needed Standby Assistance Discharge Recommendations PT Discharge Recommendations Home with Assistance Other Discharge Recommendations May or may not need RW for issue at d/c given progress and space available if he is living in RV Transportation Needs at Discharge Private Vehicle
--- NOTE | 2023-07-11 11:31 | CM.DPC ---
DCP Cont. Reviewed EMR and team rounds for status updates. Pt is tolerating fluids, but is still advancing diet. May need another 1-2 days prior to being medically stable for d/c. Waiting for return of bowel function. Will continue to monitor.
[2023-07-11] MEDS: BISACODYL 10 MG SUPP PR (13:08)
[2023-07-12] VITALS (12 sets, daily range): BP systolic 131–142; BP diastolic 77–87; PULSE 72–87; RESP 17–20; TEMP 36–36.7; O2SAT 92–100
[2023-07-12] MEDS: SODIUM CHLORIDE 0.9% 1,000 ML 125 ML IV ×2 (01:37→10:30)
[2023-07-12] MEDS: OXYCODONE IR 10 MG TABLET PO ×2 (02:58→17:55)
--- NOTE | 2023-07-12 04:20 | PC.NURSE ---
Addendum entered by Meenu Moss R.N. 07/12/23 05:40: MD also was made aware that the pt's KAITLYNN drain had an output of 250 ml over the past hour. Original Note: Pt had a loose, bloody, mucoid stool. Pt denies being lightheaded, dizzy, and short of breath. Vital signs are stable. MD contacted and made aware of the situation and was not concerned at the moment. MD ordered CBC lab draw and to hold morning dose of lovenox.
[2023-07-12 05:07] LABS: Add Manual Diff / Slide Review NO; Basophils Absolute Auto 0 /uL (0-100); Basophils Percent Auto 0.4 % (0-2); Eosinophils Absolute Auto 300 /uL (0-450); Hemoglobin 13.6 g/dL (13.5-17.5); Lymphocytes Absolute Auto 1800 /uL (1100-4500); Lymphocytes Percent Auto 17.3 % (25-40); Mean Corpuscular HGB Conc 33.9 % (30-36); Mean Corpuscular Hemoglobin 27.5 PG (26-34); Mean Corpuscular Volume 81.1 fL (80-100); Monocytes Absolute Auto 900 /uL (0-900); Monocytes Percent Auto 8.6 % (3-14); Neutrophils Absolute Auto 7500 /uL (1500-7000); Neutrophils Percent Auto 70.7 % (50-75); Platelet Count 257 X10^3/uL (150-400); Red Blood Cell Count 4.93 X10^6/uL (4.5-5.9); Red Cell Distribution Width 15.1 % (11.6-14.8); White Blood Cell Count 10.6 X10^3/uL (4.5-11.0)
[2023-07-12] MEDS: OXYCODONE IR 5 MG TABLET PO ×4 (06:40→20:58)
[2023-07-12] MEDS: levoFLOXacin 250 MG TABLET 750 MG PO (06:40)
[2023-07-12] MEDS: ASCORBIC ACID 500 MG TABLET PO (08:38)
[2023-07-12] MEDS: lisinopriL 20 MG TABLET PO (08:38)
[2023-07-12] MEDS: hydroCHLOROthiazide 25 MG TABLET 12.5 MG PO (08:38)
--- NOTE | 2023-07-12 08:47 | OT.IP.TRT ---
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) Surgery Performed Operation Date: 07/07/23 12:15 Actual Procedures p Laparoscopically Assisted Sigmoid Colectomy(Not Applicable) - Renzo Coon MD Occupational Therapy Treatment Note M2 OT-IP Current Condition Start: 07/08/23 11:33 Freq: Status: Active Protocol: Document 07/08/23 11:00 [facility] (Rec: 07/08/23 11:52 [facility] [id number]) Occupational Therapy Current Condition Current Condition Evaluation Date 07/08/23 Treatment Diagnosis S/P colon resection Diagnosis Onset Date 07/07/23 Post Operative Precautions Abdominal Surgery Precautions Log Roll,Lifting Restrictions, Gait Belt above Incisional Area M3 OT- IP Subjective and Pain Start: 07/08/23 11:33 Freq: Status: Active Protocol: Document 07/12/23 08:47 [facility] (Rec: 07/12/23 08:54 [facility] [id number]) OT- Subjective Occupational Therapy Visit Type Type Treatment Note Visit Start Time 08:35 Visit Stop Time 08:47 Occupational Therapy Visit Comments Patient Comments Pt and Life Partner present in the room. Patient/Caregiver Goals TO go home. M4 OT- IP ADL's Start: 07/08/23 11:33 Freq: Status: Active Protocol: Document 07/12/23 08:47 [facility] (Rec: 07/12/23 08:54 [facility] [id number]) OT [id number] General Evaluation Self-Feeding Ability Independent OT ADL-Grooming Comments OT Grooming Comments Not performed. OT ADL-Oral Care Comments Oral Care Comments NOt performed. OT ADL-Dressing Comments OT Dressing Comments Spoke of LB dressing equipment needs and pt's life partner insistent that she will just assist him. Still suggested to car pick up driver items to help increase his independence. OT ADL-Toileting Comments OT Toileting Comments Pt will benefit from BSC and urinal. OT ADL-Bathing Comments OT Bathing Comments No performed. M5 OT- IP IADL's Start: 07/08/23 11:33 Freq: Status: Active Protocol: Document 07/08/23 11:00 [facility] (Rec: 07/08/23 11:52 [facility] [id number]) OT-Instrumental Activities of Daily Living Deficits IADL Deficits Identified Deficits Home Safety Awareness Awareness of Need for Assistance at Home Good Awareness Ability to Problem Solve Emergency Able to Problem Solve Situations Medication Management Medication Management Comments Pt a bit groggy at this time and will benefit from assist. Meal Preparation Meal Preparation Caregiver Provides Assist Otc Clerk Otc Clerk Caregiver Provides Assist M6 OT- IP Functional Cognition Start: 07/08/23 11:33 Freq: Status: Active Protocol: Document 07/08/23 11:00 [facility] (Rec: 07/08/23 11:52 [facility] [id number]) Cognitive Factors Limiting Selfcare Function Cognitive Ability Level of Alertness Alert,Drowsy Patient Orientation Name,Age,Birthday,Month,Date, Year,Day of Week,Place, Situation Attention Span Ability Capable of Focused Attention, Capable of Sustained Attention Ability to Follow Commands Able to Follow Multi-Step Commands Cognitive Comments Cognitive Assessment Comments Intact and able to follow abdominal precautions after initial education. OT- Vision and Hearing OT- Hearing Assessment OT- Hearing Assessment WF M8 OT- IP Objective Assessments Start: 07/08/23 11:33 Freq: Status: Active Protocol: Document 07/08/23 11:00 [facility] (Rec: 07/08/23 11:52 [facility] [id number]) OT Gross Range of Motion Upper Extremity Range of Motion Assessment Within Functional Limits OT Strength Upper Extremity Strength Assessment Within Functional Limits M9 OT- IP Assessment and Plan Start: 07/08/23 11:33 Freq: Status: Active Protocol: Document 07/12/23 08:47 [facility] (Rec: 07/12/23 08:54 [facility] [id number]) OT Summary Assessment and Plan Potential Rehabilitation Potential Excellent Analytic Complexity at Evaluation Low Summary OT Impairments Pain,Balance,Functional Mobility,Dressing,Toileting, Bathing,Toilet Transfers, Shower Transfers,Activity Tolerance Progress Towards Goals Progressing Toward Goals,Slow Progress due to Pain,Slow Progress due to Activity Tolerance Assessment Summary Able to discuss equipment needs of grab bars, LB dressing equipment, BSC, and possible shower chair to use at home. Pt's Life Partner insistent that she is able to care for him and assist with all ADL needs. Therefore pt just wanting to focus on physical therapy at this time and discharge pt for OT services. Frequency of Treatment Frequency Of Treatment Discharge Discharge Recommendations OT Discharge Recommendations Home with Assistance Home Equipment Needs LB dressing, shower chair, long handled brush, BCS, FWW Transportation Needs at Discharge Private Vehicle
--- NOTE | 2023-07-12 08:47 | PT.IPTN ---
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) Surgery Performed Operation Date: 07/07/23 12:15 Actual Procedures p Laparoscopically Assisted Sigmoid Colectomy(Not Applicable) - Renzo Coon MD Physical Therapy Treatment Note M2 PT-IP Current Condition Start: 07/08/23 08:23 Freq: NEEDED Status: Active Protocol: Document 07/08/23 10:57 MB (Rec: 07/08/23 11:40 MB [id number]) Physical Therapy Current Condition Current Condition Evaluation Date 07/08/23 Treatment Diagnosis Open sigmoid colectomy M3 PT-IP Subjective Start: 07/08/23 08:23 Freq: NEEDED Status: Active Protocol: Document 07/12/23 08:10 MB (Rec: 07/12/23 08:47 MB [id number]) Subjective Physical Therapy Visit Type Type Treatment Note Visit Start Time 08:10 Visit Stop Time 08:33 Number of HUNTING SALES ASSOCIATE Visits 0 Physical Therapy Visit Comments Patient Comments Pt is agreeable to PT. Therapy Pain Assessment Pain When Pain Assessed At Rest Pain Present Pain Present Pain Reported Location abd Intensity 5 Pain Management Techniques Distraction,Modification of Treatment,Re-positioning, Timing of Activity with Medications M4 PT-IP Mobility and Gait Start: 07/08/23 08:23 Freq: NEEDED Status: Active Protocol: Document 07/12/23 08:10 MB (Rec: 07/12/23 08:47 MB [id number]) PT-Transfer Assessment Sit to and From Stand Sit to and from Stand Contact Guard Assistance Equipment Transfer Assistive Device Gait Belt,Front Wheeled Walker Orthotic/Prosthetic Devices or Brace: No Comments Mobility Comments PT manages drain, catheter and IV lines and pt requires CGA for STS chair to RW and back Gait Assessment Gait Gait Assistance Required: Standby Assistance,1 Person Assist Distance (Feet) 90 Able to Maintain Weight Bearing Status Yes During Gait Assistive Devices Assistive Device Gait Belt,Front Wheeled Walker Orthotic/Prosthetic Devices or Brace: No Gait Deviations General Gait Pattern Antalgic,Decreased Stride Length,Decreased Feet Clearance,Flexed Trunk Factors Limiting Gait Function Factors Limiting Gait Function Decreased Activity Tolerance, Pain,Poor Balance,Poor Safety Awareness Comments Gait Comments Pt gait trains 90' x2 with RW. His gait is slow Stair Climbing Assessment Evaluation Level of Assist On Stairs Contact Guard Assistance,1 Person Assistance Devices Stair Climbing Assistive Devices Left Railing Technique/Endurance Stair Climbing Direction Ascend and Descend Stair Climbing Technique Step to Step Number of Steps Climbed 3 Stair Climbing Set # Repetitions (reps) 2 Comments Stair Climbing Comments Pt facing left rail and both hands on rail, ascend right foot first and descend left foot first, step-to pattern and signficant other arrives and she states that steps do not have enough room for each foot on one step to go side ways and so ascend and descend holding left rail and step-to with feet forward second trial PT-Balance Assessment Sitting Balance and Reactions Static Sitting Balance Ability Good Dynamic Sitting Balance Ability Good Standing Balance and Reactions Static Standing Balance Ability Fair Dynamic Standing Balance Ability Fair Device Used RW M5 PT-IP Objective Assessments Start: 07/08/23 08:23 Freq: NEEDED Status: Active Protocol: Document 07/08/23 10:57 MB (Rec: 07/08/23 11:40 MB [id number]) Orientation Orientation/Cognition Level of Alertness Alert Orientation Name,Age,Birthday,Month,Date, Year,Day of Week,Place, Situation Language Function Ability No Deficits Noted Safety Awareness Decreased Safety Awareness Memory Description No Deficits Noted Gross Range of Motion Upper Extremity ROM Impairments Defer to OT Lower Extremity ROM Assessment Within Functional Limits Strength Lower Extremity Strength Assessment Bilaterally Impaired M6 PT-IP Treatment Start: 07/08/23 08:23 Freq: NEEDED Status: Active Protocol: Document 07/12/23 08:10 MB (Rec: 07/12/23 08:47 MB [id number]) Physical Therapy Treatment Education Education Provided Precautions,Safety M7 PT-IP Assessment and Plan Start: 07/08/23 08:23 Freq: NEEDED Status: Active Protocol: Document 07/12/23 08:10 MB (Rec: 07/12/23 08:47 MB [id number]) PT Summary Assessment and Plan Potential Rehabilitation Potential Good Summary Impairments Pain,ROM,Strength,Balance, Coordination,Bed Mobility, Transfers,Gait,Activity Tolerance Progress Towards Goals Progressing Toward Goals Assessment Summary Jacob presents with similar pain to last date and similar transfer and gait distance. Steps performed twice as significant other arrives and describes step situation at home. She states she can get RW from [employer]. Goals Bed Mobility Goal Independent Transfer Goal Independent,Front Wheeled Walker Gait Goal Independent,Front Wheel Walker Gait Distance 100 Other Goals Ascend and descend 3 steps with left rail. Days to Meet Goals 3 Frequency of Treatment Frequency Of Treatment Once a Day Treatment Plan Physical Therapy Treatment Plan Bed Mobility Training,Transfer Training,Gait Training, Therapeutic Exercise,Balance Retraining,Post Op Education, Discharge Planning,Hot or Cold Pack,Neuromuscular Re-ed, Coordination Retraining,Manual Therapy Precautions Abdominal Surgery Precautions Log Roll,Lifting Restrictions, Gait Belt above Incisional Area Weight Bearing Status Weight Bearing Status Weight Bear as Tolerated Recommendations To Nursing Amount of Assist Needed Standby Assistance Discharge Recommendations PT Discharge Recommendations Home with Assistance Transportation Needs at Discharge Private Vehicle
--- NOTE | 2023-07-12 11:32 | PM.PNPO.1 ---
Subjective Subjective Date Patient Seen: 07/12/23 Time Patient Seen: 11:32 Interval history: Had a BM this morning and passed flatus. S/P LAR and repair of colovesicle fistula. Exam Vital Signs (past 8 hours): - 07/12/23 03:48 07/12/23 06:11 07/12/23 07:00 Temperature 97.5 F L 96.8 F L Pulse Rate 76 72 Respiratory Rate 17 18 Blood Pressure 139/83 131/77 Pulse Oximetry 97 96 98 Oxygen Delivery Method Room Air Oxygen Flow Rate 0 0 0 07/12/23 08:38 07/12/23 10:00 Temperature Pulse Rate 72 Respiratory Rate Blood Pressure 131/77 Pulse Oximetry 98 Oxygen Delivery Method Room Air Oxygen Flow Rate 0 Oxygen Delivery Method Room Air Oxygen Flow Rate 0 Narrative Exam Narrative: Abdomen is soft and nontender. Drain has increased in volume but remains clear(likely fluid mobilization as his urine output has picked up as well). Const General: cooperative and lethargic Neck Neck: trachea midline Resp Effort & Inspection: normal respiratory effort and able to speak in complete sentences Cardio Rate: regular rate Rhythm: regular rhythm Skin General: turgor normal Neuro General: patient alert, patient awake and patient oriented x3 Cognition: normal cognition Psych Appearance: grossly normal Mental Status: mental status grossly normal Judgment: judgment good Objective Labs 07/12/23 04:09 07/11/23 10:07 Labs: Laboratory Results - last 24 hr 07/12/23 04:09 WBC 10.6 RBC 4.93 Hgb 13.6 Hct 40.0 L MCV 81.1 MCH 27.5 MCHC 33.9 RDW 15.1 H Plt Count 257 Neut % (Auto) 70.7 Lymph % (Auto) 17.3 L [place] % (Auto) 8.6 Eos % (Auto) 3.0 Baso % (Auto) 0.4 Neut # (Auto) 7500 H Lymph # (Auto) 1800 [place] # (Auto) 900 Eos # (Auto) 300 Baso # (Auto) 0 PFSH Medical History (Updated 06/29/23 @ 13:11 by Jessica Tanner RN) HTN (hypertension) HLD (hyperlipidemia) Norovirus (06/11/22) Right kidney stone History of renal failure Bladder outlet obstruction Tobacco use Lower urinary tract symptoms Asymptomatic microscopic hematuria Hx of herpes genitalis Hx of nephrolithotomy with removal of calculi History of calculus of gallbladder Hx of primary hypertension Hx of gout Kidney stones Surgical History (Updated 06/29/23 @ 13:10 by Jessica Tanner RN) History of cholecystectomy H/O wrist surgery History of ankle surgery Family History Father Cancer Mother Lung cancer Social History marital status: unmarried,single household members: significant other lives independently: Yes occupational status: employed Smoking Status: Current every day smoker alcohol intake: current substance use type: does not use caffeine: Yes Assessment & Plan Post-op Postoperative Procedures: Procedures Operation Date: 07/07/23 12:15 Actual Procedure Side Surgeon p Laparoscopically Assisted Sigmoid Colectomy Not Applicable Renzo Coon MD Postoperative status: doing well Postoperative plan: advance diet Postoperative plan narrative: stop IV fluid, concentrate on nutrition and mobilization. Time Spent With Patient Time with patient: 15-24 minutes
--- NOTE | 2023-07-12 12:23 | CM.DPNOTE ---
DCP Note PHYSICAL GEOGRAPHER reviewed EMR. Pt is POD 5. Per chart review, pt had small mucusy BM. Ambulating more. Attempting to advance diet. PT rec home with assistance, OT rec home with assistance, discharing OT due to pt's partner insisting she can assist with ADLs at home. Per nursing staff, pt's drain is outputting more liquid now. PHYSICAL GEOGRAPHER met with pt and partner in room. Pt quiet during interaction. Partner primary participant in dcp conversation. Partner Stephie was hopeful pt would dc on Wednesday to give her time to set up the home. this PHYSICAL GEOGRAPHER conveyed to her that pt would dc when he's medically stable, and to work on getting the equip for home sooner rather than plan for Wednesday. Partner reports she could support him at home. Partner/pt deny other CM needs. PHYSICAL GEOGRAPHER and nursing staff witnessed verbal disagreement between surgeon and partner. Partner insistent to wanting to speak with Dr. Coon. Surgeon calmly reported to partner that Dr. Coon was not here today, and that she treats the pt not pt's family. Partner left the acute care floor following the conversation. Plan: home with partner when stable. Pt and partner deny other CM needs. CM team will continue to follow closely. BRENDA Mcdonald
--- NOTE | 2023-07-12 15:08 | PC.NURSE ---
~0900 patient spouse expressing discontent with care and discharge plan. ~1130 Increased KAITLYNN drainage overnight and throughout the day - Talked to Dr. Mack regarding increased KAITLYNN drainage- she is not concerned at this time because the color is improving (serosanguineous) and this is expected due to dieresis. Will continue to monitor drainage and output.
--- NOTE | 2023-07-12 15:09 | PC.NURSE ---
I went to speak with patient and S.O. regarding concerns with plan of care. Stephie not at bedside. Patient reports that he does not need any drama and requested to ambulate. I assisted patient to ambulate in hyatt. Returned to chair, call light in reach denies futher need.
[2023-07-12] MEDS: ACETAMINOPHEN 325 MG TABLET 650 MG PO (20:59)
[2023-07-12] MEDS: SODIUM CHLORIDE 0.9% FLUSH 10 ML IV (20:59)
[2023-07-13] VITALS (8 sets, daily range): BP systolic 104–130; BP diastolic 67–78; PULSE 70–80; RESP 16–19; TEMP 36.2–36.6; O2SAT 94–97
[2023-07-13] MEDS: OXYCODONE IR 5 MG TABLET PO ×2 (05:19→13:11)
[2023-07-13] MEDS: levoFLOXacin 250 MG TABLET 750 MG PO (06:38)
[2023-07-13] MEDS: PANTOPRAZOLE DR 40 MG TABLET PO (06:38)
--- NOTE | 2023-07-13 09:40 | PT.IPTN ---
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) Surgery Performed Operation Date: 07/07/23 12:15 Actual Procedures p Laparoscopically Assisted Sigmoid Colectomy(Not Applicable) - Renzo Coon MD Physical Therapy Treatment Note M2 PT-IP Current Condition Start: 07/08/23 08:23 Freq: NEEDED Status: Active Protocol: Document 07/08/23 10:57 MB (Rec: 07/08/23 11:40 MB [id number]) Physical Therapy Current Condition Current Condition Evaluation Date 07/08/23 Treatment Diagnosis Open sigmoid colectomy M3 PT-IP Subjective Start: 07/08/23 08:23 Freq: NEEDED Status: Active Protocol: Document 07/13/23 09:40 AB (Rec: 07/13/23 11:35 AB [id number]) Subjective Physical Therapy Visit Type Type Treatment Note Visit Start Time 09:40 Visit Stop Time 09:55 Number of [employer] CONSULTANT Visits 0 Physical Therapy Visit Comments Patient Comments agreeable to do PT Therapy Pain Assessment Pain When Pain Assessed At Rest Pain Present Pain Present Pain Reported Location abd Scale Used pain scale not stated; some pain per pt. Pain Management Techniques Distraction,Modification of Treatment,Re-positioning, Timing of Activity with Medications M4 PT-IP Mobility and Gait Start: 07/08/23 08:23 Freq: NEEDED Status: Active Protocol: Document 07/13/23 09:40 AB (Rec: 07/13/23 11:35 AB [id number]) PT-Bed Mobility Assessment Supine to Sit Supine to Sit Standby Assistance,Bedrails Sit to Supine Sit to Supine Standby Assistance,Bedrails PT-Transfer Assessment Sit to and From Stand Sit to and from Stand Standby Assistance,1 Person Assistance,Use of Upper Extremities Equipment Transfer Assistive Device Gait Belt,Front Wheeled Walker Orthotic/Prosthetic Devices or Brace: No Transfers Transfer Destination Bed,Chair Transfer Technique ambulated Transfer Ability Level of Assist Standby Assistance,1 Person Assistance,Use of Upper Extremities Comments Mobility Comments pt sitting on the chair and agreeable to do PT. reviewed abdominal precautions and log roll bed mobility. pt with short term memory issue and unable to recall and needs cues. completed sit to stand SBA and ambulated in the hallway using FWW SBA ~ 250 ft . presents with unsteady gait with decrease lawrence and LE elevation. pt ambulated back to his room and sat on EOB. completed log roll sit<>supine SBA using bed rail and cues for techniques. pt completed step transfer to chair without AD SBA. positioned pt on the chair. call light and table placed within reach. pt stated that his is preparing things that he needs at home: FWW, bed rail and grab bars in the toilet and stair railing on L ascending. Gait Assessment Gait Gait Assistance Required: Standby Assistance Distance (Feet) 250 Able to Maintain Weight Bearing Status Yes During Gait Assistive Devices Assistive Device Gait Belt,Front Wheeled Walker Orthotic/Prosthetic Devices or Brace: No Gait Deviations General Gait Pattern Decreased Stride Length, Decreased Feet Clearance Factors Limiting Gait Function Factors Limiting Gait Function Decreased Activity Tolerance, Decreased Strength,Difficulty Following Directions,Limited Range of Motion,Pain,Poor Balance,Poor Safety Awareness M5 PT-IP Objective Assessments Start: 07/08/23 08:23 Freq: NEEDED Status: Active Protocol: Document 07/08/23 10:57 MB (Rec: 07/08/23 11:40 MB [id number]) Orientation Orientation/Cognition Level of Alertness Alert Orientation Name,Age,Birthday,Month,Date, Year,Day of Week,Place, Situation Language Function Ability No Deficits Noted Safety Awareness Decreased Safety Awareness Memory Description No Deficits Noted Gross Range of Motion Upper Extremity ROM Impairments Defer to OT Lower Extremity ROM Assessment Within Functional Limits Strength Lower Extremity Strength Assessment Bilaterally Impaired M6 PT-IP Treatment Start: 07/08/23 08:23 Freq: NEEDED Status: Active Protocol: Document 07/13/23 09:40 AB (Rec: 07/13/23 11:35 AB [id number]) Physical Therapy Treatment Education Education Provided Precautions,Safety M7 PT-IP Assessment and Plan Start: 07/08/23 08:23 Freq: NEEDED Status: Active Protocol: Document 07/13/23 09:40 AB (Rec: 07/13/23 11:35 AB [id number]) PT Summary Assessment and Plan Potential Rehabilitation Potential Good Summary Impairments Pain,ROM,Strength,Balance, Coordination,Sensation,Tone, Cognition,Bed Mobility, Transfers,Gait,Activity Tolerance Progress Towards Goals Slow Progress due to Medical Issues,Slow Progress due to Activity Tolerance Assessment Summary pt progressing slowly with mobility and requiring SBA using FWW. pt requires cues for precautions and safety. pt plans to go home and spouse to assist pt. pt will also benefit from HHPT. Goals Bed Mobility Goal Independent Transfer Goal Independent,Front Wheeled Walker Gait Goal Independent,Front Wheel Walker Gait Distance 100 Other Goals Ascend and descend 3 steps with left rail. Days to Meet Goals 10 Frequency of Treatment Frequency Of Treatment Once a Day Treatment Plan Physical Therapy Treatment Plan Bed Mobility Training,Transfer Training,Gait Training, Therapeutic Exercise,Balance Retraining,Post Op Education, Discharge Planning,Hot or Cold Pack,Neuromuscular Re-ed, Coordination Retraining,Manual Therapy Precautions Abdominal Surgery Precautions Log Roll,Lifting Restrictions, Gait Belt above Incisional Area Recommendations To Nursing Amount of Assist Needed Standby Assistance Discharge Recommendations PT Discharge Recommendations Home with Assistance,Home Health Transportation Needs at Discharge Private Vehicle
[2023-07-13] MEDS: lisinopriL 20 MG TABLET PO (09:41)
[2023-07-13] MEDS: hydroCHLOROthiazide 25 MG TABLET 12.5 MG PO (09:41)
[2023-07-13] MEDS: ASCORBIC ACID 500 MG TABLET PO (09:41)
--- NOTE | 2023-07-13 10:34 | CM.DPNOTE ---
DCP Note SCRIBING MACHINE OPERATOR reviewed EMR. Per nursing staff, drain outputting less. Jaymie may dc later today, SCRIBING MACHINE OPERATOR met with pt in room. pt more talkative today. pt reports partner Stephie is getting home equip set up. Denies other CM needs. Plan; anticipate home with partner when medically stable. Anticipate later today. CM team will follow as needed. Genevieve Cobb, BRENDA
[2023-07-13] MEDS: ENOXAPARIN 40 MG/0.4 ML SYRINGE SUBCUT (11:01)
[2023-07-13] MEDS: SODIUM CHLORIDE 0.9% FLUSH 10 ML IV (11:02)
--- NOTE | 2023-07-13 13:05 | P.DS_ITS ---
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 He was incidentally found to have microscopic hematuria. Subsequently Dr. Romero of Urology at [facility] noted the presence of a colovesicular fistula during flexible cystoscopy May 2023. In addition a CT A/P demonstrates a colovesicular fistula. No major episodes of diverticulitis requiring hospitalization however he has had episodes of LLQ abdominal pain over the years. Previous CT from 2019 demonstrates a sigmoid/diverticular abscess. His most recent colonoscopy was performed at [facility] less than 5 years ago and notable only for diverticulosis. Prior abdominal surgery includes laparoscopic cholecystectomy Perioperative No prior anesthetic issues or bleeding issues with prior surgery. He is without dysnea on exertion, orthopnea, or angina. He does not take anticoagulation 1. Active tobacco use < 1pack per day, 30 pack years. Not considering quitting at this time 2. HTN -controlled with medication 3. History of resolved acute kidney failure. JACOB May 2022 2/ gastroenteritis Cr 6.3. Most recent Cr 0.8 Apr Discharge Providers Provider Date of admission: 07/07/23 11:38 Discharge Date: 07/13/23 Consults: 07/07/23 18:30 Consult to Discharge Planning Routine Comment: Consult to Occupational Therapy Evaluate & Treat Comment: Physician Instructions: Evaluate and treat Consult to Physical Therapy Evaluate & Treat Comment: Physician Instructions: Evaluate and Treat Discharge provider: Renzo Coon MD Summary Hospital Course Discharge Diagnosis: Colovesicular fistula Hospital Course: Jacob underwent a sigmoid colectomy laparoscopic converted to open 07/07/23. This was a difficult operation with significant pelvic adhesive disease. He remained hospitalized until July 12. He had a postoperative ileus which gradually resolved with conservative measures. At the time of discharge he is afebrile ambulatory, tolerating a diet, has return of bowel function and his pain is adequately controlled with oral pain medication. Exam Vital Signs (past 8 hours): - 07/13/23 06:27 07/13/23 08:00 07/13/23 09:41 Temperature 97.1 F L Pulse Rate 77 77 Respiratory Rate 16 Blood Pressure 108/67 108/67 Pulse Oximetry 96 97 Oxygen Delivery Method Room Air Oxygen Flow Rate 0 0 07/13/23 10:00 07/13/23 11:35 Temperature 97.9 F Pulse Rate 78 Respiratory Rate 16 Blood Pressure 130/71 Pulse Oximetry 97 97 Oxygen Delivery Method Room Air Oxygen Flow Rate 0 0 Oxygen Delivery Method Room Air Oxygen Flow Rate 0 Narrative Exam Narrative: General adult man alert oriented no acute distress Chest nonlabored respiration Abdomen soft appropriately tender to palpation. Midline incision clean dry intact with geoff. Extremities warm well perfused Objective Labs 07/12/23 04:09 07/11/23 10:07 [facility] Medical History (Updated 06/29/23 @ 13:11 by Jessica Tanner RN) HTN (hypertension) HLD (hyperlipidemia) Norovirus (06/11/22) Right kidney stone History of renal failure Bladder outlet obstruction Tobacco use Lower urinary tract symptoms Asymptomatic microscopic hematuria Hx of herpes genitalis Hx of nephrolithotomy with removal of calculi History of calculus of gallbladder Hx of primary hypertension Hx of gout Kidney stones Surgical History (Updated 06/29/23 @ 13:10 by Jessica Tanner RN) History of cholecystectomy H/O wrist surgery History of ankle surgery Family History Father Cancer Mother Lung cancer Social History marital status: unmarried,single household members: significant other lives independently: Yes occupational status: employed Smoking Status: Current every day smoker alcohol intake: current substance use type: does not use caffeine: Yes Discharge Plan Discharge Plan Patient Disposition: Home Provider Discharge Comment: -Okay to shower -Empty catheter as directed -leave dressing in place -Do not submerge wounds in water until seen in follow-up. -No lifting >10 lbs x 4 weeks. -Walking only for exercise for 4 weeks. -No driving while taking narcotics. Discharge orders & Medications Prescriptions: New celecoxib [Celebrex] 200 mg capsule 200 mg PO BID Qty: 20 0RF docusate sodium [Colace] 100 mg capsule 100 mg PO BID Qty: 30 0RF oxycodone 5 mg tablet 5 mg PO Q6H PRN (Reason: pain) Qty: 30 0RF acetaminophen [Tylenol] 325 mg capsule 650 mg PO QID PRN (Reason: pain) Qty: 60 0RF Continued atorvastatin 40 mg tablet 40 mg PO DAILY lisinopril-hydrochlorothiazide 20-12.5 mg tablet 1 tab PO DAILY ascorbic acid (vitamin C) [Vitamin C] 500 mg Capsule, Extended Release 1,000 mg PO DAILY icosapent ethyl [Vascepa] 1 gram Capsule 2 g PO BID valacyclovir 1 gram tablet 1,000 mg PO DAILY PRN (Reason: Genital herpes) sildenafil [Viagra] 50 mg tablet 50 mg PO DAILY PRN (Reason: Sexual Activity) Rx Instructions: administer 30 minutes to 4 hours before activity Discontinued neomycin 500 mg tablet 1 g PO TID Qty: 6 0RF Rx Instructions: administer at 1 PM, 2 PM, and 10 PM the day prior to surgery metronidazole 500 mg tablet 500 mg PO TID Qty: 3 0RF Rx Instructions: administer at 1 PM, 2 PM, and 10 PM the day prior to surgery Follow up/Referrals: Renzo Coon MD [Physician] - Diet/Activity/Treatments Diet: Diet as Tolerated Skin/Wound/Dressing Care Report to your healthcare provider any signs of infection, such as:: chills, fever, increased pain, unusual drainage and unusual redness Visit Report/Discharge Packet Instructions: How to Care for Your Cerrato Catheter -- Male, DI for Colectomy, DI for Laparoscopy, DI for Prescription Opioid Use, Celecoxib, [facility]: Wound Care Stand Alone Forms: Patient Portal/API, Stroke Signs & Symptoms, Surgery Discharge
--- NOTE | 2023-07-15 02:03 | PC.NURSE ---
Late entry for 07/09/23. Patient given 0.5mg dilauded for pain @ 07:05.
--- NOTE | 2023-08-05 14:34 | PC.NURSE ---
Late entry Patient reported pain- pulled 5mg po oxycodone from pyxis and patient fell asleep. 5 mg po oxycodone was given later, entry did not save in May.
== END 2023-07-13 15:30 | disposition home or self-care (01) | DRG 674 ==
PROVIDERS: Surgery; Admitting Provider Surgery; Referring Provider Surgery; Visit Provider Surgery
PROC: 0DTE0ZZ Resection of Large Intestine, Open Approach (ICD-10-PCS; principal; 2023-07-07 12:15)
DX: N32.1 Vesicointestinal fistula (principal); K56.7 Ileus, unspecified; K91.89 Other postprocedural complications and disorders of digestive system; K57.32 Diverticulitis of large intestine without perforation or abscess without bleeding; I10 Essential (primary) hypertension; E78.5 Hyperlipidemia, unspecified; K66.0 Peritoneal adhesions (postprocedural) (postinfection); Z72.0 Tobacco use
CPT/HCPCS: 36415; 80048; 80053; 82962; 85025; 97116; 97161; 97165; 97530; 97535; C9113; J0136; J1170; J1650; J2250; J2405; J2543; J2704; J3010; J3490

== ENCOUNTER → 2023-07-15 12:59 | Outpatient (CLI) | payer OTHER, SELFPAY ==
[2023-07-07 20:19] VITALS: BMI 26.6
--- NOTE | 2023-07-15 13:01 | DI.CT.S_ITS ---
PROCEDURE: CT CYSTOGRAM INDICATIONS: resolution? colovesicular fistula sp sigmoid colectomy TECHNIQUE: Both before and after gravity instillation of 10% Isovue contrast solution into the bladder through a Cerrato catheter, 5 mm axial images acquired from the bladder dome to the symphysis. 5 mm thick coronal and sagittal reformats were acquired. For radiation dose reduction, the following was used: automated exposure control, adjustment of mA and/or kV according to patient size. COMPARISON: [facility], CT, CT ABDOMEN PELVIS WO/W CON, 05/28/2023, 14:49. FINDINGS: Image quality: Diagnostic. Bladder: Cerrato catheter within the urinary bladder. No extravesicular contrast. Distal Ureters: No abnormal distension. PELVIS: Peritoneum and Bowel: Interval partial colectomy, surgical anastomosis in the deep pelvis. There is an indeterminate, masslike lesion adjacent to the anastomosis in the deep pelvis measuring 5.3 x 5.8 centimeter (series 3, image 24). Pelvic Organs: No adnexal mass. Prostate calcifications. Pelvic Nodes: No enlarged lymph nodes. Miscellaneous: Trace gas within the extraperitoneal space. Laparotomy scar. Bones: No aggressive osseous abnormality. IMPRESSION: No contrast external to the urinary bladder. Trace extraperitoneal gas, presumably related to recent surgery. Interval partial colectomy, surgical anastomosis in the deep pelvis. Inflammatory changes are present within this region, as well as an indeterminate masslike lesion in the deep pelvis measuring 5.3 x 5.8 centimeters. This could be a segment of under distended bowel (from a side to end anastomosis), or less likely inflammatory change/phlegmon. Correlate with symptoms of infection. Recommend short-term follow-up in [address] with IV contrast to evaluate for change. Dictated by: Jayesh Riley M.D. on 07/15/2023 at 16:01 Approved by: Jayesh Riley M.D. on 07/15/2023 at 16:11
== END ==
PROVIDERS: Referring Provider Surgery; Visit Provider Surgery
DX: N32.1 Vesicointestinal fistula (principal); Z90.49 Acquired absence of other specified parts of digestive tract; Z98.0 Intestinal bypass and anastomosis status
CPT/HCPCS: 72194; Q9967

== ENCOUNTER → 2023-09-01 16:35 | Outpatient (CLI) | payer OTHER, SELFPAY ==
[2023-07-07 20:19] VITALS: BMI 26.6
--- NOTE | 2023-09-01 16:38 | DI.RAD.S_ITS ---
PROCEDURE: XR KUB INDICATIONS: Follow-up right renal calculus TECHNIQUE: One view of the abdomen acquired. COMPARISON: [facility], CT, CT ABDOMEN PELVIS WO/W CON, 05/28/2023, 14:49. FINDINGS: Surgical changes and devices: None. Bowel: Bowel gas pattern is normal. Soft tissues: No suspicious abdominal calcifications. Visualized solid organ contours appear normal in size. Stable 4-5mm calcification projecting over the right renal shadow consistent with previously described non-obstructing right renal stone. Surgical clips in right upper quadrant from previous cholecystectomy. Bones: No suspicious bony lesions. IMPRESSION: No acute abnormality. Stable positioning of 4-5 mm calculus projecting over the right renal shadow. Dictated by: Jaciel Hood M.D. on 09/02/2023 at 11:31 Approved by: Jaciel Hood M.D. on 09/02/2023 at 11:37
== END ==
LOC: RAD 16:36
PROVIDERS: Referring Provider Specialist; Visit Provider Specialist
DX: N20.0 Calculus of kidney (principal); Z87.442 Personal history of urinary calculi
CPT/HCPCS: 74018

== ENCOUNTER 2023-09-15 10:06 | Emergency (ER) | payer OTHER, SELFPAY ==
[2023-07-07 20:19] VITALS: BMI 26.6
[2023-09-15] VITALS (8 sets, daily range): BP systolic 102–135; BP diastolic 68–76; PULSE 65–74; RESP 16; TEMP 36.5; O2SAT 97–100; BMI 27.4
--- NOTE | 2023-09-15 10:17 | ED.GENADULT ---
HPI - General Adult General Chief complaint: Abdominal Pain Stated complaint: needs imaging sent by [facility] Time Seen by Provider: 09/15/23 10:11 Source: patient Mode of arrival: Ambulatory History of Present Illness HPI narrative: Patient is a 58-year-old male who is here for evaluation of right lower quadrant abdominal pain. The symptoms have been present for the past couple days. Did have a bowel movement this morning that did not change any of his discomfort. No constipation. No diarrhea. No problems urinating. No vomiting. He did recently have a rectal vesicular fistula that was surgically repaired. Has not tried anything for symptoms prior to arrival. Related Data Home Medications Medication Instructions Recorded Confirmed sildenafil 50 mg tablet (Viagra) 50 mg PO DAILY PRN Sexual Activity 05/20/23 09/03/23 valacyclovir 1 gram tablet 1,000 mg PO DAILY PRN Genital 05/20/23 09/03/23 herpes atorvastatin 40 mg tablet 40 mg PO DAILY 06/18/23 09/03/23 lisinopril 20 1 tab PO DAILY 06/18/23 09/03/23 mg-hydrochlorothiazide 12.5 mg tablet ascorbic acid (vitamin C) 500 mg 1,000 mg PO DAILY 07/07/23 09/03/23 capsule,extended release (Vitamin C) icosapent ethyl 1 gram capsule 2 g PO BID 07/07/23 09/03/23 (Vascepa) Previous Rx's Medication Instructions Recorded oxycodone 5 mg tablet 5 mg PO Q6H PRN pain #10 tabs 08/05/23 Allergies Allergy/AdvReac Type Severity Reaction Status Date / Time No Known Drug Allergies Allergy Verified 09/15/23 10:12 Review of Systems Review of Systems ROS Unobtainable: All systems reviewed & are unremarkable except as noted in HPI and below Patient History Medical History HTN (hypertension) HLD (hyperlipidemia) Norovirus (06/11/22) Right kidney stone History of renal failure Bladder outlet obstruction Tobacco use Lower urinary tract symptoms Asymptomatic microscopic hematuria Hx of herpes genitalis Hx of nephrolithotomy with removal of calculi History of calculus of gallbladder Hx of primary hypertension Hx of gout Kidney stones Surgical History (Updated 06/29/23 @ 13:10 by Jessica Tanner RN) History of cholecystectomy H/O wrist surgery History of ankle surgery Family History Father Cancer Mother Lung cancer Social History marital status: unmarried,single household members: significant other lives independently: Yes occupational status: employed Smoking Status: Current every day smoker alcohol intake: current substance use type: does not use caffeine: Yes Smoking Status: Current every day smoker alcohol intake frequency: a few times a week Substance Use Type: marijuana Exam Initial Vital Signs Initial Vital Signs: Vital Signs Temperature 97.7 F 09/15/23 10:07 Pulse Rate 74 09/15/23 10:07 Respiratory Rate 16 09/15/23 10:07 Blood Pressure 135/76 09/15/23 10:07 Pulse Oximetry 100 09/15/23 10:07 Oxygen Delivery Method Room Air 09/15/23 10:07 Const General: cooperative, comfortable and No ill appearing HENMT Head: normal to inspection and normocephalic Resp Effort & Inspection: normal respiratory effort Cardio Rate: regular rate GI Inspection: normal to inspection and non-distended Palpation: soft, No firm, No guarding and tender (Right lower quadrant) Skin Other: Well-healed surgical scar midline lower abdomen consistent with stated surgical history Neuro General: patient alert, patient awake and moves all extremities Extrem General: normal to inspection Course Orders Ordered: ED Orders 09/15/23 10:17 CT abdomen pelvis w con Stat 09/15/23 10:20 Complete Blood Count AUTO DIFF Stat Comprehensive Metabolic Panel Stat Lipase Stat Discontinued Medications Sodium Chloride (Normal Saline 0.9%) 1,000 mls @ 1,000 mls/hr IV BOLUS ONE Stop: 09/15/23 11:16 Last Infusion: 09/15/23 11:37 Dose: Infused Documented By: Admin: 09/15/23 10:22 Dose: 1,000 mls/hr Documented By: MICHELLE Morphine Sulfate (Morphine 4 Mg/Ml Inj) 4 mg IV NOW ONE Stop: 09/15/23 10:28 Last Admin: 09/15/23 10:40 Dose: 4 mg Documented By: MICHELLE Vital Signs Vital signs: Vital Signs - 8 hr 09/15/23 10:07 09/15/23 10:11 09/15/23 10:30 Temperature 97.7 F Pulse Rate 74 72 70 Respiratory Rate 16 Blood Pressure 135/76 Pulse Oximetry 100 98 97 Oxygen Delivery Method Room Air 09/15/23 11:05 09/15/23 11:30 09/15/23 11:41 Temperature Pulse Rate 69 71 Respiratory Rate Blood Pressure 131/71 Pulse Oximetry 97 97 Oxygen Delivery Method 09/15/23 11:41 09/15/23 12:00 09/15/23 12:00 Temperature Pulse Rate 65 72 Respiratory Rate Blood Pressure 117/71 Pulse Oximetry 100 98 Oxygen Delivery Method Medical Decision Making Lab Data Lab results reviewed: Yes I reviewed the patient's lab results. 09/15/23 10:20 09/15/23 10:20 Labs: Lab Results 09/15/23 Range/Units 10:20 WBC 10.4 (4.5-11.0) X10^3/uL RBC 5.94 H (4.5-5.9) X10^6/uL Hgb 16.8 (13.5-17.5) g/dL Hct 48.3 (41-53) % MCV 81.3 (80-100) fL MCH 28.2 (26-34) PG MCHC 34.7 (30-36) % RDW 15.5 H (11.6-14.8) % Plt Count 233 (150-400) X10^3/uL Neut % (Auto) 53.4 (50-75) % Lymph % (Auto) 36.0 (25-40) % [place] % (Auto) 8.1 (3-14) % Eos % (Auto) 1.8 L (2-4) % Baso % (Auto) 0.7 (0-2) % Neut # (Auto) 5600 (3793-6109) /uL Lymph # (Auto) 3800 (0721-4137) /uL [place] # (Auto) 800 (0-900) /uL Eos # (Auto) 200 (0-450) /uL Baso # (Auto) 100 (0-100) /uL Sodium 138 (137-145) mmol/L Potassium 4.3 (3.4-5.1) mmol/L Chloride 107 (98-107) mmol/L Carbon Dioxide 23 (22-32) mmol/L BUN 21 H (9-20) mg/dL Creatinine 0.92 (0.66-1.25) mg/dL Estimated GFR > 60 (>60) mL/min BUN/Creatinine Ratio 22.8 H (6-22) Glucose 101 (80-110) mg/dL Calcium 9.0 (8.4-10.2) mg/dL Total Bilirubin 0.8 (0.2-1.3) mg/dL AST 44 (17-59) IU/L ALT 56 H (<50) IU/L Alkaline Phosphatase 97 (38-126) U/L Total Protein 9.0 H (6.3-8.2) g/dL Albumin 4.6 (3.5-5.0) g/dL Globulin 4.4 H (1.7-4.1) g/dL Albumin/Globulin Ratio 1.0 (1.0-2.8) Lipase 746 H (23-300) U/L Urine Dip Bedside Urine Glucose Negative Bedside Urine Bilirubin - Negative Bedside Urine Ketone - Negative Urine Specific Crosby 1.010 Bedside Urine Occult Blood - Negative Bedside Urine pH 5.5 Bedside Urine Protein - Negative Bedside Urine Urobilinogen - Negative Bedside Urine Nitrite - Negative Bedside Urine Leukocytes - Negative Esterase Point of care testing: Urine Dip Bedside Urine Glucose Negative Bedside Urine Bilirubin - Negative Bedside Urine Ketone - Negative Urine Specific Cros[place] 1.010 Bedside Urine Occult Blood - Negative Bedside Urine pH 5.5 Bedside Urine Protein - Negative Bedside Urine Urobilinogen - Negative Bedside Urine Nitrite - Negative Bedside Urine Leukocytes - Negative Esterase Imaging Data CT scan - abdomen/pelvis: Radiologist's Impression: PROCEDURE: CT ABDOMEN PELVIS W CON INDICATIONS: RLQ ABD pain TECHNIQUE: After the administration of intravenous contrast, axial sections acquired from the lung bases to the pubic symphysis. Coronal and sagittal reformats were performed. For radiation dose reduction, the following was used: automated exposure control, adjustment of mA and/or kV according to patient size. COMPARISON: [facility], CT, CT ABDOMEN PELVIS W CON, 03/03/2019, 0:01. [facility], CT, CT ABDOMEN PELVIS WO/W CON, 05/28/2023, 14:49. FINDINGS: Image quality: Diagnostic. Lower Chest: No significant findings. ABDOMEN: Liver: No solid mass. Mild diffuse hepatic steatosis. Gallbladder: Surgically absent Biliary ducts: No biliary dilation. Pancreas: No ductal dilation. Spleen: Size is within normal limits. Adrenal Glands: No adrenal nodules. Kidneys and Ureters: No hydronephrosis. No solid mass. No complex renal cystic lesion which requires follow up. 4 mm nonobstructing right lower pole renal stone. Stomach and Bowel: Interval partial distal colectomy. Apparent into side anastomosis between the distal descending colon or proximal sigmoid and the rectum with a blind ending rectal pouch slightly more anteriorly. Reference axial images 68 through 74. Normal postoperative appearance. Normal colonic caliber, without significant wall thickening. Normal caliber appendix with gas present at the tip. No evidence of acute appendicitis. Peritoneum: No abnormal intraperitoneal fluid. No free air. Ventral Wall: No significant ventral hernia. Abdominal Nodes: No retroperitoneal or mesenteric adenopathy by size criteria. Vessels: Aorta and inferior vena cava are normal in size. PELVIS: Pelvic Organs: Unremarkable. Bladder: No bladder wall thickening, accounting for underdistention. Pelvic Nodes: No enlarged lymph nodes. Miscellaneous: No inguinal hernias are seen. Bones: No aggressive osseous abnormality. IMPRESSION: 1. Interval partial distal colectomy with expected postsurgical result. 2. Normal appendix. 3. No acute abdominal process identified. 4. Remote cholecystectomy. 5. Mild diffuse hepatic steatosis. MDM Narrative Medical decision making narrative: Labs are unremarkable. CT scan shows no acute pathology. Does have a relatively benign exam. I had a long discussion with him in his regarding his symptoms. They understands lack of a definitive diagnosis. We went over the findings of the CT scan that there were any signs of bowel obstruction or any other surgical or infectious issue. We did discuss other potential causes. He understands that if his symptoms worsen over the next couple days that he should return to the emergency department. He has an appointment with a general surgeon on of this week. Discharge Plan Departure Patient Disposition: Home Clinical Impression: Abdominal pain Instructions: DI for Abdominal Pain-Adult Activity Restrictions/Additional Instructions: I do recommend that you keep your scheduled appointment with the general surgeon on this week. Continue to take all of your medications as directed. Recommend a bland diet. Return to the emergency department for new or worsening symptoms. Prescriptions: No Action atorvastatin 40 mg tablet 40 mg PO DAILY lisinopril-hydrochlorothiazide 20-12.5 mg tablet 1 tab PO DAILY oxycodone 5 mg tablet 5 mg PO Q6H PRN (Reason: pain) Qty: 10 0RF ascorbic acid (vitamin C) [Vitamin C] 500 mg Capsule, Extended Release 1,000 mg PO DAILY icosapent ethyl [Vascepa] 1 gram Capsule 2 g PO BID valacyclovir 1 gram tablet 1,000 mg PO DAILY PRN (Reason: Genital herpes) sildenafil [Viagra] 50 mg tablet 50 mg PO DAILY PRN (Reason: Sexual Activity) Rx Instructions: administer 30 minutes to 4 hours before activity Referrals: Miscellaneous,Doctor, MD [Primary Care Provider] - Stand Alone Forms: Patient Portal/API
[2023-09-15] MEDS: SODIUM CHLORIDE 0.9% 1,000 ML 1000 ML IV (10:22)
[2023-09-15 10:26] LABS: Add Manual Diff / Slide Review NO; Basophils Absolute Auto 100 /uL (0-100); Basophils Percent Auto 0.7 % (0-2); Eosinophils Absolute Auto 200 /uL (0-450); Eosinophils Percent Auto 1.8 % (2-4); Hematocrit 48.3 % (41-53); Hemoglobin 16.8 g/dL (13.5-17.5); Lymphocytes Absolute Auto 3800 /uL (1100-4500); Mean Corpuscular HGB Conc 34.7 % (30-36); Mean Corpuscular Hemoglobin 28.2 PG (26-34); Mean Corpuscular Volume 81.3 fL (80-100); Monocytes Absolute Auto 800 /uL (0-900); Monocytes Percent Auto 8.1 % (3-14); Neutrophils Absolute Auto 5600 /uL (1500-7000); Neutrophils Percent Auto 53.4 % (50-75); Platelet Count 233 X10^3/uL (150-400); Red Blood Cell Count 5.94 X10^6/uL (4.5-5.9); Red Cell Distribution Width 15.5 % (11.6-14.8); White Blood Cell Count 10.4 X10^3/uL (4.5-11.0)
[2023-09-15] MEDS: MORPHINE 4 MG/ML INJ IV (10:40)
[2023-09-15 10:41] LABS: Alanine Aminotransferase 56 IU/L (<50); Albumin 4.6 g/dL (3.5-5.0); Alkaline Phosphatase 97 U/L (38-126); Aspartate Aminotransferase 44 IU/L (17-59); BUN Creatinine Ratio 22.8 (6-22); Bilirubin Total 0.8 mg/dL (0.2-1.3); Blood Urea Nitrogen 21 mg/dL (9-20); Carbon Dioxide 23 mmol/L (22-32); Chloride 107 mmol/L (98-107); Estimated Glomerular Filt Rate > 60 mL/min (>60); Globulin 4.4 g/dL (1.7-4.1); Glucose 101 mg/dL (80-110); Lipase 746 U/L (23-300); Potassium 4.3 mmol/L (3.4-5.1); Sodium 138 mmol/L (137-145)
[2023-09-15 10:44] LABS: HEMOLYSIS 59 (0-50)
== END 2023-09-15 12:45 | disposition home or self-care (01) ==
PROVIDERS: Emergency Provider Emergency Medicine
DX: R10.31 Right lower quadrant pain (principal); Z79.899 Other long term (current) drug therapy
CPT/HCPCS: 36415; 74177; 80053; 81003; 83690; 85025; 96361; 96374; 99284; J2270; Q9967

== ENCOUNTER → 2023-12-03 09:21 | Outpatient (CLI) | payer OTHER, SELFPAY ==
[2023-07-07 20:19] VITALS: BMI 26.6
--- NOTE | 2023-12-03 09:23 | DI.RAD.S_ITS ---
PROCEDURE: XR KUB INDICATIONS: Right renal calc and Hx asymptomatic microscopic hematuria TECHNIQUE: One view of the abdomen acquired. COMPARISON: [facility], , XR KUB, 09/01/2023, 16:36. FINDINGS: Surgical changes and devices: Cholecystectomy clips. Bowel: Bowel gas pattern is normal. Soft tissues: No suspicious abdominal calcifications. Visualized solid organ contours appear normal in size. Stable 6 mm calcification projecting over the superior pole of the right kidney. Bones: No suspicious bony lesions. IMPRESSION: Stable 6 mm calcification projecting over the superior pole of the right kidney. Dictated by: Jayesh Riley M.D. on 12/03/2023 at 10:35 Approved by: Jayesh Riley M.D. on 12/03/2023 at 10:40
== END ==
PROVIDERS: Referring Provider Urology; Visit Provider Urology
DX: N20.0 Calculus of kidney (principal); R39.9 Unspecified symptoms and signs involving the genitourinary system
CPT/HCPCS: 74018; 87086

== ENCOUNTER → 2023-12-03 12:56 | Outpatient (CLI) | payer OTHER, SELFPAY ==
[2023-07-07 20:19] VITALS: BMI 26.6
== END ==
PROVIDERS: PCP Family Medicine; Visit Provider Urology
DX: R39.9 Unspecified symptoms and signs involving the genitourinary system (principal)
CPT/HCPCS: 87086

== ENCOUNTER 2025-01-21 20:14 | Emergency (ER) | payer OTHER, SELFPAY ==
[2023-07-07 20:19] VITALS: BMI 26.6
[2025-01-21 20:27] VITALS: BP 174/100; PULSE 86; RESP 18; TEMP 36.6; O2SAT 97; BMI 29.0
--- NOTE | 2025-01-21 20:30 | DI.RAD.S_ITS ---
PROCEDURE: XR KNEE RT 3V INDICATIONS: pain w/o known injury TECHNIQUE: 3 views of the knee were acquired. COMPARISON: None. FINDINGS AND IMPRESSION: Mild arthrosis with tricompartmental joint space narrowing and osteophytes. No displaced fracture or dislocation. Moderate extensor mechanism enthesopathy. No significant joint effusion. If there is high concern for further derangement, consider MRI evaluation. Dictated by: Bert Escalante M.D. on 01/21/2025 at 21:20 Approved by: Bert Escalante M.D. on 01/21/2025 at 21:21
--- NOTE | 2025-01-21 21:27 | ED.EXTPRO ---
HPI - Extremity Problem General Chief complaint: Extremity Problem,Nontraumatic Stated complaint: Rt knee pain Time Seen by Provider: 01/21/25 21:12 Source: patient Mode of arrival: Ambulatory History of Present Illness HPI Narrative: 59-year-old male complains of right knee pain since awakening earlier this morning. No injury recalled. No new activities. No prior knee surgeries or injections. Knee does not feel particularly swollen. Pain is most prominent superior aspect of the patella. No history of crystal arthropathy. No history of rheumatoid arthritis. No pain to ipsilateral foot ankle hip. Related Data Home Medications ?Medication ?Instructions ?Recorded ?Confirmed sildenafil 50 mg tablet (Viagra) 50 mg PO DAILY PRN Sexual Activity 05/20/23 12/03/23 valacyclovir 1 gram tablet 1,000 mg PO DAILY PRN Genital 05/20/23 12/03/23 herpes atorvastatin 40 mg tablet 40 mg PO DAILY 06/18/23 12/03/23 lisinopril 20 1 tab PO DAILY 06/18/23 12/03/23 mg-hydrochlorothiazide 12.5 mg tablet ascorbic acid (vitamin C) 500 mg 1,000 mg PO DAILY 07/07/23 12/03/23 capsule,extended release (Vitamin C) icosapent ethyl 1 gram capsule 2 g PO BID 07/07/23 12/03/23 (Vascepa) Previous Rx's ?Medication ?Instructions ?Recorded oxycodone 5 mg tablet 5 mg PO Q6H PRN pain #10 tabs 08/05/23 naproxen 500 mg tablet 500 mg PO BID 7 days #14 tabs 01/21/25 Allergies Allergy/AdvReac Type Severity Reaction Status Date / Time No Known Drug Allergies Allergy Verified 01/21/25 20:27 Patient History Medical History HTN (hypertension) HLD (hyperlipidemia) Norovirus (06/11/22) Right kidney stone History of renal failure Bladder outlet obstruction Tobacco use Lower urinary tract symptoms Asymptomatic microscopic hematuria Hx of herpes genitalis Hx of nephrolithotomy with removal of calculi History of calculus of gallbladder Hx of primary hypertension Hx of gout Kidney stones Surgical History (Updated 06/29/23 @ 13:10 by Jessica Tanner RN) History of cholecystectomy H/O wrist surgery History of ankle surgery Family History Father Cancer Mother Lung cancer Social History marital status: unmarried,single household members: significant other lives independently: Yes occupational status: employed Smoking Status: Current every day smoker alcohol intake: current substance use type: does not use caffeine: Yes Smoking Status: Current every day smoker alcohol intake frequency: a few times a week Exam Narrative Exam Narrative: GENERAL: Well-developed patient, in mild distress. HEAD: Atraumatic. Normocephalic. EYES: Pupils equal round and reactive. Extraocular motions intact. No scleral icterus. No injection or drainage. ENT: No obvious craniofacial traumatic injuries. Airway patent. NECK: Trachea midline. Non tender CARDIOVASCULAR: Regular rate and rhythm without murmurs, gallops, or rubs. RESPIRATORY: Clear to auscultation. Breath sounds equal bilaterally. No wheezes, rales, or rhonchi. GASTROINTESTINAL: Abdomen soft, non-tender, nondistended. EXTREMITIES: Tenderness to superior aspect of the right patella which is not dislocated in position, no gross effusion. Not particularly tender over the patella, no bursal swelling, no skin changes or cellulitis. No tenderness around the medial joint line or the lateral joint line of the knee. No tenderness along the inferior pole of the patella, nor along the patellar tendon to the insertion of proximal tibial tubercle. Position of comfort with slight flexion. BACK: Nontender without deformity or crepitance. No flank tenderness. NEURO: AOx3. Motor functions grossly nonfocal. SKIN: No rash or erythema of visible areas Initial Vital Signs Initial Vital Signs: Vital Signs Temperature 97.8 F 01/21/25 20:27 Pulse Rate 86 01/21/25 20:27 Respiratory Rate 18 01/21/25 20:27 Blood Pressure 174/100 H 01/21/25 20:27 Pulse Oximetry 97 01/21/25 20:27 Oxygen Delivery Method Room Air 01/21/25 20:27 Course Orders Ordered: ED Orders 01/21/25 20:30 XR knee RT 3V Stat Discontinued Medications Naproxen (Naproxen 250 Mg Tablet) 500 mg PO NOW ONE Stop: 01/21/25 21:36 Last Admin: 01/21/25 21:58 Dose: 500 mg Documented By: AI Vital Signs Vital signs: Vital Signs - 8 hr 01/21/25 20:27 Temperature 97.8 F Pulse Rate 86 Respiratory Rate 18 Blood Pressure 174/100 H Pulse Oximetry 97 Oxygen Delivery Method Room Air MDM - Extremity (Nontraumatic) MDM Narrative Medical decision making narrative: 59-year-old male with nontraumatic right knee pain since awaking this morning, no history of gout, afebrile, no gross effusion, some mild tenderness along the superior patella, consider tendinitis. Screening x-ray from triage shows arthritic change, no bony lesions or fractures or dislocation changes. We discussed NSAIDs, an oral naproxen, prescription sent to his listed pharmacy. Hurts to bear weight or move of the knee. Doubt septic knee. No gross effusion. Not particularly warm. Crutches nonweightbearing with right knee immobilizer for now. Follow up with Orthopedic surgery, consider occult injury ligamentous derangement. Might need follow up MRI evaluation if not improving. Discharged home. Return precautions discussed. Discharge Plan Departure Patient Disposition: Home Clinical Impression: Right anterior knee pain, Osteoarthritis Activity Restrictions/Additional Instructions: Nontraumatic right anterior knee pain. Some tenderness superior aspect of the patella, no skin changes or bruising. Could be strain/tear but no history of trauma recalled. Consider tendinitis. No gross fluid effusion of the knee joint on examination. No tenderness to the medial joint line or to the lateral joint line. Nor any tenderness to the middle anterior portion of the kneecap patella. Nor tenderness to the patellar tendon distal portion below the knee. X-ray showed arthritis changes but no obvious bony fracture or lesions to the bones. Osteoarthritis degenerative joint disease can itself causes type of pain, although the could have other causes such as tear or strain to the tendon, or inflammatory tendinitis as well. You not have any history of gout. Trial of oral anti-inflammatory pain medication, naproxen dose given, with prescription sent to requested pharmacy. In case of occult injury to soft tissue structures that you can not see on plain x-rays, we will protect the knee with immobilizer and crutches for now. Recheck with your regular doctor early this next week. Contact information also provided for [facility] on-call, if he would like to follow up with Orthopedic surgeon. Take naproxen as directed. Return to this/nearest emergency department for any change worsening symptoms or any concerns prior. Prescriptions: New naproxen 500 mg tablet 500 mg PO BID 7 Days Qty: 14 0RF No Action atorvastatin 40 mg tablet 40 mg PO DAILY lisinopril-hydrochlorothiazide 20-12.5 mg tablet 1 tab PO DAILY oxycodone 5 mg tablet 5 mg PO Q6H PRN (Reason: pain) Qty: 10 0RF ascorbic acid (vitamin C) [Vitamin C] 500 mg Capsule, Extended Release 1,000 mg PO DAILY icosapent ethyl [Vascepa] 1 gram Capsule 2 g PO BID valacyclovir 1 gram tablet 1,000 mg PO DAILY PRN (Reason: Genital herpes) sildenafil [Viagra] 50 mg tablet 50 mg PO DAILY PRN (Reason: Sexual Activity) Rx Instructions: administer 30 minutes to 4 hours before activity Referrals: Pam Gamble MD [Primary Care Provider, Family Practice] Eugenio Castro MD [Physician, Orthopedic Surgery] Stand Alone Forms: Patient Portal/API
[2025-01-21] MEDS: NAPROXEN 250 MG TABLET 500 MG PO (21:58)
== END 2025-01-21 22:12 | disposition home or self-care (01) ==
PROVIDERS: Emergency Provider Emergency Medicine; PCP Family Medicine
DX: M17.11 Unilateral primary osteoarthritis, right knee (principal); M25.561 Pain in right knee
CPT/HCPCS: 73562; 99283